=== PATIENT | female | born 1950 | race Hispanic/Latino ===

== ENCOUNTER 2025-01-13 13:30 | Inpatient (IN) | payer OTHER, MEDICAID ==
[~2025-01-13] VITALS: Ht 167.6 cm; Wt 48.2 kg
[2025-01-13] VITALS (7 sets, daily range): BP systolic 137–170; BP diastolic 50–66; PULSE 65–79; RESP 13–20; TEMP 98.3–98.5; O2SAT 98
--- NOTE | 2025-01-13 14:37 | HP ---
[facility] HISTORY AND PHYSICAL Date of Service: Jan 13, 2025 Time of Service: 14:29 HISTORY OF PRESENT ILLNESS: Date of service: 01/13/2025, patient was seen in ER room 19 74-year-old female with underlying history of orthostasis, anxiety, COPD who presented to the ER for further evaluation of syncope and frequent falls. Patient states her symptoms have been ongoing for about a month and a half. She feels dizzy when sitting up and standing up and reports having blacking out spells. Sometimes she has noted palpitations prior to the syncopal episode. Denies any nausea, vomiting or abdominal pain. She felt dizzy at Dr. [facility] today when standing up and almost felt like she would pass out. She denies cardiac history otherwise. Denies any history of cardiac arrhythmia. Denies being on antihypertensive medications at home. Patient reports with her recent fall, she hit the back of her head. Denies any headache currently. She did sustain a open wound close to the right elbow. Denies any significant pain to upper or lower extremities. She denies any history of epilepsy/seizures. Denies urinary incontinence or fecal incontinence or biting her tongue during the syncopal episodes. Patient in clinic was noted to have significant orthostatic changes with systolic blood pressure dropping from 137 mmHg to 94 mmHg. She has been receiving IV fluids in the nursing facility as well. On presentation, patient was noted to be afebrile with T-max of 97.3 F, heart rate of 98, blood pressure of 118/40. Patient will be admitted for further management of orthostatic hypotension. Patient will receive IV fluids. We will obtain blood work, we will check TSH, rule out adrenal insufficiency as well we will see how patient progresses in the next 48-72 hours. REVIEW OF SYSTEMS CONSTITUTIONAL: Denies fevers, chills, or night sweats. Reports having decreased appetite NEUROLOGICAL: Denies headache, amaurosis fugax, motor weakness, sensory deficit, vertigo/spinning sensation, gait abnormalities, or tremors. ENT: No hearing loss, otalgia, otorrhea, rhinitis, rhinorrhea, hoarseness, or sore throat. CARDIOVASCULAR: reports having recurrent syncopal episodes ongoing for the past one and a half month. PULMONARY: Denies any shortness of breath, cough, phlegm/sputum, hemoptysis, pleuritic chest pain. SLEEP: Denies morning headaches, daytime somnolence or napping. Denies difficulty falling asleep, staying asleep, waking from sleep. Denies knowledge of snoring. GASTROINTESTINAL: Denies any type of dysphagia to either liquids or solids. Denies nausea, vomiting, pyrosis, early satiety, abdominal pain, diarrhea, constipation, or changes in stool consistency or caliber. Denies coffee-ground emesis, hematemesis, hematochezia, or melanotic stools. GENITOURINARY: Denies frequency, urgency, nocturia, hematuria or incontinence (Storage/Irritative symptoms.) Low urinary stream, straining to void, urinary intermittency or hesitancy, splitting of the voiding stream, terminal dribbling. ENDOCRINOLOGIC: Denies polyuria, polydipsia, polyphagia or heat/cold intolerances. HEMATOLOGIC: Denies thrombophilia/previous clots, or coagulopathy/bleeding disorders. ONCOLOGIC: Denies personal history of malignancy. DERMATOLOGIC: Denies rashes or pruritus. PSYCHIATRIC: Denies any suicidal or homicidal ideation. Denies hallucinations. PAST MEDICAL HISTORY: History of COPD, dementia, anxiety, peripheral arterial disease, prior history of smoking PAST SURGICAL HISTORY: , history of surgery for abdominal aneurysm, cholecystectomy, prior history of lower extremity surgery for peripheral arterial disease PAST SOCIAL HISTORY: Patient is a resident of [facility] and rehab for the past five years, she has been using a wheelchair over the last one one due to recurrent syncopal episodes, needs assistance with IADLs FAMILY HISTORY: Denies major family history of medical conditions, denies any neurologic conditions Allergies: No known drug allergies Home medications: group home we will be sending list of medications to be reconciled and updated Coded Allergies: No Known Drug Allergies (Unverified Allergy, Unknown, 01/13/25) PHYSICAL EXAM GENERAL APPEARANCE: The patient is awake, alert, appears frail and elderly NEUROLOGICAL: Cranial nerves II-XII grossly intact. Motor is 5/5 in bilateral upper and lower extremities proximal to distal. No sensory deficits. HEENT: Face is symmetric. Pupils are equal and reactive. Extraocular movements are intact. NECK: Supple. No JVD. No thyromegaly. No submental, submandibular, pre- /postauricular, occipital or supraclavicular lymphadenopathy. CHEST: Normal chest expansion. No Telemetry. LUNGS: Absence of any rales, rhonchi or any wheezing. CARDIOVASCULAR: Regular. S1 and S2 normal. No appreciable rubs, murmurs or gallops. ABDOMEN: Soft, nontender, and nondistended. There is no rebound, voluntary guarding, or rigidity. : Deferred. No Nixon. EXTREMITIES: Non-edematous and not cyanotic. No clubbing. Good capillary refill. SKIN: Open wound noted to the right elbow with skin tear, multiple abrasions noted of the upper and lower extremity Vital Sign (Last 24 Hours) 01/13/25 14:19 Temp 97.3 Pulse 98 Resp 17 B/P (MAP) 118/40 Pulse Ox 98 O2 Delivery Room Air O2 Flow Rate 0 LABS: Labs including CBC, CMP, magnesium, CK, TSH is pending Current Medications Medications (Trade) Dose Ordered Sig/Garry Route PRN Reason Start Time Stop Time Status Last Admin Dose Admin Acetaminophen (TYLenol 325MG TAB) 650 mg Q6H PRN PO MILD PAIN (1-3) 01/13/25 14:30 02/12/25 14:29 UNV Albuterol (DUOneb) 1 udvial Q6H PRN IH SHORTNESS OF BREATH 01/13/25 14:30 02/12/25 14:29 UNV Atorvastatin Calcium (LIPItor 40MG) 40 mg HS PO 01/13/25 21:00 02/12/25 20:59 UNV Clonazepam (clonazePAM 0.5 mg) 0.5 mg BID PRN PO anxiety 01/13/25 14:30 02/12/25 14:29 UNV Memantine (NAmenDA 5 MG TAB) 5 mg DAILY PO 01/14/25 09:00 02/13/25 08:59 UNV Montelukast Sodium (SinguLAIR) 10 mg HS PO 01/13/25 21:00 02/12/25 20:59 UNV Ondansetron HCl (zoFRAN 4MG INJ) 4 mg Q6H PRN IVP NAUSEA/VOMITING 01/13/25 14:30 02/12/25 14:29 UNV Polyethylene Glycol (MIRalax 3350 17 GM POWD.PACK) 17 gm DAILY PRN PO constipation 01/13/25 14:30 02/12/25 14:29 UNV Sodium Chloride 1,000 ml @ 75 mls/hr [id number] IV 01/13/25 14:30 02/12/25 14:29 UNV Tiotropium [place] (Spiriva) 18 mcg DAILY IH 01/14/25 09:00 02/13/25 08:59 UNV Trazodone HCl (DesyREL/OlepTRO) 75 mg HS PO 01/13/25 21:00 02/12/25 20:59 UNV Venlafaxine HCl (EffEXOR 75 MG TAB) 75 mg DAILY PO 01/14/25 09:00 02/13/25 08:59 UNV DIAGNOSTICS / RADIOLOGY: Chest x-ray and CT head without contrast is pending ASSESSMENT: Orthostatic hypotension, POA Recurrent syncopal episodes with fall, POA Frailty/debility, POA History of orthostasis, POA History of COPD, POA History of anxiety disorder/ Depression, POA History of mild dementia, POA Hyperlipidemia, POA History of insomnia, POA PLAN: Patient will be admitted to cardiac telemetry floor We will keep patient on telemetry monitoring and rule out any malignant cardiac arrhythmia Patient did have orthostatic changes of systolic blood pressure at 137 while laying and dropping to 94 when standing up in clinic We will obtain formal orthostatic vitals: 140/47 mmHg, Sittin/49 mmHg, Standing 98/50 mmHg, patient does have orthostatic drop in blood pressure with positional changes concerning for dysautonomia We will start gentle IV hydration with NS and bolus patient 500 ml x 1 We will decrease dose of Trazodone from 75 mg to 50 mg at bedtime, trazodone is known to cause orthostasis and hypotension in geriatric patients Venlafaxine which patient takes at 150 mg can also cause orthostasis, will consider tele psych consult in am to see if dose can be titrated slowly down or patient can be switched to a dose equivalent medication without causing orthostasis We will obtain a full set of labs including CBC, CMP, magnesium, vitamin B12, f olic acid, TSH and cortisol testing for the morning Patient reports that with her prior syncopal episodes, she fell and hit her head, we will obtain a CT head without contrast as well as a chest x-ray We will follow up results of 2D echocardiogram and carotid ultrasound We will have Dr. Ray follow up with the patient tomorrow We will have Dr. Munson with Wound Care follow up with this patient We will have patient work with physical therapy tomorrow We will obtain urinalysis, we will monitor closely for signs of infection We will see how patient progresses in the next 48-72 hours, we will consider midodrine/fludrocortisone/ pindolol in case patient has significant orthostasis this admission, we will follow up cortisol level to rule out adrenal insuff iciency Date of service: 01/13/2025 Plan of care was discussed with patient at bedside, Patient has requested to be DNR/DNI, patient has prior wishes of DNR/DNI in her group home records, patient has signed paperwork for DNR/DNI which was witnessed by primary ER nurse at bedside, Baldemar Villarreal MD Advanced Care Planning: Which of the following were discussed: Hospice care: Yes __ No _X_ Therapeutic options: Yes _X_ No __ Advance directives: Yes _X_ No __ Other discussions: Discussed with who?: Patient Voluntary nature of this service was explained to the patient? Yes _x_ No __ Amount of time spent: 20 minutes BALDEMAR VILLARREAL MD Jan 13, 2025 14:37
[2025-01-13 14:49] LABS: IMMATURE GRANULOCYTE ABSOLUTE 0.03 K/uL (0-1); NUCLEATED RED BLOOD CELLS 0.0 % (0.0-0.19); PLATELET COUNT (AUTO) 274 K/uL (130-400); RED BLOOD CELL COUNT(AUTO) 4.37 MIL/uL (4.00-5.50); RED CELL DISTRIBUTION WIDTH 13.5 % (11.0-15.5); WHITE BLOOD COUNT (AUTO) 7.5 K/uL (4.8-10.8)
[2025-01-13 14:57] LABS: INR 1.02 (0.85-1.15)
[2025-01-13 14:58] LABS: CREATININE 0.9 mg/dL (0.5-1.0); GLOMERULAR FILTR. RATE CALC 67.0 mL/min (>90); GLUCOSE,RANDOM 85.0 mg/dL (70-105); SODIUM SERUM 143.0 mmol/L (136-145); UREA NITROGEN, BLOOD 9.0 mg/dL (7-18)
--- NOTE | 2025-01-13 15:00 | NUR ---
Orthostatic blood pressure check: Layin/47mmHg, Sittin/49mmHg, Standing 98/50mmHg
[2025-01-13 15:09] LABS: ASPARTATE AMINOTRANSFERASE 18.0 U/L (10-37); CREATINE KINASE, TOTAL 22.0 U/L (21-232); LACTATE DEHYDROGENASE 168.0 U/L (81-234); TOTAL PROTEIN, SERUM 7.0 g/dL (6.0-8.3)
[2025-01-13] MEDS ORDERED: PoTASSium chl 10% ELIXIR 20MEQ 20 MEQ/15 ML UDCUP PO PRN (15:30)
--- NOTE | 2025-01-13 15:30 | HMCIMG ---
EXAM: CR Chest, 1 View. CLINICAL HISTORY: hx of COPD, r/o any significant infiltrates COMPARISON: None provided. FINDINGS: LUNGS: There is no mass, infiltrate, or acute pulmonary abnormality. PLEURAL SPACES: No pleural effusion or pneumothorax. MEDIASTINUM: The cardiomediastinal silhouette is within normal limits. BONES: No acute osseous abnormality. IMPRESSION: No acute cardiopulmonary pathology is evident. /[place]
[2025-01-13] MEDS: 0.9%NACL 1000ML 1,000 ML IV SCH (15:57)
[2025-01-13] MEDS: 0.9% NACL 500ML IV.SOLN 500 ML IV ONE (15:57)
--- NOTE | 2025-01-13 16:36 | HMCIMG ---
EXAM: CT Head Without IV contrast. CLINICAL HISTORY: recurrent syncope, with falls, hit head with last episode TECHNIQUE: Axial computed tomography images of the head/brain without intravenous contrast. COMPARISON: None provided. FINDINGS: BRAIN: Age related atrophic changes in the form of prominence of cerebral sulci and ventricles. No evidence of acute hemorrhage. No mass lesion. No CT evidence for acute territorial infarct. No midline shift or extra-axial collections. VENTRICLES: No hydrocephalus. ORBITS: The orbits are unremarkable. SINUSES AND MASTOIDS: The paranasal sinuses and mastoid air cells are clear. BONES: No fracture. SOFT TISSUES: Unremarkable. IMPRESSION: 1. No acute intracranial findings. /[place]
[2025-01-13] MEDS ORDERED: MEMA1TAB PO (19:00)
[2025-01-13] MEDS ORDERED: ACET-3859 PO (19:00)
[2025-01-13] MEDS ORDERED: SENN8.6T32 PO (19:00)
[2025-01-13] MEDS ORDERED: CARB15DR OP (19:00)
[2025-01-13] MEDS ORDERED: VENL-83 PO (19:00)
[2025-01-13] MEDS ORDERED: CYAN10007 IJ (19:00)
[2025-01-13] MEDS ORDERED: ALEN70TA80 PO (19:00)
[2025-01-13] MEDS ORDERED: POLY17PO4 PO (19:00)
[2025-01-13] MEDS ORDERED: SULF1TAB42 PO (19:00)
[2025-01-13] MEDS ORDERED: LACHLOT TP (19:00)
[2025-01-13] MEDS ORDERED: ALBUHFA IH (19:00)
[2025-01-13] MEDS ORDERED: CHOL100046 PO (19:00)
[2025-01-13] MEDS ORDERED: SUCR1TAB28 PO (19:00)
[2025-01-13] MEDS ORDERED: ATOR40TA69 PO (19:00)
[2025-01-13] MEDS ORDERED: LACT1CAP90 PO (19:00)
[2025-01-13] MEDS ORDERED: DIPH25CA85 PO (19:00)
[2025-01-13] MEDS ORDERED: CALC-1125 PO (19:00)
[2025-01-13] MEDS ORDERED: MONT-46 PO (19:00)
[2025-01-13] MEDS ORDERED: LOPE-198 PO (19:00)
[2025-01-13] MEDS ORDERED: MELA3CAP2 PO (19:00)
[2025-01-13] MEDS ORDERED: TIOT4MIS2 IH (19:00)
[2025-01-13] MEDS ORDERED: TRAZ-185 PO (19:00)
[2025-01-13] MEDS ORDERED: NEOM1OIN19 TP (19:00)
[2025-01-13] MEDS ORDERED: CLON0.5T23 PO (19:00)
[2025-01-13] MEDS ORDERED: ONDA-243 PO (19:00)
[2025-01-13] MEDS: ARTIFICAL TEARS SOL 15 ML OP SCH (21:00)
[2025-01-13] MEDS: MELATONIN 5 MG TABLET PO SCH (22:00)
[2025-01-13] MEDS: SUCRALFATE 1 GM TABLET PO SCH (22:00)
--- NOTE | 2025-01-13 22:07 | NUR ---
CALLED TO GIVE REPORT TO NURSE LYNDON, NURSE WAS IN ANOTHER PTS ROOM, WILL CALL ME BACK
--- NOTE | 2025-01-13 22:33 | NUR ---
CALLED FOR REPORT AGAIN NURSE UNAVAILABLE, WILL CALL BACK AGAIN
--- NOTE | 2025-01-13 23:00 | NUR ---
REPORT GIVEN TO LYNDON SANTACRUZ, PT TRANSFERRED SAFELY WITHOUT INCIDENT WITH MAG AND NS.
--- NOTE | 2025-01-13 23:05 | NUR ---
Report taken at this time. Based on the information provided by nurse Juliana Foley, the Mortgage Funder, the [employer]ist [employer], and realty specialist have not been called or made aware of consultation. Consultation orders placed by [employer] at 1400.
[2025-01-13] MEDS: MAGNESIUM 2GM PREMIX 50ML 50 ML IV SCH (23:11)
[2025-01-14] VITALS (17 sets, daily range): BP systolic 86–143; BP diastolic 54–72; PULSE 73–140; RESP 16–20; TEMP 97.9–98.4; O2SAT 94–98
[2025-01-14] MEDS ORDERED: ALBUTEROL 0.083% 2.5 MG/3 ML INH IH PRN (04:00)
[2025-01-14 04:41] LABS: IMMATURE GRANULOCYTE ABSOLUTE 0.03 K/uL (0-1); NUCLEATED RED BLOOD CELLS 0.0 % (0.0-0.19); PLATELET COUNT (AUTO) 225 K/uL (130-400); RED BLOOD CELL COUNT(AUTO) 4.20 MIL/uL (4.00-5.50); RED CELL DISTRIBUTION WIDTH 13.5 % (11.0-15.5); WHITE BLOOD COUNT (AUTO) 6.6 K/uL (4.8-10.8)
[2025-01-14 04:56] LABS: CREATININE 0.7 mg/dL (0.5-1.0); GLOMERULAR FILTR. RATE CALC 91.0 mL/min (>90); GLUCOSE,RANDOM 90.0 mg/dL (70-105); SODIUM SERUM 143.0 mmol/L (136-145); UREA NITROGEN, BLOOD 8.0 mg/dL (7-18)
--- NOTE | 2025-01-14 05:35 | EKG ---
[facility] Test Date: 2025-01-13 Test Time: 14:47:02 Pat Name: ROBERT KING Department: [facility] Patient ID: [id number] Room: 202 1 Gender: F [employer]: [id number] : 1950 Requested By: BALDEMAR MANN Order Number: [id number] Reading MD: Joe Ramirez Measurements Intervals [place] Rate: 84 P: 77 CT: 167 QRS: 26 QRSD: 86 T: 67 QT: 387 QTc: 459 Interpretive Statements Sinus rhythm No previous ECG available for comparison Electronically Signed On 01-15-2025 17:28:52 CDT by Joe Ramirez Please click the below link to view image of tracing.
--- NOTE | 2025-01-14 05:52 | CONS ---
CONSULT NOTE: endocrinology consult chief complaint:dizziness and frequent falls reason for consult: thyrotoxicosis Date of Service: Jan 14, 2025 HISTORY OF PRESENT ILLNESS: 74-year-old female with underlying history of orthostasis, anxiety, COPD who presented to the ER for further evaluation of tachypnea and frequent falls. Patient states her symptoms have been ongoing for about a month and a half. She feels dizzy when sitting up and standing up and reports having blacking out spells. Sometimes she has noted palpitations prior to the syncopal episode. Denies any nausea, vomiting or abdominal pain. She felt dizzy and Dr. Mac clinic today when standing up and almost felt like she would pass out. She denies cardiac history otherwise. Denies any history of cardiac arrhythmia. Denies being on antihypertensive medications at home. Patient reports with her recent fall, she should the back of her head. She denies any history of epilepsy/seizures. Denies urinary incontinence or fecal incontinence or biting her tongue during the syncopal episodes. Patient in clinic was noted to have significant orthostatic changes with systolic blood pressure dropping from 137 mmHg to 94 mmHg. She has been receiving IV fluids in the nursing facility as well. On presentation, patient was noted to be afebrile with T-max of 97.3 F, heart rate of 98, blood pressure of 118/40. TSH 0.15, t 3 free 2.87 and t 4 free 1.04 am cortisol is pending and rule out adrenal insufficiency. REVIEW OF SYSTEMS CONSTITUTIONAL: Denies fevers, chills, or night sweats. Reports having decreased appetite NEUROLOGICAL: Denies headache, amaurosis fugax, motor weakness, sensory deficit, vertigo/spinning sensation, gait abnormalities, or tremors. ENT: No hearing loss, otalgia, otorrhea, rhinitis, rhinorrhea, hoarseness, or sore throat. CARDIOVASCULAR: reports having recurrent syncopal episodes ongoing for the past one and a half month. PULMONARY: Denies any shortness of breath, cough, phlegm/sputum, hemoptysis, pleuritic chest pain. SLEEP: Denies morning headaches, daytime somnolence or napping. Denies difficulty falling asleep, staying asleep, waking from sleep. Denies knowledge of snoring. GASTROINTESTINAL: Denies any type of dysphagia to either liquids or solids. Denies nausea, vomiting, pyrosis, early satiety, abdominal pain, diarrhea, constipation, or changes in stool consistency or caliber. Denies coffee-ground emesis, hematemesis, hematochezia, or melanotic stools. GENITOURINARY: Denies frequency, urgency, nocturia, hematuria or incontinence (Storage/Irritative symptoms.) Low urinary stream, straining to void, urinary intermittency or hesitancy, splitting of the voiding stream, terminal dribbling. ENDOCRINOLOGIC: Denies polyuria, polydipsia, polyphagia or heat/cold intolerances. HEMATOLOGIC: Denies thrombophilia/previous clots, or coagulopathy/bleeding disorders. ONCOLOGIC: Denies personal history of malignancy. DERMATOLOGIC: Denies rashes or pruritus. PSYCHIATRIC: Denies any suicidal or homicidal ideation. Denies hallucinations. PAST MEDICAL HISTORY: History of COPD, dementia, anxiety, peripheral arterial disease, prior history of smoking PAST SURGICAL HISTORY: , history of surgery for abdominal aneurysm, cholecystectomy, prior history of lower extremity surgery for peripheral arterial disease PAST SOCIAL HISTORY: Patient is a resident of [facility] and rehab for the past five years, she has been using a wheelchair over the last one one due to recurrent syncopal episodes, needs assistance with IADLs FAMILY HISTORY: Denies major family history of medical conditions, denies any neurologic conditions Allergies: No known drug allergies Home medications: jail we will be sending list of medications to be reconciled and updated Coded Allergies: No Known Drug Allergies (Unverified Allergy, Unknown, 01/13/25) PHYSICAL EXAM GENERAL APPEARANCE: The patient is awake, alert, appears frail and elderly NEUROLOGICAL: Cranial nerves II-XII grossly intact. Motor is 5/5 in bilateral upper and lower extremities proximal to distal. No sensory deficits. HEENT: Face is symmetric. Pupils are equal and reactive. Extraocular movements are intact. NECK: Supple. No JVD. No thyromegaly. No submental, submandibular, pre- /postauricular, occipital or supraclavicular lymphadenopathy. CHEST: Normal chest expansion. No Telemetry. LUNGS: Absence of any rales, rhonchi or any wheezing. CARDIOVASCULAR: Regular. S1 and S2 normal. No appreciable rubs, murmurs or gallops. ABDOMEN: Soft, nontender, and nondistended. There is no rebound, voluntary guarding, or rigidity. : Deferred. No Nixon. EXTREMITIES: Non-edematous and not cyanotic. No clubbing. Good capillary refill. SKIN: Open wound noted to the right elbow with skin tear, multiple abrasions noted of the upper and lower extremity DIAGNOSTICS / RADIOLOGY: Chest x-ray and CT head without contrast is pending ASSESSMENT: thyrotoxicosis clinically and biochemically thyrotoxic despite mildly low tsh. reports heat intolerance, palpitations, 15 lbs weight loss. TSH 0.15, t 3 free 2.87 and t 4 free 1.04 am cortisol is pending and rule out adrenal insufficiency. Orthostatic hypotension, POA Recurrent syncopal episodes with fall, POA Frailty/debility, POA History of orthostasis, POA History of COPD, POA History of anxiety disorder/ Depression, POA History of mild dementia, POA Hyperlipidemia, POA History of insomnia, POA PLAN: start methimazole 5 mg daily. thyroid ultrasound ordered, follow on am cortisol. check TSI. repeat thyroid function in 1 month. Thanks for allowing me to participate in patient care and will continue to follow up. Vital Signs 01/14/25 01/14/25 01/14/25 00:00 00:01 00:10 Temp 97.9 Pulse 120 Resp 18 B/P (MAP) 86/69 Pulse Ox 90 O2 Delivery Room Air O2 Flow Rate 0 FiO2 21 Hematology Labs: Test 01/14/25 04:06 Range/Units White Blood Count 6.6 4.8-10.8 K/uL Red Blood Count 4.20 4.00-5.50 MIL/uL Hemoglobin 12.4 12.0-16.0 g/dL Hematocrit 38.6 36-48 % Mean Corpuscular Volume 91.9 79-99 fL Mean Corpuscular Hemoglobin 29.5 27.0-33.0 pg Mean Corpuscular Hemoglobin Concent 32.1 32.0-36.0 g/dL Red Cell Distribution Width 13.5 11.0-15.5 % Platelet Count 225 130-400 K/uL Mean Platelet Volume 9.3 7.5-10.5 fL Immature Granulocyte % (Auto) 0.5 0-1 % Neutrophils (%) (Auto) 68.5 40.0-77.0 % Lymphocytes (%) (Auto) 17.5 L 21.0-51.0 % Monocytes (%) (Auto) 9.4 3.0-13.0 % Eosinophils (%) (Auto) 3.8 0.0-8.0 % Basophils (%) (Auto) 0.3 0.0-5.0 % Neutrophils # (Auto) 4.5 1.8-7.7 K/uL Lymphocytes # (Auto) 1.2 1.0-4.8 K/uL Monocytes # (Auto) 0.6 0.1-1.0 K/uL Eosinophils # (Auto) 0.25 0.00-0.70 K/uL Basophils # (Auto) 0.02 0.00-0.20 K/uL Absolute Immature Granulocyte (auto 0.03 0-1 K/uL Nucleated Red Blood Cells 0.0 0.0-0.19 % Chemistry Labs: Test 01/14/25 04:06 01/13/25 14:43 01/13/25 14:34 Range/Units Sodium Level 143 136-145 mmol/L Potassium Level 4.4 3.5-5.1 mmol/L Chloride Level 106 101-111 mmol/L Carbon Dioxide Level 30 21-32 mmol/L Blood Urea Nitrogen 8 7-18 mg/dL Creatinine 0.7 0.5-1.0 mg/dL Glomerular Filtration Rate Calc 91 >90 mL/min Random Glucose 90 70-105 mg/dL Total Calcium 9.4 8.5-10.1 mg/dL Free Thyroxine (T4) Direct 1.04 0.76-1.46 ng/dL Free Triiodothyronine (T3) pg/mL 2.87 2.18-3.98 pg/mL Magnesium Level 1.70 L 1.80-2.40 mg/dL Total Bilirubin 0.2 0.2-1.0 mg/dL Aspartate Amino Transf (AST/SGOT) 18 10-37 U/L Alanine Aminotransferase (ALT/SGPT) 19 12-78 U/L Alkaline Phosphatase 188 H 50-136 U/L Lactate Dehydrogenase 168 81-234 U/L Total Creatine Kinase 22 21-232 U/L C-Reactive Protein, Quantitative 3.10 H 0.5-3.0 mg/L Total Protein 7.0 6.0-8.3 g/dL Albumin 3.4 L 3.5-5.0 g/dL Vitamin B12 Level 1027 H 193-986 pg/mL Folic Acid (LAB) 1.20 L 2-20 ng/mL Procalcitonin < 0.05 L 0.05-0.5 ng/mL Thyroid Stimulating Hormone (TSH) 0.15 L 0.36-3.74 uIU/mL Coagulation Labs: Test 01/13/25 14:34 Range/Units Prothrombin Time 10.8 9.6-11.6 SEC Prothromb Time International Ratio 1.02 0.85-1.15 Activated Partial Thromboplast Time 24.7 L 26.3-35.5 SEC Current Medications Medications (Trade) Dose Ordered Sig/Garry Route Start Time Stop Time Status Last Admin Dose Admin Artificial Tears (Artificial Tears) TID OP 01/13/25 21:00 02/12/25 20:59 Atorvastatin Calcium (LIPItor 40MG) 40 mg HS PO 01/13/25 21:00 02/12/25 20:59 01/13/25 21:59 40 MG Calcium Carbonate (Oyster Shell Ca 500mg Tab) 500 mg DAILY PO 01/14/25 09:00 02/13/25 08:59 Folic Acid (FolVITE 5 MG/ML VIAL) 1 mg Q24H IV 01/13/25 16:30 01/18/25 16:30 01/13/25 16:42 1 MG Home Med (Home Medication) DAILY PO 01/14/25 09:00 02/13/25 08:59 Ipratropium [place] (AtrovENT UD) 0.5 mg [id number] IH 01/14/25 06:00 02/13/25 05:59 Lactic Acid (Lachydrin 226gm Lotion) 1 gm DAILY TP 01/14/25 09:00 02/13/25 08:59 Lactobacillus Rhamnosus ([facility]) 1 each DAILY PO 01/14/25 09:00 02/13/25 08:59 Magnesium Sulfate 50 ml @ 0 mls/hr PROTOCOL IV 01/13/25 15:30 02/12/25 15:29 01/13/25 23:11 25 MLS/HR Melatonin (Melatonin) 5 mg HS PO 01/13/25 21:00 02/12/25 20:59 01/13/25 22:00 5 MG Memantine (NAmenDA 5 MG TAB) 5 mg DAILY PO 01/14/25 09:00 02/13/25 08:59 Montelukast Sodium (SinguLAIR) 10 mg HS PO 01/13/25 21:00 02/12/25 20:59 01/13/25 22:00 10 MG Neomycin/ Polymyxin/ Bacitracin (Triple Antibiotic Ointment) 1 appl DAILY TP 01/14/25 09:00 02/13/25 08:59 Sodium Chloride 1,000 ml @ 50 mls/hr Q20H IV 01/13/25 14:30 02/12/25 14:29 01/13/25 16:46 50 MLS/HR Sucralfate (Carafate) 1 gm HS PO 01/13/25 21:00 02/12/25 20:59 01/13/25 22:00 1 GM Tiotropium [place] (Spiriva) 18 mcg DAILY IH 01/14/25 09:00 01/13/25 15:57 DC Trazodone HCl (DesyREL/OlepTRO) 50 mg HS PO 01/13/25 21:00 02/12/25 20:59 01/13/25 22:00 50 MG Trazodone HCl (DesyREL/OlepTRO) 75 mg HS PO 01/13/25 21:00 01/13/25 14:58 DC Venlafaxine HCl (EffEXOR 75 MG TAB) 75 mg DAILY PO 01/14/25 09:00 01/13/25 19:46 DC Venlafaxine HCl (EffEXOR 75 MG TAB) 150 mg DAILY PO 01/14/25 09:00 02/13/25 08:59 PRISCILA ULRICH MD Jan 14, 2025 05:52
--- NOTE | 2025-01-14 07:45 | CONS ---
[facility] CARDIOLOGY CONSULTATION NOTE Date Patient Seen: Jan 14, 2025 Time of Visit: 07:38 Reason for Consultation: [syncope ] History of Present Illness: [ 74-year-old female with underlying history of orthostasis, anxiety, COPD, h/o irregular heart beat who presented to the ER for further evaluation of tachypnea and frequent falls and syncope over the last two months. I saw her for the first time since 2022 due to ongoing falls and syncope. She feels dizzy when sitting up and standing up and reports having blacking out spells. Sometimes she has noted palpitations prior to the syncopal episode. Denies any nausea, vomiting or abdominal pain. Denies being on antihypertensive medications at home. Denies urinary incontinence or fecal incontinence or biting her tongue during the syncopal episodes. Patient in clinic was noted to have significant orthostatic changes with systolic blood pressure dropping from 137 mmHg to 94 mmHg. She has been receiving IV fluids in the nursing facility as well. On presentation, patient was noted to be afebrile with T-max of 97.3 F, heart rate of 98, blood pressure of 118/40. Patient will be admitted for further management of orthostatic hypotension. ] Past Medical History: [ ] Past Surgical History: [ ] Family History: [ ] Social History: [ ] Habits: [Never] smoker. [Denies] alcohol consumption. [Denies] illicit drug use Home Meds: [ ] Current Meds: [ ] Review of Systems: CONST: [No fever, fatigue, or weight changes.] EYES: [No recent vision problems.] ENT: [No congestion, ear pain, or sore throat.] C/V: [No chest pain, palpitations, or edema. + syncope, dizziness] RESP: [No cough, congestion, wheezing or shortness of breath.] GI: [No abdominal pain, nausea, vomiting, constipation, or diarrhea.] : [No incontinence or dysuria.] SKIN: [No rash.] NEURO: [No headache, focal numbness or weakness.+ dizziness.] PSYCH: [No depression or anxiety.] HEME: [No abnormal bruising or bleeding.] LYMPH: [No swollen glands.] Physical Examination: GENERAL: [No acute distress.] HEAD: [Normal with no signs of head trauma.] EYES: [PERRLA, EOMI, conjunctiva and sclera normal.] ENT: [Hearing grossly intact, normal oropharynx.] NECK: [Supple without JVD. There is no tenderness, lymphadenopathy, or masses. No thyromegaly. Normal carotid upstrokes without bruits.] LUNGS: [Clear breath sounds bilaterally. There are right basilar rales one third of the way up the chest. No wheezes, or rhonchi.] HEART: [Normal rate and rhythm. Normal S1 and S2 without mumurs, gallop or rub.] VASC: [Peripheral pulses +2 bilaterally.] ABD: [Bowel sounds normal, soft, nontender, no masses, no organomegaly. No audible bruits.] : [Not examined] LYMPH: [No lymphadenopathy noted.] EXT: [No clubbing, cyanosis or edema.] SKIN: [No rashes or lesions noted.] NEURO: [Awake, alert, and oriented x3. No focal sensory or strength deficits noted.] Vital Signs (last 8hr) Date Time Temp Pulse Resp B/P (MAP) Pulse Ox O2 Delivery O2 Flow Rate FiO2 01/14/25 07:08 73 20 N/A Room Air 21 01/14/25 04:00 98.1 90 18 121/66 97 Room Air 01/14/25 00:10 120 18 86/69 90 Room Air 01/14/25 00:05 85 18 117/64 89 Room Air 01/14/25 00:01 96 Room Air* 0 21 01/14/25 00:00 97.9 74 18 143/57 100 Room Air Laboratory: [ ] Hematology Labs: Test 01/14/25 04:06 Range/Units White Blood Count 6.6 4.8-10.8 K/uL Red Blood Count 4.20 4.00-5.50 MIL/uL Hemoglobin 12.4 12.0-16.0 g/dL Hematocrit 38.6 36-48 % Mean Corpuscular Volume 91.9 79-99 fL Mean Corpuscular Hemoglobin 29.5 27.0-33.0 pg Mean Corpuscular Hemoglobin Concent 32.1 32.0-36.0 g/dL Red Cell Distribution Width 13.5 11.0-15.5 % Platelet Count 225 130-400 K/uL Mean Platelet Volume 9.3 7.5-10.5 fL Immature Granulocyte % (Auto) 0.5 0-1 % Neutrophils (%) (Auto) 68.5 40.0-77.0 % Lymphocytes (%) (Auto) 17.5 L 21.0-51.0 % Monocytes (%) (Auto) 9.4 3.0-13.0 % Eosinophils (%) (Auto) 3.8 0.0-8.0 % Basophils (%) (Auto) 0.3 0.0-5.0 % Neutrophils # (Auto) 4.5 1.8-7.7 K/uL Lymphocytes # (Auto) 1.2 1.0-4.8 K/uL Monocytes # (Auto) 0.6 0.1-1.0 K/uL Eosinophils # (Auto) 0.25 0.00-0.70 K/uL Basophils # (Auto) 0.02 0.00-0.20 K/uL Absolute Immature Granulocyte (auto 0.03 0-1 K/uL Nucleated Red Blood Cells 0.0 0.0-0.19 % Chemistry Labs: Test 01/14/25 04:06 01/13/25 14:43 01/13/25 14:34 Range/Units Sodium Level 143 136-145 mmol/L Potassium Level 4.4 3.5-5.1 mmol/L Chloride Level 106 101-111 mmol/L Carbon Dioxide Level 30 21-32 mmol/L Blood Urea Nitrogen 8 7-18 mg/dL Creatinine 0.7 0.5-1.0 mg/dL Glomerular Filtration Rate Calc 91 >90 mL/min Random Glucose 90 70-105 mg/dL Total Calcium 9.4 8.5-10.1 mg/dL Magnesium Level 2.50 H 1.80-2.40 mg/dL Free Thyroxine (T4) Direct 1.04 0.76-1.46 ng/dL Free Triiodothyronine (T3) pg/mL 2.87 2.18-3.98 pg/mL Total Bilirubin 0.2 0.2-1.0 mg/dL Aspartate Amino Transf (AST/SGOT) 18 10-37 U/L Alanine Aminotransferase (ALT/SGPT) 19 12-78 U/L Alkaline Phosphatase 188 H 50-136 U/L Lactate Dehydrogenase 168 81-234 U/L Total Creatine Kinase 22 21-232 U/L C-Reactive Protein, Quantitative 3.10 H 0.5-3.0 mg/L Total Protein 7.0 6.0-8.3 g/dL Albumin 3.4 L 3.5-5.0 g/dL Vitamin B12 Level 1027 H 193-986 pg/mL Folic Acid (LAB) 1.20 L 2-20 ng/mL Procalcitonin < 0.05 L 0.05-0.5 ng/mL Thyroid Stimulating Hormone (TSH) 0.15 L 0.36-3.74 uIU/mL Coagulation Labs: Test 01/13/25 14:34 Range/Units Prothrombin Time 10.8 9.6-11.6 SEC Prothromb Time International Ratio 1.02 0.85-1.15 Activated Partial Thromboplast Time 24.7 L 26.3-35.5 SEC Diagnostics / Radiology: [Copy/Paste Echos/Imaging Report here] Assessment: [Orthostatic hypotension -IVFs -pending AM cortisol -f/u UA -F/u 2d echo and carotid US -Tele shows no events -apply compression socks -start midodrine 2.5 mg qd Adrianna Ray MD ] ADRIANNA RAY MD Jan 14, 2025 07:45
[2025-01-14] MEDS ORDERED: COMPOUND IV REFRIGERATED 1 EACH IVSOLN MISC PRN (08:30)
[2025-01-14] MEDS ORDERED: SUB TO IPRATROPIUM 0.5MG/2.5ML PER P&T IH SCH (09:00)
[2025-01-14] MEDS: Cholecalciferol (Vitamin D3) PO SCH (09:00)
--- NOTE | 2025-01-14 09:19 | NUR ---
DCP: RETURN TO [facility] Pt is a retirement resident a [facility]. [facility] Staff assists pt with ADLS,meals, meds, transfers. Pt reports she uses a w/c a facility because of risk for falls. PCP is Daylin Escobar and brother Scooter Lee is ER contact [phone]. Pt signed consent to return to [facility]. CM aware Addendum: 01/14/25 at 0927 by ARTURO CARY Amended: Links added.
[2025-01-14] MEDS: CALCIUM CARB 500MG PO SCH (10:12)
[2025-01-14] MEDS: LACTOBACILLUS RHAMNOSUS GG 1 EACH CAP.SPRINK PO SCH (10:12)
[2025-01-14] MEDS: AMMONIUM LACTATE 226GM LOTION TP SCH (10:12)
[2025-01-14] MEDS: NEOMY SULF/BACITRA/POLYMYXIN B 1 EACH PACKET TP SCH (10:13)
--- NOTE | 2025-01-14 11:05 | NUR ---
[facility] Consult: Patient assessed by wound healing team. See wound assessment. Assessment and recommendations provided to primary nurse. Education provided. Addendum: 01/14/25 at 1305 by MIC FLOWER RN RN/ Amended: Links added.
[2025-01-14 11:21] LABS: APPEARANCE,URINE CLEAR (CLEAR); GLUCOSE, URINE (UA) NEGATIVE (NEGATIVE); LEUKOCYTE ESTERASE ,URINE NEGATIVE Leu/uL (NEGATIVE); NITRATE,URINE NEGATIVE (NEGATIVE); OCCULT BLOOD,URINE NEGATIVE (NEGATIVE)
[2025-01-14 11:29] LABS: ADD UA MICROSCOPIC NO
--- NOTE | 2025-01-14 11:35 | NUR ---
Nutrition consult per BMI for age Reviewed labs, notes, and medications. Pt with dementia, HH, b-complex, Mg 2.50, elevated b12, folic acid (L), elevated CRP per chart review. Wt via standing scale, last BM 01/13/25, moderate fat and muscle loss, no ulcers noted, adequate nutrition per nursing. Pt with severe PCM, Supplement thiamin 100 mg/day for 5-7 days + MVI QD for at least 10 days Recommendations: -Provide HH+ ensure HP TID w/ trays + hi kcal -Monitor PO intake -Encourage PO intake as able -Monitor BM -If no BM >3 days consider stool softener -Monitor electrolytes -Replenish electrolytes per protocol -Monitor wts -Reweigh as able -Order Vit D, vit b-12 labs to rule out deficiencies -Provide b-complex + MVI QD -Texture per MANAGER FREELANCE recs -Recommend Pt to follow up with PCP -Monitor goals of care RD to follow + available for consult per protocol Addendum: 01/14/25 at [address] Amended: Links added.
--- NOTE | 2025-01-14 11:38 | HMCIMG ---
EXAMINATION: DUPLEX ULTRASOUND EXAMINATION OF THE BILATERAL CAROTID AND VERTEBRAL ARTERIES. CLINICAL HISTORY: Recurrent syncope ??? 1 month, dizziness. COMPARISON: None provided. TECHNIQUE: Real-time ultrasound scan of the bilateral carotid and vertebral arteries, 2-D grayscale, with color Doppler flow and spectral waveform analysis. FINDINGS: Color and spectral Doppler interrogation of the carotid vessels on the right demonstrate peak systolic velocities as follows: CCA (Proximal and distal): 39 and 44 cm/s respectively. Bulb: 42 cm/s. ECA: 106 cm/s. ICA (Proximal, mid, and distal): 71, 94, and 120 cm/s respectively. Vertebral artery demonstrates antegrade flow: 49 cm/s. Right ICA/CCA ratio: 2.5 Peak systolic velocities on the left are as follows: CCA (Proximal and distal): 47 and 52 cm/s respectively. Bulb: 75 cm/s. ECA: 95 cm/s. ICA (Proximal, mid, and distal): 72, 122, and 95 cm/s respectively. Vertebral artery demonstrates antegrade flow: 98 cm/s. Left ICA/CCA ratio: 2.3 Both the common carotid arteries and their branches reveal mild intimal thickening. There are calcified plaques in the right bulb and common carotid, proximal internal, and external carotid arteries causing about 20% to 30% diameter stenosis. There are calcified plaques in the left bulb, common carotid, and proximal internal carotid arteries about 20% to 30% diameter stenosis. IMPRESSION: Mild intimal thickening in the bilateral carotid arteries and their branches. Plaques as described. Bilateral ICA/CCA ratio is more than 2, suggesting 50% to 69% stenosis. Recommend CT/MR angiogram. /[place]
--- NOTE | 2025-01-14 11:38 | HMCIMG ---
EXAMINATION: ULTRASOUND OF THE ABDOMEN (LIMITED) WITH COLOR DOPPLER. CLINICAL HISTORY: Elevated alkaline phosphatase. COMPARISON: None. TECHNIQUE: Real-time grayscale ultrasound images of the abdomen. In addition, color Doppler is medically necessary to perform in order to evaluate vascularity and blood flow. FINDINGS: Liver: Normal in caliber, the right hepatic lobe measures 12.0 cm in the craniocaudal dimension. There is increased echogenicity of the hepatic parenchyma. There is no intrahepatic biliary ductal dilatation. There is normal spectral Doppler of the main portal vein. There is a cyst that measures 1.0 x 1.0 x 1.0 cm in the left lobe. Gallbladder: Post cholecystectomy status. Common bile duct is normal in caliber, measuring 0.6 cm. Pancreas: Normal in caliber and echotexture. No calcification or dilated pancreatic duct. The right kidney is normal in caliber, the right kidney measures 9.6 x 4.3 x 4.4 cm in craniocaudal, AP, and transverse dimensions respectively. There is normal renal cortical thickness, and cortical echogenicity. There is no renal calculus or hydronephrosis. There is a simple cortical cyst that measures 3.0 x 4.3 x 4.6 cm in the right renal mid pole. IMPRESSION: Hepatic steatosis. Simple hepatic cyst. Post cholecystectomy status. Right renal simple cortical cyst. /[place]
--- NOTE | 2025-01-14 12:22 | NUR ---
NEW ORDER RECEIVED FROM DR. ULRICH FOR TAPAZOLE 5MG PO DAILY. ORDERS HAVE BEEN ENTERED AND CARRIED OUT.
--- NOTE | 2025-01-14 12:33 | PN ---
[facility] PROGRESS NOTE Date of Service: Jan 14, 2025 Time of Service: 12:31 SUBJECTIVE: [ ] 01/14 patient is seen and examined at bedside, case discussed with the RN, no acute events overnight, blood pressure 125/62, afebrile, saturating normal on room air, patient alert, following commands. Ultrasound carotid artery showing mild intimal thickening bilateral carotid arteries and their branches, plaques as described, bilateral ICA/CCA ratio is more than two, suggesting 50 to 69% stenosis. Recommended CT/MR angiogram. Discussed with the patient. CT angio of the neck has been requested, we will follow. Cardiology input noted and appreciated, monitor orthostatic hypotension, continue IV fluids, echocardiogram, continue compression stockings, continue midodrine 2.5 mg p.o. daily. Follow a.m. cortisol, follow endocrinology input and recommendation. Discussed with the patient. REVIEW OF SYSTEMS CONSTITUTIONAL: Denies fevers, chills, or night sweats. Reports having decreased appetite NEUROLOGICAL: Denies headache, amaurosis fugax, motor weakness, sensory deficit, vertigo/spinning sensation, gait abnormalities, or tremors. ENT: No hearing loss, otalgia, otorrhea, rhinitis, rhinorrhea, hoarseness, or sore throat. CARDIOVASCULAR: reports having recurrent syncopal episodes ongoing for the past one and a half month. PULMONARY: Denies any shortness of breath, cough, phlegm/sputum, hemoptysis, pleuritic chest pain. SLEEP: Denies morning headaches, daytime somnolence or napping. Denies difficulty falling asleep, staying asleep, waking from sleep. Denies knowledge of snoring. GASTROINTESTINAL: Denies any type of dysphagia to either liquids or solids. Denies nausea, vomiting, pyrosis, early satiety, abdominal pain, diarrhea, constipation, or changes in stool consistency or caliber. Denies coffee-ground emesis, hematemesis, hematochezia, or melanotic stools. GENITOURINARY: Denies frequency, urgency, nocturia, hematuria or incontinence (Storage/Irritative symptoms.) Low urinary stream, straining to void, urinary intermittency or hesitancy, splitting of the voiding stream, terminal dribbling. ENDOCRINOLOGIC: Denies polyuria, polydipsia, polyphagia or heat/cold intolerances. HEMATOLOGIC: Denies thrombophilia/previous clots, or coagulopathy/bleeding dis orders. ONCOLOGIC: Denies personal history of malignancy. DERMATOLOGIC: Denies rashes or pruritus. PSYCHIATRIC: Denies any suicidal or homicidal ideation. Denies hallucinations. PHYSICAL EXAM GENERAL APPEARANCE: The patient is awake, alert, appears frail and elderly NEUROLOGICAL: Cranial nerves II-XII grossly intact. Motor is 5/5 in bilateral upper and lower extremities proximal to distal. No sensory deficits. HEENT: Face is symmetric. Pupils are equal and reactive. Extraocular movements are intact. NECK: Supple. No JVD. No thyromegaly. No submental, submandibular, pre- /postauricular, occipital or supraclavicular lymphadenopathy. CHEST: Normal chest expansion. No Telemetry. LUNGS: Absence of any rales, rhonchi or any wheezing. CARDIOVASCULAR: Regular. S1 and S2 normal. No appreciable rubs, murmurs or gallops. ABDOMEN: Soft, nontender, and nondistended. There is no rebound, voluntary guarding, or rigidity. : Deferred. No Nixon. EXTREMITIES: Non-edematous and not cyanotic. No clubbing. Good capillary refill. SKIN: Open wound noted to the right elbow with skin tear, multiple abrasions noted of the upper and lower extremity Vital Signs (last 8hr) Date Time Temp Pulse Resp B/P (MAP) Pulse Ox O2 Delivery O2 Flow Rate FiO2 01/14/25 08:01 124 87/72 01/14/25 08:00 97 Room Air* 0 21 01/14/25 07:58 98.2 95 18 125/62 97 Room Air 01/14/25 07:08 73 20 N/A Room Air 21 LABS: Laboratory: Test 01/14/25 10:52 01/14/25 04:06 01/13/25 14:43 01/13/25 14:34 Range/Units Urine Color LIGHT-YELLOW YELLOW Urine Appearance CLEAR CLEAR Urine pH 7.0 5.0-8.0 Urine Specific [place] 1.009 1.001-1.031 Urine Protein NEGATIVE NEGATIVE mg/dL Urine Glucose (UA) NEGATIVE NEGATIVE mg/dL Urine Ketones NEGATIVE NEGATIVE mg/dL Urine Occult Blood NEGATIVE NEGATIVE Urine Nitrate NEGATIVE NEGATIVE Urine Bilirubin NEGATIVE NEGATIVE mg/dL Urine Urobilinogen 0.2 0.2-1.0 mg/dL Urine Leukocyte Esterase NEGATIVE NEGATIVE Traci/uL White Blood Count 6.6 4.8-10.8 K/uL Red Blood Count 4.20 4.00-5.50 MIL/uL Hemoglobin 12.4 12.0-16.0 g/dL Hematocrit 38.6 36-48 % Mean Corpuscular Volume 91.9 79-99 fL Mean Corpuscular Hemoglobin 29.5 27.0-33.0 pg Mean Corpuscular Hemoglobin Concent 32.1 32.0-36.0 g/dL Red Cell Distribution Width 13.5 11.0-15.5 % Platelet Count 225 130-400 K/uL Mean Platelet Volume 9.3 7.5-10.5 fL Immature Granulocyte % (Auto) 0.5 0-1 % Neutrophils (%) (Auto) 68.5 40.0-77.0 % Lymphocytes (%) (Auto) 17.5 L 21.0-51.0 % Monocytes (%) (Auto) 9.4 3.0-13.0 % Eosinophils (%) (Auto) 3.8 0.0-8.0 % Basophils (%) (Auto) 0.3 0.0-5.0 % Neutrophils # (Auto) 4.5 1.8-7.7 K/uL Lymphocytes # (Auto) 1.2 1.0-4.8 K/uL Monocytes # (Auto) 0.6 0.1-1.0 K/uL Eosinophils # (Auto) 0.25 0.00-0.70 K/uL Basophils # (Auto) 0.02 0.00-0.20 K/uL Absolute Immature Granulocyte (auto 0.03 0-1 K/uL Nucleated Red Blood Cells 0.0 0.0-0.19 % Sodium Level 143 136-145 mmol/L Potassium Level 4.4 3.5-5.1 mmol/L Chloride Level 106 101-111 mmol/L Carbon Dioxide Level 30 21-32 mmol/L Blood Urea Nitrogen 8 7-18 mg/dL Creatinine 0.7 0.5-1.0 mg/dL Glomerular Filtration Rate Calc 91 >90 mL/min Random Glucose 90 70-105 mg/dL Total Calcium 9.4 8.5-10.1 mg/dL Magnesium Level 2.50 H 1.80-2.40 mg/dL Free Thyroxine (T4) Direct 1.04 0.76-1.46 ng/dL Free Triiodothyronine (T3) pg/mL 2.87 2.18-3.98 pg/mL Prothrombin Time 10.8 9.6-11.6 SEC Prothromb Time International Ratio 1.02 0.85-1.15 Activated Partial Thromboplast Time 24.7 L 26.3-35.5 SEC Total Bilirubin 0.2 0.2-1.0 mg/dL Aspartate Amino Transf (AST/SGOT) 18 10-37 U/L Alanine Aminotransferase (ALT/SGPT) 19 12-78 U/L Alkaline Phosphatase 188 H 50-136 U/L Lactate Dehydrogenase 168 81-234 U/L Total Creatine Kinase 22 21-232 U/L C-Reactive Protein, Quantitative 3.10 H 0.5-3.0 mg/L Total Protein 7.0 6.0-8.3 g/dL Albumin 3.4 L 3.5-5.0 g/dL Vitamin B12 Level 1027 H 193-986 pg/mL Folic Acid (LAB) 1.20 L 2-20 ng/mL Procalcitonin < 0.05 L 0.05-0.5 ng/mL Thyroid Stimulating Hormone (TSH) 0.15 L 0.36-3.74 uIU/mL Current Medications Medications (Trade) Dose Ordered Sig/Garry Route PRN Reason Start Time Stop Time Status Last Admin Dose Admin Acetaminophen (TYLenol 325MG TAB) 650 mg Q6H PRN PO MILD PAIN (1-3) 01/13/25 14:30 02/12/25 14:29 Albuterol (DUOneb) 1 udvial Q6H PRN IH SHORTNESS OF BREATH 01/13/25 14:30 01/14/25 03:42 DC Albuterol Sulfate (Proventil 0.083% 2.5mg/3ml) 2.5 mg Q6H PRN IH SHORTNESS OF BREATH 01/14/25 04:00 02/13/25 03:59 Artificial Tears (Artificial Tears) TID OP 01/13/25 21:00 02/12/25 20:59 Atorvastatin Calcium (LIPItor 40MG) 40 mg HS PO 01/13/25 21:00 02/12/25 20:59 01/13/25 21:59 40 MG Calcium Carbonate (Oyster Shell Ca 500mg Tab) 500 mg DAILY PO 01/14/25 09:00 02/13/25 08:59 01/14/25 10:12 500 MG Clonazepam (clonazePAM 0.5 mg) 0.5 mg BID PRN PO anxiety 01/13/25 14:30 02/12/25 14:29 Diphenhydramine HCl (BENAdryl CAP) 25 mg HS PRN PO ITCHING 01/13/25 19:30 02/12/25 19:29 Folic Acid (FolVITE 5 MG/ML VIAL) 1 mg Q24H IV 01/13/25 16:30 01/18/25 16:30 01/13/25 16:42 1 MG Home Med (Home Medication) DAILY PO 01/14/25 09:00 02/13/25 08:59 Hydralazine HCl (APRESOLine 20MG INJ) 10 mg Q6H PRN IV ADMINISTER FOR SBP > 180 01/13/25 17:30 02/12/25 17:29 Ipratropium [place] (AtrovENT UD) 0.5 mg [id number] IH 01/14/25 06:00 02/13/25 05:59 Lactic Acid (Lachydrin 226gm Lotion) 1 GRAM DAILY TP 01/14/25 09:00 02/13/25 08:59 01/14/25 10:12 1 GM Lactobacillus Rhamnosus ([facility]) 1 each DAILY PO 01/14/25 09:00 02/13/25 08:59 01/14/25 10:12 1 EACH Magnesium Sulfate 50 ml @ 0 mls/hr PROTOCOL IV 01/13/25 15:30 02/12/25 15:29 01/13/25 23:11 25 MLS/HR Melatonin (Melatonin) 5 mg HS PO 01/13/25 21:00 02/12/25 20:59 01/13/25 22:00 5 MG Memantine (NAmenDA 5 MG TAB) 5 mg DAILY PO 01/14/25 09:00 02/13/25 08:59 01/14/25 10:13 5 MG Methimazole (tapaZOLE) 5 mg DAILY PO 01/15/25 09:00 02/14/25 08:59 Methimazole (tapaZOLE) 10 mg DAILY PO 01/15/25 09:00 01/14/25 12:24 DC Midodrine (PROAMatine 5 MG TABLET) 2.5 mg DAILY PO 01/14/25 09:00 02/13/25 08:59 01/14/25 10:12 2.5 MG Midodrine (PROAMatine 5 MG TABLET) 5 mg TID PRN PO for BP less than 90/60 01/13/25 16:00 02/12/25 15:59 Montelukast Sodium (SinguLAIR) 10 mg HS PO 01/13/25 21:00 02/12/25 20:59 01/13/25 22:00 10 MG Neomycin/ Polymyxin/ Bacitracin (Triple Antibiotic Ointment) 1 appl DAILY TP 01/14/25 09:00 02/13/25 08:59 01/14/25 10:13 1 APPL Ondansetron HCl (zoFRAN 4MG INJ) 4 mg Q6H PRN IVP NAUSEA/VOMITING 01/13/25 14:30 02/12/25 14:29 Polyethylene Glycol (MIRalax 3350 17 GM POWD.PACK) 17 gm DAILY PRN PO constipation 01/13/25 14:30 02/12/25 14:29 Potassium Chloride 100 ml @ 100 mls/hr AD PRN IV POTASSIUM PROTOCOL 01/13/25 15:30 02/12/25 15:29 Potassium Chloride (K-Dur/Klor-Con 20meq) 20 meq AD PRN PO POTASSIUM PROTOCOL 01/13/25 15:30 02/12/25 15:29 Potassium Chloride (KCl 10% Elixir 20meq/15ml) 20 meq AD PRN PO POTASSIUM PROTOCOL 01/13/25 15:30 02/12/25 15:29 Sodium Chloride 1,000 ml @ 50 mls/hr Q20H IV 01/13/25 14:30 02/12/25 14:29 01/13/25 16:46 50 MLS/HR Sucralfate (Carafate) 1 gm HS PO 01/13/25 21:00 02/12/25 20:59 01/13/25 22:00 1 GM Tiotropium [place] (Spiriva) 18 mcg DAILY IH 01/14/25 09:00 01/13/25 15:57 DC Trazodone HCl (DesyREL/OlepTRO) 50 mg HS PO 01/13/25 21:00 02/12/25 20:59 01/13/25 22:00 50 MG Trazodone HCl (DesyREL/OlepTRO) 75 mg HS PO 01/13/25 21:00 01/13/25 14:58 DC Venlafaxine HCl (EffEXOR 75 MG TAB) 75 mg DAILY PO 01/14/25 09:00 01/13/25 19:46 DC Venlafaxine HCl (EffEXOR 75 MG TAB) 150 mg DAILY PO 01/14/25 09:00 02/13/25 08:59 01/14/25 10:13 150 MG DIAGNOSTICS / RADIOLOGY: [ ] ASSESSMENT: Orthostatic hypotension, POA Recurrent syncopal episodes with fall, POA Frailty/debility, POA History of orthostasis, POA History of COPD, POA History of anxiety disorder/ Depression, POA History of mild dementia, POA Hyperlipidemia, POA History of insomnia, POA PLAN: NEURO: Minimize central acting medications as possible. Fall Precautions. Well lighted room through the day and minimize interruptions through the night to prevent acute delirium. PULMONARY: Supplemental 02 as needed BiPAP as necessary, for respiratory distress Titrate Fio2 to keep Spo2 > or = 90% DuoNebs and CPT as needed IS hourly while awake for pulmonary hygiene prn Out of bed to chair as tolerated Maintain aspiration precautions at all times CARDIOVASCULAR: Follow hemodynamics. Vital signs per facility protocol GI & NUTRITION: Continue nutritional support Aspirations precautions Prokinetic agents and laxatives as needed KIDNEYS & ELECTROLYTES: Strict monitoring of intake and output Daily weights Avoid nephrotoxic agents Monitor electrolytes and replace as needed Goal urine output of 30mL/hr or 0.5mL/kg/hr Medications to be dosed according to renal function. Avoid contrast if possible ENDOCRINE: Maintain blood glucose between 100-180 at all times. Insulin sliding scale for blood glucose management Hypoglycemia and hyperglycemia protocol in place INFECTIOUS DISEASE: Trend temperature, WBC and procalcitonin level Follow cultures, deescalate antibiotics as soon as possible. Panculture if new onset fever HEMATOLOGY & COAGULATION: Monitor H&H. Keep Hgb > 7 Transfuse 1 unit of PRBC for Hgb < 7 Transfuse 1 pack of platelets of platelets < 20, 000 Watch for any signs and symptoms of bleeding SKIN: Pressure ulcer prevention per facility protocol Specialty mattress as needed ORTHO/REHAB Continue PT/OT PRN: MEDICATIONS Tylenol 650 mg po every 4 hrs for fever zofran 4 mg IV every 6 hrs for n/v Hydralazine 5 mg IV every 4 hrs systolic pressure > 160 bowel regiment: lactulose 20 gm PO BID PRN constipation Supportive measures: Continue GI and DVT prophylaxis Disposition: Pending improvement in clinical condition All questions answered time spent: > 35 min GIORGI DELEON MD Jan 14, 2025 12:33
[2025-01-14] MEDS ORDERED: IOHEXOL-350 75 ML VIAL IV ONE (13:19)
--- NOTE | 2025-01-14 21:35 | HMCSR ---
APPROVED REPORT EXAM: Two-dimensional and M-mode echocardiogram with Doppler and color Doppler. INDICATION ICD: recurrent syncope, r/o significant valvulopathy, stenosis 2D Dimensions RVDd2.3 cmLVEF(%)57.0 (>50%)LVED Vol(simp.)47.9 mL IVSd0.7 (0.7-1.1cm)FS(%)29 %LVES Vol(simp.)21.3 mL LVDd3.7 (3.8-5.6cm)LA (2D)2.6 (1.6-4.0cm)LVEF(%, simp.)56 % PWd1.1 (0.7-1.1cm)Ao Root(2D)2.6 (2.0-3.7cm)LA ESV INDEX (BP)18.20 mL/m2 LVDs2.6 (2.5-4.0cm)LVOT diam1.8 (1.8-2.4cm) IVC diam0.9 cm Deformation Strain Apical 4-17.6 % Apical 2-17.6 % Apical 3-18.5 % Global Strain-17.9 % Aortic Valve AoV Vmax1.0 m/[place] Peak GR4.2 mmHgLVOT Vmax1.0 m/s AoV VTI0.2 mAo Mean GR2.6 mmHgLVOT VTI0.17 m GABINO (VMAX)2.45 cm2AVA (VTI) 2.2 cm2 Mitral Valve MV E Vmax54.6 cm/sDECEL Ylmy853 ms MV A Vmax90.0 cm/sP 1/2 T54 ms E/A ratio0.6MVA (PHT)4.1 cm2 TDI E/E' Vcnnrf03.7E/E' Lateral7.1 Medial E' Peak V4.29 cm/sLateral E' Peak V7.68 cm/s Tricuspid Valve TR Vmax2.0 m/sRVSP16.7 mmHg TR Peak GR16.7 mmHg Left Ventricle The left ventricle is normal size. There is normal LV segmental wall motion. There is normal left ivette tricular wall thickness. LVEF is 55-60%. The left ventricular diastolic function is normal. Right Ventricle The right ventricle is normal size. Right ventricular systolic function is mildly reduced. Atria The left atrium size is normal. The right atrium size is normal. Aortic Valve The aortic valve is mildly sclerotic, but opens normally. No aortic regurgitation is present. There i s no aortic valvular stenosis. Mitral Valve The mitral valve is normal in structure. There is no mitral valve regurgitation noted. There is no mi tral valve stenosis. Tricuspid Valve The tricuspid valve is normal in structure. There is trivial tricuspid valve regurgitation noted. Pulmonic Valve The pulmonary valve is normal in structure. There is no pulmonic valvular regurgitation. Great Vessels The aortic root is normal in size. The IVC is normal in size and collapses >50% with inspiration. Pericardium There is no pericardial effusion. Conclusion The left ventricle is normal size. There is normal left ventricular wall thickness. There is normal LV segmental wall motion. LVEF is 55-60%. The left ventricular diastolic function is normal. The aortic valve is mildly sclerotic, but opens normally. There is no aortic valvular stenosis. There is no mitral valve regurgitation noted. There is no pericardial effusion.
[2025-01-15] VITALS (21 sets, daily range): BP systolic 81–134; BP diastolic 52–80; PULSE 45–160; RESP 16–20; TEMP 97.8–98.2; O2SAT 95–98
[2025-01-15 05:25] LABS: ASPARTATE AMINOTRANSFERASE 23.0 U/L (10-37); CREATININE 0.6 mg/dL (0.5-1.0); GLOMERULAR FILTR. RATE CALC 94.0 mL/min (>90); GLUCOSE,RANDOM 91.0 mg/dL (70-105); SODIUM SERUM 141.0 mmol/L (136-145); TOTAL PROTEIN, SERUM 6.3 g/dL (6.0-8.3); UREA NITROGEN, BLOOD 6.0 mg/dL (7-18)
[2025-01-15 05:39] LABS: NUCLEATED RED BLOOD CELLS 0.0 % (0.0-0.19); PLATELET COUNT (AUTO) 245.0 K/uL (130-400); RED BLOOD CELL COUNT(AUTO) 4.15 MIL/uL (4.00-5.50); RED CELL DISTRIBUTION WIDTH 13.4 % (11.0-15.5); WHITE BLOOD COUNT (AUTO) 7.3 K/uL (4.8-10.8)
[2025-01-15] MEDS: PoTASSium chloRIDE 20MEQ ER 20 MEQ ERTAB PO PRN (06:09)
--- NOTE | 2025-01-15 08:08 | PN ---
[facility] CARDIOLOGY PROGRESS NOTE Date Patient Seen: Jan 15, 2025 Time of Visit: 08:04 Interval History: [BP improved with midodrine and IVFs ] Physical Examination: GENERAL: [No acute distress.] HEAD: [Normal with no signs of head trauma.] EYES: [PERRLA, EOMI, conjunctiva and sclera normal.] ENT: [Hearing grossly intact, normal oropharynx.] NECK: [Supple without JVD. There is no tenderness, lymphadenopathy, or masses. No thyromegaly. Normal carotid upstrokes without bruits.] LUNGS: [Clear breath sounds bilaterally. There are right basilar rales one third of the way up the chest. No wheezes, or rhonchi.] HEART: [Normal rate and rhythm. Normal S1 and S2 without mumurs, gallop or rub.] VASC: [Peripheral pulses +2 bilaterally.] ABD: [Bowel sounds normal, soft, nontender, no masses, no organomegaly. No audible bruits.] : [Not examined] LYMPH: [No lymphadenopathy noted.] EXT: [No clubbing, cyanosis or edema.] SKIN: [No rashes or lesions noted.] NEURO: [Awake, alert, and oriented x3. No focal sensory or strength deficits noted.] Laboratory: [ ] Hematology Labs: Test 01/15/25 05:33 01/14/25 04:06 Range/Units White Blood Count 7.3 4.8-10.8 K/uL Red Blood Count 4.15 4.00-5.50 MIL/uL Hemoglobin 12.6 12.0-16.0 g/dL Hematocrit 37.6 36-48 % Mean Corpuscular Volume 90.6 79-99 fL Mean Corpuscular Hemoglobin 30.4 27.0-33.0 pg Mean Corpuscular Hemoglobin Concent 33.5 32.0-36.0 g/dL Red Cell Distribution Width 13.4 11.0-15.5 % Platelet Count 245 130-400 K/uL Mean Platelet Volume 9.1 7.5-10.5 fL Nucleated Red Blood Cells 0.0 0.0-0.19 % Immature Granulocyte % (Auto) 0.5 0-1 % Neutrophils (%) (Auto) 68.5 40.0-77.0 % Lymphocytes (%) (Auto) 17.5 L 21.0-51.0 % Monocytes (%) (Auto) 9.4 3.0-13.0 % Eosinophils (%) (Auto) 3.8 0.0-8.0 % Basophils (%) (Auto) 0.3 0.0-5.0 % Neutrophils # (Auto) 4.5 1.8-7.7 K/uL Lymphocytes # (Auto) 1.2 1.0-4.8 K/uL Monocytes # (Auto) 0.6 0.1-1.0 K/uL Eosinophils # (Auto) 0.25 0.00-0.70 K/uL Basophils # (Auto) 0.02 0.00-0.20 K/uL Absolute Immature Granulocyte (auto 0.03 0-1 K/uL Chemistry Labs: Test 01/15/25 04:27 01/13/25 14:43 01/13/25 14:34 Range/Units Sodium Level 141 136-145 mmol/L Potassium Level 3.6 3.5-5.1 mmol/L Chloride Level 106 101-111 mmol/L Carbon Dioxide Level 27 21-32 mmol/L Blood Urea Nitrogen 6 L 7-18 mg/dL Creatinine 0.6 0.5-1.0 mg/dL Glomerular Filtration Rate Calc 94 >90 mL/min Random Glucose 91 70-105 mg/dL Total Calcium 8.8 8.5-10.1 mg/dL Magnesium Level 1.80 1.80-2.40 mg/dL Total Bilirubin 0.1 L 0.2-1.0 mg/dL Aspartate Amino Transf (AST/SGOT) 23 10-37 U/L Alanine Aminotransferase (ALT/SGPT) 15 12-78 U/L Alkaline Phosphatase 192 H 50-136 U/L Total Protein 6.3 6.0-8.3 g/dL Albumin 2.9 L 3.5-5.0 g/dL Free Thyroxine (T4) Direct 1.04 0.76-1.46 ng/dL Free Triiodothyronine (T3) pg/mL 2.87 2.18-3.98 pg/mL Lactate Dehydrogenase 168 81-234 U/L Total Creatine Kinase 22 21-232 U/L C-Reactive Protein, Quantitative 3.10 H 0.5-3.0 mg/L Vitamin B12 Level 1027 H 193-986 pg/mL Folic Acid (LAB) 1.20 L 2-20 ng/mL Procalcitonin < 0.05 L 0.05-0.5 ng/mL Thyroid Stimulating Hormone (TSH) 0.15 L 0.36-3.74 uIU/mL Coagulation Labs: Test 01/13/25 14:34 Range/Units Prothrombin Time 10.8 9.6-11.6 SEC Prothromb Time International Ratio 1.02 0.85-1.15 Activated Partial Thromboplast Time 24.7 L 26.3-35.5 SEC Diagnostics / Radiology: [Copy/Paste Echos/Imaging Report here] Impression and Plan: [#Orthostatic hypotension -IVFs -pending AM cortisol - UA is normal -F/u 2d echo is normal LVEF, no valvular pathology - carotid US: There are calcified plaques in the right bulb and common carotid, proximal internal, and external carotid arteries causing about 20% to 30% diameter stenosis. There are calcified plaques in the left bulb, common carotid, and proximal internal carotid arteries about 20% to 30% diameter stenosis. Bilateral ICA/CCA ratio is more than 2, suggesting 50% to 69% stenosis. --pending CTA carotid -Tele shows no events -apply compression socks -midodrine 2.5 mg qd #Hyperthyroid -methimazole started by Endocrinology, f/u thyroid US Adrianna Ray MD ] ADRIANNA RAY MD Jan 15, 2025 08:08
--- NOTE | 2025-01-15 09:05 | EKG ---
[facility] Test Date: 2025-01-15 Test Time: 09:00:36 Pat Name: ROBERT KING Department: [facility] Room: 202 1 Gender: F Android Ui Developer: [id number] : 1950 Requested By: GIORGI DELEON Order Number: [id number] Reading MD: Darrick Mark Measurements Intervals Lang[place] Rate: 104 P: 84 MN: 154 QRS: 50 QRSD: 83 T: 60 QT: 349 QTc: 458 Interpretive Statements Sinus tachycardia Atrial premature complex Nonspecific repol abnormality, diffuse leads Compared to ECG 01/15/2025 08:59:49 Early repolarization now present Electronically Signed On 01-15-2025 20:28:05 CDT by Darrick Mark Please click the below link to view image of tracing.
--- NOTE | 2025-01-15 13:22 | PN ---
[facility] PROGRESS NOTE Date of Service: Jan 15, 2025 Time of Service: 13:20 SUBJECTIVE: [ ] 01/14 patient is seen and examined at bedside, case discussed with the RN, no acute events overnight, blood pressure 125/62, afebrile, saturating normal on room air, patient alert, following commands. Ultrasound carotid artery showing mild intimal thickening bilateral carotid arteries and their branches, plaques as described, bilateral ICA/CCA ratio is more than two, suggesting 50 to 69% stenosis. Recommended CT/MR angiogram. Discussed with the patient. CT angio of the neck has been requested, we will follow. Cardiology input noted and appreciated, monitor orthostatic hypotension, continue IV fluids, echocardiogram, continue compression stockings, continue midodrine 2.5 mg p.o. daily. Follow a.m. cortisol, follow endocrinology input and recommendation. Discussed with the patient. 01/15 patient remains admitted to the PCU, alert oriented x3, no acute events overnight per discussion with the RN. Mildly tachycardic earlier this morning, 12 lead EKG reviewed, atrial tachycardia, heart rate of 104. Echocardiogram showing LVEF 55-60%, normal left ventricular wall motion. CT angio of the neck was done, pending report. Pending thyroid ultrasound report. Discussed with the patient, all questions answered. REVIEW OF SYSTEMS CONSTITUTIONAL: Denies fevers, chills, or night sweats. Reports having decreased appetite NEUROLOGICAL: Denies headache, amaurosis fugax, motor weakness, sensory deficit, vertigo/spinning sensation, gait abnormalities, or tremors. ENT: No hearing loss, otalgia, otorrhea, rhinitis, rhinorrhea, hoarseness, or sore throat. CARDIOVASCULAR: reports having recurrent syncopal episodes ongoing for the past one and a half month. PULMONARY: Denies any shortness of breath, cough, phlegm/sputum, hemoptysis, pleuritic chest pain. SLEEP: Denies morning headaches, daytime somnolence or napping. Denies difficulty falling asleep, staying asleep, waking from sleep. Denies knowledge of snoring. GASTROINTESTINAL: Denies any type of dysphagia to either liquids or solids. Denies nausea, vomiting, pyrosis, early satiety, abdominal pain, diarrhea, constipation, or changes in stool consistency or caliber. Denies coffee-ground emesis, hematemesis, hematochezia, or melanotic stools. GENITOURINARY: Denies frequency, urgency, nocturia, hematuria or incontinence (Storage/Irritative symptoms.) Low urinary stream, straining to void, urinary intermittency or hesitancy, splitting of the voiding stream, terminal dribbling. ENDOCRINOLOGIC: Denies polyuria, polydipsia, polyphagia or heat/cold intolerances. HEMATOLOGIC: Denies thrombophilia/previous clots, or coagulopathy/bleeding disorders. ONCOLOGIC: Denies personal history of malignancy. DERMATOLOGIC: Denies rashes or pruritus. PSYCHIATRIC: Denies any suicidal or homicidal ideation. Denies hallucinations. PHYSICAL EXAM GENERAL APPEARANCE: The patient is awake, alert, appears frail and elderly NEUROLOGICAL: Cranial nerves II-XII grossly intact. Motor is 5/5 in bilateral upper and lower extremities proximal to distal. No sensory deficits. HEENT: Face is symmetric. Pupils are equal and reactive. Extraocular movements are intact. NECK: Supple. No JVD. No thyromegaly. No submental, submandibular, pre- /postauricular, occipital or supraclavicular lymphadenopathy. CHEST: Normal chest expansion. No Telemetry. LUNGS: Absence of any rales, rhonchi or any wheezing. CARDIOVASCULAR: Regular. S1 and S2 normal. No appreciable rubs, murmurs or gallops. ABDOMEN: Soft, nontender, and nondistended. There is no rebound, voluntary guarding, or rigidity. : Deferred. No Nixon. EXTREMITIES: Non-edematous and not cyanotic. No clubbing. Good capillary refill. SKIN: Open wound noted to the right elbow with skin tear, multiple abrasions noted of the upper and lower extremity Vital Signs (last 8hr) Date Time Temp Pulse Resp B/P (MAP) Pulse Ox O2 Delivery O2 Flow Rate FiO2 01/15/25 12:01 100 20 01/15/25 11:36 126 18 128/71 99 Room Air 01/15/25 11:33 121 18 131/80 98 Room Air 01/15/25 11:30 98.1 127 18 134/80 99 Room Air 01/15/25 07:16 139 16 81/52 93 Room Air 01/15/25 07:13 116 16 122/62 98 Room Air 01/15/25 07:10 97.9 103 16 113/69 97 Room Air 01/15/25 07:00 98 Room Air* 0 21 LABS: Laboratory: Test 01/15/25 05:33 01/15/25 04:27 01/14/25 10:52 01/14/25 07:10 Range/Units White Blood Count 7.3 4.8-10.8 K/uL Red Blood Count 4.15 4.00-5.50 MIL/uL Hemoglobin 12.6 12.0-16.0 g/dL Hematocrit 37.6 36-48 % Mean Corpuscular Volume 90.6 79-99 fL Mean Corpuscular Hemoglobin 30.4 27.0-33.0 pg Mean Corpuscular Hemoglobin Concent 33.5 32.0-36.0 g/dL Red Cell Distribution Width 13.4 11.0-15.5 % Platelet Count 245 130-400 K/uL Mean Platelet Volume 9.1 7.5-10.5 fL Nucleated Red Blood Cells 0.0 0.0-0.19 % Sodium Level 141 136-145 mmol/L Potassium Level 3.6 3.5-5.1 mmol/L Chloride Level 106 101-111 mmol/L Carbon Dioxide Level 27 21-32 mmol/L Blood Urea Nitrogen 6 L 7-18 mg/dL Creatinine 0.6 0.5-1.0 mg/dL Glomerular Filtration Rate Calc 94 >90 mL/min Random Glucose 91 70-105 mg/dL Total Calcium 8.8 8.5-10.1 mg/dL Magnesium Level 1.80 1.80-2.40 mg/dL Total Bilirubin 0.1 L 0.2-1.0 mg/dL Aspartate Amino Transf (AST/SGOT) 23 10-37 U/L Alanine Aminotransferase (ALT/SGPT) 15 12-78 U/L Alkaline Phosphatase 192 H 50-136 U/L Total Protein 6.3 6.0-8.3 g/dL Albumin 2.9 L 3.5-5.0 g/dL Urine Color LIGHT-YELLOW YELLOW Urine Appearance CLEAR CLEAR Urine pH 7.0 5.0-8.0 Urine Specific Hammon 1.009 1.001-1.031 Urine Protein NEGATIVE NEGATIVE mg/dL Urine Glucose (UA) NEGATIVE NEGATIVE mg/dL Urine Ketones NEGATIVE NEGATIVE mg/dL Urine Occult Blood NEGATIVE NEGATIVE Urine Nitrate NEGATIVE NEGATIVE Urine Bilirubin NEGATIVE NEGATIVE mg/dL Urine Urobilinogen 0.2 0.2-1.0 mg/dL Urine Leukocyte Esterase NEGATIVE NEGATIVE Traci/uL Cortisol AM Sample 21.8 H 6.2-19.4 ug/dL Test 01/14/25 04:06 01/13/25 14:43 01/13/25 14:34 Range/Units Immature Granulocyte % (Auto) 0.5 0-1 % Neutrophils (%) (Auto) 68.5 40.0-77.0 % Lymphocytes (%) (Auto) 17.5 L 21.0-51.0 % Monocytes (%) (Auto) 9.4 3.0-13.0 % Eosinophils (%) (Auto) 3.8 0.0-8.0 % Basophils (%) (Auto) 0.3 0.0-5.0 % Neutrophils # (Auto) 4.5 1.8-7.7 K/uL Lymphocytes # (Auto) 1.2 1.0-4.8 K/uL Monocytes # (Auto) 0.6 0.1-1.0 K/uL Eosinophils # (Auto) 0.25 0.00-0.70 K/uL Basophils # (Auto) 0.02 0.00-0.20 K/uL Absolute Immature Granulocyte (auto 0.03 0-1 K/uL Free Thyroxine (T4) Direct 1.04 0.76-1.46 ng/dL Free Triiodothyronine (T3) pg/mL 2.87 2.18-3.98 pg/mL Prothrombin Time 10.8 9.6-11.6 SEC Prothromb Time International Ratio 1.02 0.85-1.15 Activated Partial Thromboplast Time 24.7 L 26.3-35.5 SEC Lactate Dehydrogenase 168 81-234 U/L Total Creatine Kinase 22 21-232 U/L C-Reactive Protein, Quantitative 3.10 H 0.5-3.0 mg/L Vitamin B12 Level 1027 H 193-986 pg/mL Folic Acid (LAB) 1.20 L 2-20 ng/mL Procalcitonin < 0.05 L 0.05-0.5 ng/mL Thyroid Stimulating Hormone (TSH) 0.15 L 0.36-3.74 uIU/mL Current Medications Medications (Trade) Dose Ordered Sig/Garry Route PRN Reason Start Time Stop Time Status Last Admin Dose Admin Acetaminophen (TYLenol 325MG TAB) 650 mg Q6H PRN PO MILD PAIN (1-3) 01/13/25 14:30 02/12/25 14:29 Albuterol (DUOneb) 1 udvial Q6H PRN IH SHORTNESS OF BREATH 01/13/25 14:30 01/14/25 03:42 DC Albuterol Sulfate (Proventil 0.083% 2.5mg/3ml) 2.5 mg Q6H PRN IH SHORTNESS OF BREATH 01/14/25 04:00 02/13/25 03:59 Artificial Tears (Artificial Tears) TID OP 01/13/25 21:00 02/12/25 20:59 01/15/25 08:52 1 DROP Atorvastatin Calcium (LIPItor 40MG) 40 mg HS PO 01/13/25 21:00 02/12/25 20:59 01/14/25 21:07 40 MG Calcium Carbonate (Oyster Shell Ca 500mg Tab) 500 mg DAILY PO 01/14/25 09:00 02/13/25 08:59 01/15/25 08:40 500 MG Clonazepam (clonazePAM 0.5 mg) 0.5 mg BID PRN PO anxiety 01/13/25 14:30 02/12/25 14:29 Diphenhydramine HCl (BENAdryl CAP) 25 mg HS PRN PO ITCHING 01/13/25 19:30 02/12/25 19:29 Folic Acid (FolVITE 5 MG/ML VIAL) 1 mg Q24H IV 01/13/25 16:30 01/18/25 16:30 01/14/25 16:59 1 MG Home Med (Home Medication) DAILY PO 01/14/25 09:00 02/13/25 08:59 01/15/25 08:53 1 EACH Hydralazine HCl (APRESOLine 20MG INJ) 10 mg Q6H PRN IV ADMINISTER FOR SBP > 180 01/13/25 17:30 02/12/25 17:29 Ipratropium Condon (AtrovENT UD) 0.5 mg [id number] IH 01/14/25 06:00 02/13/25 05:59 01/15/25 12:01 0.5 MG Lactic Acid (Lachydrin 226gm Lotion) 1 GRAM DAILY TP 01/14/25 09:00 02/13/25 08:59 01/15/25 08:54 1 GM Lactobacillus Rhamnosus ([facility]) 1 each DAILY PO 01/14/25 09:00 02/13/25 08:59 01/15/25 08:40 1 EACH Magnesium Sulfate 50 ml @ 0 mls/hr PROTOCOL IV 01/13/25 15:30 01/15/25 08:39 DC 01/15/25 06:08 25 MLS/HR Magnesium Sulfate 50 ml @ 0 mls/hr PROTOCOL IV 01/15/25 09:00 02/14/25 08:59 Melatonin (Melatonin) 5 mg HS PO 01/13/25 21:00 02/12/25 20:59 01/14/25 21:07 5 MG Memantine (NAmenDA 5 MG TAB) 5 mg DAILY PO 01/14/25 09:00 02/13/25 08:59 01/15/25 08:41 5 MG Methimazole (tapaZOLE) 5 mg DAILY PO 01/15/25 09:00 02/14/25 08:59 01/15/25 08:41 5 MG Methimazole (tapaZOLE) 10 mg DAILY PO 01/15/25 09:00 01/14/25 12:24 DC Midodrine (PROAMatine 5 MG TABLET) 2.5 mg DAILY PO 01/14/25 09:00 02/13/25 08:59 01/15/25 08:41 2.5 MG Midodrine (PROAMatine 5 MG TABLET) 5 mg TID PRN PO for BP less than 90/60 01/13/25 16:00 02/12/25 15:59 Montelukast Sodium (SinguLAIR) 10 mg HS PO 01/13/25 21:00 02/12/25 20:59 01/14/25 21:08 10 MG Neomycin/ Polymyxin/ Bacitracin (Triple Antibiotic Ointment) 1 appl DAILY TP 01/14/25 09:00 02/13/25 08:59 01/15/25 08:41 1 APPL Ondansetron HCl (zoFRAN 4MG INJ) 4 mg Q6H PRN IVP NAUSEA/VOMITING 01/13/25 14:30 02/12/25 14:29 Polyethylene Glycol (MIRalax 3350 17 GM POWD.PACK) 17 gm DAILY PRN PO constipation 01/13/25 14:30 02/12/25 14:29 Potassium Chloride 100 ml @ 100 mls/hr AD PRN IV POTASSIUM PROTOCOL 01/13/25 15:30 02/12/25 15:29 Potassium Chloride (K-Dur/Klor-Con 20meq) 20 meq AD PRN PO POTASSIUM PROTOCOL 01/13/25 15:30 02/12/25 15:29 01/15/25 11:34 20 MEQ Potassium Chloride (KCl 10% Elixir 20meq/15ml) 20 meq AD PRN PO POTASSIUM PROTOCOL 01/13/25 15:30 02/12/25 15:29 Sodium Chloride 1,000 ml @ 50 mls/hr Q20H IV 01/13/25 14:30 02/12/25 14:29 01/15/25 06:06 50 MLS/HR Sucralfate (Carafate) 1 gm HS PO 01/13/25 21:00 02/12/25 20:59 01/14/25 21:08 1 GM Tiotropium Condon (Spiriva) 18 mcg DAILY IH 01/14/25 09:00 01/13/25 15:57 DC Trazodone HCl (DesyREL/OlepTRO) 50 mg HS PO 01/13/25 21:00 02/12/25 20:59 01/14/25 21:08 50 MG Trazodone HCl (DesyREL/OlepTRO) 75 mg HS PO 01/13/25 21:00 01/13/25 14:58 DC Venlafaxine HCl (EffEXOR 75 MG TAB) 75 mg DAILY PO 01/14/25 09:00 01/13/25 19:46 DC Venlafaxine HCl (EffEXOR 75 MG TAB) 150 mg DAILY PO 01/14/25 09:00 02/13/25 08:59 01/15/25 08:40 150 MG DIAGNOSTICS / RADIOLOGY: [ ] ASSESSMENT: Orthostatic hypotension, POA Recurrent syncopal episodes with fall, POA Frailty/debility, POA History of orthostasis, POA History of COPD, POA History of anxiety disorder/ Depression, POA History of mild dementia, POA Hyperlipidemia, POA History of insomnia, POA PLAN: NEURO: Minimize central acting medications as possible. Fall Precautions. Well lighted room through the day and minimize interruptions through the night to prevent acute delirium. PULMONARY: Supplemental 02 as needed BiPAP as necessary, for respiratory distress Titrate Fio2 to keep Spo2 > or = 90% DuoNebs and CPT as needed IS hourly while awake for pulmonary hygiene prn Out of bed to chair as tolerated Maintain aspiration precautions at all times CARDIOVASCULAR: Follow hemodynamics. Vital signs per facility protocol GI & NUTRITION: Continue nutritional support Aspirations precautions Prokinetic agents and laxatives as needed KIDNEYS & ELECTROLYTES: Strict monitoring of intake and output Daily weights Avoid nephrotoxic agents Monitor electrolytes and replace as needed Goal urine output of 30mL/hr or 0.5mL/kg/hr Medications to be dosed according to renal function. Avoid contrast if possible ENDOCRINE: Maintain blood glucose between 100-180 at all times. Insulin sliding scale for blood glucose management Hypoglycemia and hyperglycemia protocol in place INFECTIOUS DISEASE: Trend temperature, WBC and procalcitonin level Follow cultures, deescalate antibiotics as soon as possible. Panculture if new onset fever HEMATOLOGY & COAGULATION: Monitor H&H. Keep Hgb > 7 Transfuse 1 unit of PRBC for Hgb < 7 Transfuse 1 pack of platelets of platelets < 20, 000 Watch for any signs and symptoms of bleeding SKIN: Pressure ulcer prevention per facility protocol Specialty mattress as needed ORTHO/REHAB Continue PT/OT PRN: MEDICATIONS Tylenol 650 mg po every 4 hrs for fever zofran 4 mg IV every 6 hrs for n/v Hydralazine 5 mg IV every 4 hrs systolic pressure > 160 bowel regiment: lactulose 20 gm PO BID PRN constipation Supportive measures: Continue GI and DVT prophylaxis Disposition: Pending improvement in clinical condition All questions answered time spent: > 35 min GIORGI DELEON MD Jan 15, 2025 13:22
--- NOTE | 2025-01-15 14:15 | HMCIMG ---
EXAM: CTA Head and Neck with and without Intravenous Contrast. CLINICAL HISTORY: bilateral carotid artery disease TECHNIQUE: Axial CTA images of the head and neck performed with and without intravenous contrast in the arterial phase. Coronal and sagittal reformatted images were generated and reviewed. 3-D reformatted images generated on an independent workstation were also reviewed. NASCET criteria were used in assessment of stenosis. CONTRAST: Contrast injected without incident. COMPARISON: Doppler dated 01/13/25 FINDINGS: VASCULATURE: NECK: COMMON CAROTID ARTERIES Calcified plaques in the bilateral common carotid artery and carotid bulbs with 20-25% stenosis at the carotid bulbs. No significant stenosis. No dissection or occlusion. EXTERNAL CAROTID ARTERIES Patent. 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 No stenosis by NASCET criteria. No dissection or occlusion. VERTEBRAL ARTERIES No significant stenosis. No dissection or occlusion. HEAD: ANTERIOR CEREBRAL ARTERIES No significant stenosis. No occlusion. No aneurysm. MIDDLE CEREBRAL ARTERIES No significant stenosis. No occlusion. No aneurysm. POSTERIOR CEREBRAL ARTERIES No significant stenosis. No occlusion. No aneurysm. BASILAR ARTERY No significant stenosis. No occlusion. No aneurysm. OTHER: SOFT TISSUES No acute finding. Thyroid nodules may be further characterized with dedicated ultrasound imaging. BONES No acute osseous abnormality. IMPRESSION: 1. Calcified plaques in the bilateral common carotid artery and carotid bulbs with 20-25% stenosis at the carotid bulbs. 2. 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 /[place]
--- NOTE | 2025-01-15 20:46 | PN ---
endocrinology progress note Date of Service: Jan 15, 2025 subjective: she is started on methimazole 5 mg daily. TSH 0.15, t 3 free 2.87 and t 4 free 1.04 am cortisol is pending and rule out adrenal insufficiency. REVIEW OF SYSTEMS CONSTITUTIONAL: Denies fevers, chills, or night sweats. Reports having decreased appetite NEUROLOGICAL: Denies headache, amaurosis fugax, motor weakness, sensory deficit, vertigo/spinning sensation, gait abnormalities, or tremors. ENT: No hearing loss, otalgia, otorrhea, rhinitis, rhinorrhea, hoarseness, or sore throat. CARDIOVASCULAR: reports having recurrent syncopal episodes ongoing for the past one and a half month. PULMONARY: Denies any shortness of breath, cough, phlegm/sputum, hemoptysis, pleuritic chest pain. SLEEP: Denies morning headaches, daytime somnolence or napping. Denies difficulty falling asleep, staying asleep, waking from sleep. Denies knowledge of snoring. GASTROINTESTINAL: Denies any type of dysphagia to either liquids or solids. Denies nausea, vomiting, pyrosis, early satiety, abdominal pain, diarrhea, constipation, or changes in stool consistency or caliber. Denies coffee-ground emesis, hematemesis, hematochezia, or melanotic stools. GENITOURINARY: Denies frequency, urgency, nocturia, hematuria or incontinence (Storage/Irritative symptoms.) Low urinary stream, straining to void, urinary intermittency or hesitancy, splitting of the voiding stream, terminal dribbling. ENDOCRINOLOGIC: Denies polyuria, polydipsia, polyphagia or heat/cold intolerances. HEMATOLOGIC: Denies thrombophilia/previous clots, or coagulopathy/bleeding disorders. ONCOLOGIC: Denies personal history of malignancy. DERMATOLOGIC: Denies rashes or pruritus. PSYCHIATRIC: Denies any suicidal or homicidal ideation. Denies hallucinations. PAST MEDICAL HISTORY: History of COPD, dementia, anxiety, peripheral arterial disease, prior history of smoking PAST SURGICAL HISTORY: , history of surgery for abdominal aneurysm, cholecystectomy, prior history of lower extremity surgery for peripheral arterial disease PAST SOCIAL HISTORY: Patient is a resident of [facility] for the past five years, she has been using a wheelchair over the last one one due to recurrent syncopal episodes, needs assistance with IADLs FAMILY HISTORY: Denies major family history of medical conditions, denies any neurologic conditions Allergies: No known drug allergies Home medications: [facility] we will be sending list of medications to be reconciled and updated Coded Allergies: No Known Drug Allergies (Unverified Allergy, Unknown, 01/13/25) DIAGNOSTICS / RADIOLOGY: Chest x-ray and CT head without contrast is pending ASSESSMENT: thyrotoxicosis clinically and biochemically thyrotoxic despite mildly low tsh. reports heat intolerance, palpitations, 15 lbs weight loss. TSH 0.15, t 3 free 2.87 and t 4 free 1.04 am cortisol 21, so no evidence of adrenal insufficiency. Orthostatic hypotension, POA Recurrent syncopal episodes with fall, POA Frailty/debility, POA History of orthostasis, POA History of COPD, POA History of anxiety disorder/ Depression, POA History of mild dementia, POA Hyperlipidemia, POA History of insomnia, POA PLAN: continue methimazole 5 mg daily. follow on thyroid ultrasound. follow on TSI. repeat thyroid function in 1 month. Vitals/Labs Vital Signs Date Time Temp Pulse Resp B/P (MAP) Pulse Ox O2 Delivery O2 Flow Rate FiO2 01/15/25 18:18 93 20 01/15/25 14:56 104/60 94 Room Air 01/15/25 14:50 97.9 01/15/25 07:00 0 21 Laboratory Tests 01/15/25 04:27 01/15/25 05:33 Medications Current Medications Sodium Chloride 1,000 ml @ 50 mls/hr Q20H IV Last administered on 01/15/25at 06:06; Start 01/13/25 at 14:30; Stop 02/12/25 at 14:29 Acetaminophen 650 mg Q6H PRN PO; Start 01/13/25 at 14:30; Stop 02/12/25 at 14:29 Ondansetron HCl 4 mg Q6H PRN IVP; Start 01/13/25 at 14:30; Stop 02/12/25 at 14:29 Montelukast Sodium 10 mg HS PO Last administered on 01/14/25at 21:08; Start 01/13/25 at 21:00; Stop 02/12/25 at 20:59 Trazodone HCl 75 mg HS PO; Start 01/13/25 at 21:00; Stop 01/13/25 at 14:58; Status DC Venlafaxine HCl 75 mg DAILY PO; Start 01/14/25 at 09:00; Stop 01/13/25 at 19:46; Status DC Atorvastatin Calcium 40 mg HS PO Last administered on 01/14/25at 21:07; Start 01/13/25 at 21:00; Stop 02/12/25 at 20:59 Clonazepam 0.5 mg BID PRN PO; Start 01/13/25 at 14:30; Stop 02/12/25 at 14:29 Albuterol 1 udvial Q6H PRN IH; Start 01/13/25 at 14:30; Stop 01/14/25 at 03:42; Status DC Memantine 5 mg DAILY PO Last administered on 01/15/25at 08:41; Start 01/14/25 at 09:00; Stop 02/13/25 at 08:59 Tiotropium Flint 18 mcg DAILY IH; Start 01/14/25 at 09:00; Stop 01/13/25 at 15:57; Status DC Polyethylene Glycol 17 gm DAILY PRN PO; Start 01/13/25 at 14:30; Stop 02/12/25 at 14:29 Sodium Chloride 500 ml @ 0 mls/hr ONCE ONCE IV Last administered on 01/13/25at 15:57; Start 01/13/25 at 15:30; Stop 01/13/25 at 15:56; Status DC Potassium Chloride 100 ml @ 100 mls/hr AD PRN IV; Start 01/13/25 at 15:30; Stop 02/12/25 at 15:29 Potassium Chloride 20 meq AD PRN PO; Start 01/13/25 at 15:30; Stop 02/12/25 at 15:29 Potassium Chloride 20 meq AD PRN PO Last administered on 01/15/25at 11:34; Start 01/13/25 at 15:30; Stop 02/12/25 at 15:29 Magnesium Sulfate 50 ml @ 0 mls/hr PROTOCOL IV Last administered on 01/15/25at 06:08; Start 01/13/25 at 15:30; Stop 01/15/25 at 08:39; Status DC Midodrine 5 mg TID PRN PO; Start 01/13/25 at 16:00; Stop 02/12/25 at 15:59 Trazodone HCl 50 mg HS PO Last administered on 01/14/25at 21:08; Start 01/13/25 at 21:00; Stop 02/12/25 at 20:59 Folic Acid 1 mg Q24H IV Last administered on 01/15/25at 16:44; Start 01/13/25 at 16:30; Stop 01/18/25 at 16:30 Hydralazine HCl 10 mg Q6H PRN IV; Start 01/13/25 at 17:30; Stop 02/12/25 at 17:29 Lactic Acid 1 GRAM DAILY TP Last administered on 01/15/25at 08:54; Start 01/14/25 at 09:00; Stop 02/13/25 at 08:59 Neomycin/ Polymyxin/ Bacitracin 1 appl DAILY TP Last administered on 01/15/25at 08:41; Start 01/14/25 at 09:00; Stop 02/13/25 at 08:59 Sucralfate 1 gm HS PO Last administered on 01/14/25at 21:08; Start 01/13/25 at 21:00; Stop 02/12/25 at 20:59 Calcium Carbonate 500 mg DAILY PO Last administered on 01/15/25at 08:40; Start 01/14/25 at 09:00; Stop 02/13/25 at 08:59 Artificial Tears TID OP Last administered on 01/15/25at 14:01; Start 01/13/25 at 21:00; Stop 02/12/25 at 20:59 Home Med DAILY PO Last administered on 01/15/25at 08:53; Start 01/14/25 at 09:00; Stop 02/13/25 at 08:59 Diphenhydramine HCl 25 mg HS PRN PO; Start 01/13/25 at 19:30; Stop 02/12/25 at 19:29 Lactobacillus Rhamnosus 1 each DAILY PO Last administered on 01/15/25at 08:40; Start 01/14/25 at 09:00; Stop 02/13/25 at 08:59 Melatonin 5 mg HS PO Last administered on 01/14/25at 21:07; Start 01/13/25 at 21:00; Stop 02/12/25 at 20:59 Venlafaxine HCl 150 mg DAILY PO Last administered on 01/15/25at 08:40; Start 01/14/25 at 09:00; Stop 02/13/25 at 08:59 Albuterol Sulfate 2.5 mg Q6H PRN IH; Start 01/14/25 at 04:00; Stop 02/13/25 at 03:59 Ipratropium Flint 0.5 mg [id number] IH Last administered on 01/15/25at 18:16; Start 01/14/25 at 06:00; Stop 02/13/25 at 05:59 Midodrine 2.5 mg DAILY PO Last administered on 01/15/25at 08:41; Start 01/14/25 at 09:00; Stop 02/13/25 at 08:59 Methimazole 10 mg DAILY PO; Start 01/15/25 at 09:00; Stop 01/14/25 at 12:24; Status DC Methimazole 5 mg DAILY PO Last administered on 01/15/25at 08:41; Start 01/15/25 at 09:00; Stop 02/14/25 at 08:59 Iohexol 75 ml STK-MED ONCE IV; Start 01/14/25 at 13:19; Stop 01/14/25 at 13:20; Status DC Potassium Chloride 100 ml @ 50 mls/hr ONCE ONCE IV Last administered on 01/15/25at 11:33; Start 01/15/25 at 09:00; Stop 01/15/25 at 10:59; Status DC Magnesium Sulfate 50 ml @ 0 mls/hr PROTOCOL IV; Start 01/15/25 at 09:00; Stop 02/14/25 at 08:59 PRISCILA ULRICH MD Jan 15, 2025 20:46
[2025-01-16] VITALS (20 sets, daily range): BP systolic 88–151; BP diastolic 51–89; PULSE 73–141; RESP 16–20; TEMP 97.9–98.6; O2SAT 95–98
[2025-01-16 05:07] LABS: CREATININE 0.5 mg/dL (0.5-1.0); GLOMERULAR FILTR. RATE CALC 98.0 mL/min (>90); GLUCOSE,RANDOM 98.0 mg/dL (70-105); SODIUM SERUM 141.0 mmol/L (136-145); UREA NITROGEN, BLOOD 8.0 mg/dL (7-18)
--- NOTE | 2025-01-16 07:04 | PN ---
[facility] CARDIOLOGY PROGRESS NOTE Date Patient Seen: Jan 16, 2025 Time of Visit: 06:59 Interval History: [@ 1999 Orthostatic +, increased midodrine 2.5 mg qd to q8h ] Physical Examination: GENERAL: [No acute distress.] HEAD: [Normal with no signs of head trauma.] EYES: [PERRLA, EOMI, conjunctiva and sclera normal.] ENT: [Hearing grossly intact, normal oropharynx.] NECK: [Supple without JVD. There is no tenderness, lymphadenopathy, or masses. No thyromegaly. Normal carotid upstrokes without bruits.] LUNGS: [Clear breath sounds bilaterally. There are right basilar rales one third of the way up the chest. No wheezes, or rhonchi.] HEART: [Normal rate and rhythm. Normal S1 and S2 without mumurs, gallop or rub.] VASC: [Peripheral pulses +2 bilaterally.] ABD: [Bowel sounds normal, soft, nontender, no masses, no organomegaly. No audible bruits.] : [Not examined] LYMPH: [No lymphadenopathy noted.] EXT: [No clubbing, cyanosis or edema.] SKIN: [No rashes or lesions noted.] NEURO: [Awake, alert, and oriented x3. No focal sensory or strength deficits noted.] Laboratory: [ ] Hematology Labs: Test 01/15/25 05:33 Range/Units White Blood Count 7.3 4.8-10.8 K/uL Red Blood Count 4.15 4.00-5.50 MIL/uL Hemoglobin 12.6 12.0-16.0 g/dL Hematocrit 37.6 36-48 % Mean Corpuscular Volume 90.6 79-99 fL Mean Corpuscular Hemoglobin 30.4 27.0-33.0 pg Mean Corpuscular Hemoglobin Concent 33.5 32.0-36.0 g/dL Red Cell Distribution Width 13.4 11.0-15.5 % Platelet Count 245 130-400 K/uL Mean Platelet Volume 9.1 7.5-10.5 fL Nucleated Red Blood Cells 0.0 0.0-0.19 % Chemistry Labs: Test 01/16/25 04:11 01/15/25 04:27 01/14/25 07:10 Range/Units Sodium Level 141 136-145 mmol/L Potassium Level 3.5 3.5-5.1 mmol/L Chloride Level 105 101-111 mmol/L Carbon Dioxide Level 29 21-32 mmol/L Blood Urea Nitrogen 8 7-18 mg/dL Creatinine 0.5 0.5-1.0 mg/dL Glomerular Filtration Rate Calc 98 >90 mL/min Random Glucose 98 70-105 mg/dL Total Calcium 8.5 8.5-10.1 mg/dL Magnesium Level 1.90 1.80-2.40 mg/dL Total Bilirubin 0.1 L 0.2-1.0 mg/dL Aspartate Amino Transf (AST/SGOT) 23 10-37 U/L Alanine Aminotransferase (ALT/SGPT) 15 12-78 U/L Alkaline Phosphatase 192 H 50-136 U/L Total Protein 6.3 6.0-8.3 g/dL Albumin 2.9 L 3.5-5.0 g/dL Cortisol AM Sample 21.8 H 6.2-19.4 ug/dL Diagnostics / Radiology: [Copy/Paste Echos/Imaging Report here] Impression and Plan: [#Orthostatic hypotension -IVFs -pending AM cortisol - UA is normal -F/u 2d echo is normal LVEF, no valvular pathology - carotid US: There are calcified plaques in the right bulb and common carotid, proximal internal, and external carotid arteries causing about 20% to 30% diameter stenosis. There are calcified plaques in the left bulb, common morales tid, and proximal internal carotid arteries about 20% to 30% diameter stenosis. Bilateral ICA/CCA ratio is more than 2, suggesting 50% to 69% stenosis. --CT head/neck: 1. Calcified plaques in the bilateral common carotid artery and carotid bulbs with 20-25% stenosis at the carotid bulbs. 2. 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 -Tele shows no events -apply compression socks -01/16 midodrine 2.5 mg qd increased to q8h -AM cortisol negative #Hyperthyroid -methimazole started by Endocrinology, f/u thyroid US Adrianna Ray MD ] ADRIANNA RAY MD Jan 16, 2025 07:04
--- NOTE | 2025-01-16 09:42 | PN ---
[facility] PROGRESS NOTE Date of Service: Jan 16, 2025 Time of Service: 09:40 SUBJECTIVE: [ ] 01/14 patient is seen and examined at bedside, case discussed with the RN, no acute events overnight, blood pressure 125/62, afebrile, saturating normal on room air, patient alert, following commands. Ultrasound carotid artery showing mild intimal thickening bilateral carotid arteries and their branches, plaques as described, bilateral ICA/CCA ratio is more than two, suggesting 50 to 69% stenosis. Recommended CT/MR angiogram. Discussed with the patient. CT angio of the neck has been requested, we will follow. Cardiology input noted and appreciated, monitor orthostatic hypotension, continue IV fluids, echocardiogram, continue compression stockings, continue midodrine 2.5 mg p.o. daily. Follow a.m. cortisol, follow endocrinology input and recommendation. Discussed with the patient. 01/15 patient remains admitted to the PCU, alert oriented x3, no acute events overnight per discussion with the RN. Mildly tachycardic earlier this morning, 12 lead EKG reviewed, atrial tachycardia, heart rate of 104. Echocardiogram showing LVEF 55-60%, normal left ventricular wall motion. CT angio of the neck was done, pending report. Pending thyroid ultrasound report. Discussed with the patient, all questions answered. 01/16 patient remains admitted to the PCU, awake, following commands, denies dizziness, no blurry vision, no chest pain, shortness shortness for breath, no nausea, no vomiting. 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 Cardiology input noted and appreciated, midodrine increased to 2.5 mg p.o. q.8 hours. Endocrinology input noted and appreciated, clinically and biochemically euthyroid toxic despite mildly low TSH, patient reporting heat intolerance, palpitations and 15 lb weight loss, a.m. cortisol is 21, no evidence of adrenal insufficiency, recommended to continue methimazole 5 mg p.o. daily, follow results of thyroid ultrasound. Repeat thyroid function testing one month. Discussed with the patient, in agreement. REVIEW OF SYSTEMS CONSTITUTIONAL: Denies fevers, chills, or night sweats. Reports having decreased appetite NEUROLOGICAL: Denies headache, amaurosis fugax, motor weakness, sensory deficit, vertigo/spinning sensation, gait abnormalities, or tremors. ENT: No hearing loss, otalgia, otorrhea, rhinitis, rhinorrhea, hoarseness, or sore throat. CARDIOVASCULAR: reports having recurrent syncopal episodes ongoing for the past one and a half month. PULMONARY: Denies any shortness of breath, cough, phlegm/sputum, hemoptysis, pleuritic chest pain. SLEEP: Denies morning headaches, daytime somnolence or napping. Denies difficulty falling asleep, staying asleep, waking from sleep. Denies knowledge of snoring. GASTROINTESTINAL: Denies any type of dysphagia to either liquids or solids. Denies nausea, vomiting, pyrosis, early satiety, abdominal pain, diarrhea, constipation, or changes in stool consistency or caliber. Denies coffee-ground emesis, hematemesis, hematochezia, or melanotic stools. GENITOURINARY: Denies frequency, urgency, nocturia, hematuria or incontinence (Storage/Irritative symptoms.) Low urinary stream, straining to void, urinary intermittency or hesitancy, splitting of the voiding stream, terminal dribbling. ENDOCRINOLOGIC: Denies polyuria, polydipsia, polyphagia or heat/cold intolerances. HEMATOLOGIC: Denies thrombophilia/previous clots, or coagulopathy/bleeding disorders. ONCOLOGIC: Denies personal history of malignancy. DERMATOLOGIC: Denies rashes or pruritus. PSYCHIATRIC: Denies any suicidal or homicidal ideation. Denies hallucinations. PHYSICAL EXAM GENERAL APPEARANCE: The patient is awake, alert, appears frail and elderly NEUROLOGICAL: Cranial nerves II-XII grossly intact. Motor is 5/5 in bilateral upper and lower extremities proximal to distal. No sensory deficits. HEENT: Face is symmetric. Pupils are equal and reactive. Extraocular movements are intact. NECK: Supple. No JVD. No thyromegaly. No submental, submandibular, pre- /postauricular, occipital or supraclavicular lymphadenopathy. CHEST: Normal chest expansion. No Telemetry. LUNGS: Absence of any rales, rhonchi or any wheezing. CARDIOVASCULAR: Regular. S1 and S2 normal. No appreciable rubs, murmurs or gallops. ABDOMEN: Soft, nontender, and nondistended. There is no rebound, voluntary guarding, or rigidity. : Deferred. No Nixon. EXTREMITIES: Non-edematous and not cyanotic. No clubbing. Good capillary refill. SKIN: Open wound noted to the right elbow with skin tear, multiple abrasions noted of the upper and lower extremity Vital Signs (last 8hr) Date Time Temp Pulse Resp B/P (MAP) Pulse Ox O2 Delivery O2 Flow Rate FiO2 01/16/25 08:26 97.9 91 16 122/71 96 Room Air 01/16/25 07:25 Room Air* 0 21 01/16/25 07:14 92 20 01/16/25 07:13 92 18 N/A Room Air 21 01/16/25 07:05 98 Room Air* 0 01/16/25 04:00 98.2 95 18 133/70 94 Room Air LABS: Laboratory: Test 01/16/25 04:11 01/15/25 05:33 01/15/25 04:27 01/14/25 10:52 Range/Units Sodium Level 141 136-145 mmol/L Potassium Level 3.5 3.5-5.1 mmol/L Chloride Level 105 101-111 mmol/L Carbon Dioxide Level 29 21-32 mmol/L Blood Urea Nitrogen 8 7-18 mg/dL Creatinine 0.5 0.5-1.0 mg/dL Glomerular Filtration Rate Calc 98 >90 mL/min Random Glucose 98 70-105 mg/dL Total Calcium 8.5 8.5-10.1 mg/dL Magnesium Level 1.90 1.80-2.40 mg/dL White Blood Count 7.3 4.8-10.8 K/uL Red Blood Count 4.15 4.00-5.50 MIL/uL Hemoglobin 12.6 12.0-16.0 g/dL Hematocrit 37.6 36-48 % Mean Corpuscular Volume 90.6 79-99 fL Mean Corpuscular Hemoglobin 30.4 27.0-33.0 pg Mean Corpuscular Hemoglobin Concent 33.5 32.0-36.0 g/dL Red Cell Distribution Width 13.4 11.0-15.5 % Platelet Count 245 130-400 K/uL Mean Platelet Volume 9.1 7.5-10.5 fL Nucleated Red Blood Cells 0.0 0.0-0.19 % Total Bilirubin 0.1 L 0.2-1.0 mg/dL Aspartate Amino Transf (AST/SGOT) 23 10-37 U/L Alanine Aminotransferase (ALT/SGPT) 15 12-78 U/L Alkaline Phosphatase 192 H 50-136 U/L Total Protein 6.3 6.0-8.3 g/dL Albumin 2.9 L 3.5-5.0 g/dL Urine Color LIGHT-YELLOW YELLOW Urine Appearance CLEAR CLEAR Urine pH 7.0 5.0-8.0 Urine Specific [place] 1.009 1.001-1.031 Urine Protein NEGATIVE NEGATIVE mg/dL Urine Glucose (UA) NEGATIVE NEGATIVE mg/dL Urine Ketones NEGATIVE NEGATIVE mg/dL Urine Occult Blood NEGATIVE NEGATIVE Urine Nitrate NEGATIVE NEGATIVE Urine Bilirubin NEGATIVE NEGATIVE mg/dL Urine Urobilinogen 0.2 0.2-1.0 mg/dL Urine Leukocyte Esterase NEGATIVE NEGATIVE Traci/uL Current Medications Medications (Trade) Dose Ordered Sig/Garry Route PRN Reason Start Time Stop Time Status Last Admin Dose Admin Acetaminophen (TYLenol 325MG TAB) 650 mg Q6H PRN PO MILD PAIN (1-3) 01/13/25 14:30 02/12/25 14:29 Albuterol (DUOneb) 1 udvial Q6H PRN IH SHORTNESS OF BREATH 01/13/25 14:30 01/14/25 03:42 DC Albuterol Sulfate (Proventil 0.083% 2.5mg/3ml) 2.5 mg Q6H PRN IH SHORTNESS OF BREATH 01/14/25 04:00 02/13/25 03:59 Artificial Tears (Artificial Tears) TID OP 01/13/25 21:00 02/12/25 20:59 01/16/25 09:33 1 DROP Atorvastatin Calcium (LIPItor 40MG) 40 mg HS PO 01/13/25 21:00 02/12/25 20:59 01/15/25 20:45 40 MG Calcium Carbonate (Oyster Shell Ca 500mg Tab) 500 mg DAILY PO 01/14/25 09:00 02/13/25 08:59 01/16/25 09:34 500 MG Clonazepam (clonazePAM 0.5 mg) 0.5 mg BID PRN PO anxiety 01/13/25 14:30 02/12/25 14:29 Diphenhydramine HCl (BENAdryl CAP) 25 mg HS PRN PO ITCHING 01/13/25 19:30 02/12/25 19:29 Folic Acid (FolVITE 5 MG/ML VIAL) 1 mg Q24H IV 01/13/25 16:30 01/18/25 16:30 01/15/25 16:44 1 MG Home Med (Home Medication) DAILY PO 01/14/25 09:00 02/13/25 08:59 01/16/25 09:33 1 EACH Hydralazine HCl (APRESOLine 20MG INJ) 10 mg Q6H PRN IV ADMINISTER FOR SBP > 180 01/13/25 17:30 02/12/25 17:29 Ipratropium [place] (AtrovENT UD) 0.5 mg [id number] IH 01/14/25 06:00 02/13/25 05:59 01/16/25 07:13 0.5 MG Lactic Acid (Lachydrin 226gm Lotion) 1 GRAM DAILY TP 01/14/25 09:00 02/13/25 08:59 01/16/25 09:34 1 GM Lactobacillus Rhamnosus ([facility] [employer]) 1 each DAILY PO 01/14/25 09:00 02/13/25 08:59 01/16/25 09:30 1 EACH Magnesium Sulfate 50 ml @ 0 mls/hr PROTOCOL IV 01/13/25 15:30 01/15/25 08:39 DC 01/15/25 06:08 25 MLS/HR Magnesium Sulfate 50 ml @ 0 mls/hr PROTOCOL IV 01/15/25 09:00 02/14/25 08:59 Melatonin (Melatonin) 5 mg HS PO 01/13/25 21:00 02/12/25 20:59 01/15/25 20:45 5 MG Memantine (NAmenDA 5 MG TAB) 5 mg DAILY PO 01/14/25 09:00 02/13/25 08:59 01/16/25 09:32 5 MG Methimazole (tapaZOLE) 5 mg DAILY PO 01/15/25 09:00 02/14/25 08:59 01/16/25 09:31 5 MG Methimazole (tapaZOLE) 10 mg DAILY PO 01/15/25 09:00 01/14/25 12:24 DC Midodrine (PROAMatine 5 MG TABLET) 2.5 mg DAILY PO 01/14/25 09:00 01/16/25 07:02 DC 01/15/25 08:41 2.5 MG Midodrine (PROAMatine 5 MG TABLET) 2.5 mg Q8H5 PO 01/16/25 07:00 02/13/25 08:59 01/16/25 09:31 2.5 MG Midodrine (PROAMatine 5 MG TABLET) 5 mg TID PRN PO for BP less than 90/60 01/13/25 16:00 02/12/25 15:59 Montelukast Sodium (SinguLAIR) 10 mg HS PO 01/13/25 21:00 02/12/25 20:59 01/15/25 20:45 10 MG Neomycin/ Polymyxin/ Bacitracin (Triple Antibiotic Ointment) 1 appl DAILY TP 01/14/25 09:00 02/13/25 08:59 01/16/25 09:30 1 APPL Ondansetron HCl (zoFRAN 4MG INJ) 4 mg Q6H PRN IVP NAUSEA/VOMITING 01/13/25 14:30 02/12/25 14:29 Polyethylene Glycol (MIRalax 3350 17 GM POWD.PACK) 17 gm DAILY PRN PO constipation 01/13/25 14:30 02/12/25 14:29 Potassium Chloride 100 ml @ 100 mls/hr AD PRN IV POTASSIUM PROTOCOL 01/13/25 15:30 02/12/25 15:29 Potassium Chloride (K-Dur/Klor-Con 20meq) 20 meq AD PRN PO POTASSIUM PROTOCOL 01/13/25 15:30 02/12/25 15:29 01/16/25 06:07 20 MEQ Potassium Chloride (KCl 10% Elixir 20meq/15ml) 20 meq AD PRN PO POTASSIUM PROTOCOL 01/13/25 15:30 02/12/25 15:29 Sodium Chloride 1,000 ml @ 50 mls/hr Q20H IV 01/13/25 14:30 02/12/25 14:29 01/16/25 02:03 50 MLS/HR Sucralfate (Carafate) 1 gm HS PO 01/13/25 21:00 02/12/25 20:59 01/15/25 20:45 1 GM Tiotropium [place] (Spiriva) 18 mcg DAILY IH 01/14/25 09:00 01/13/25 15:57 DC Trazodone HCl (DesyREL/OlepTRO) 50 mg HS PO 01/13/25 21:00 02/12/25 20:59 01/15/25 20:45 50 MG Trazodone HCl (DesyREL/OlepTRO) 75 mg HS PO 01/13/25 21:00 01/13/25 14:58 DC Venlafaxine HCl (EffEXOR 75 MG TAB) 75 mg DAILY PO 01/14/25 09:00 01/13/25 19:46 DC Venlafaxine HCl (EffEXOR 75 MG TAB) 150 mg DAILY PO 01/14/25 09:00 02/13/25 08:59 01/16/25 09:30 150 MG DIAGNOSTICS / RADIOLOGY: [ ] ASSESSMENT: Orthostatic hypotension, POA Recurrent syncopal episodes with fall, POA Frailty/debility, POA History of orthostasis, POA History of COPD, POA History of anxiety disorder/ Depression, POA History of mild dementia, POA Hyperlipidemia, POA History of insomnia, POA PLAN: Cardiology input noted and appreciated, midodrine increased to 2.5 mg p.o. q.8 hours. Endocrinology input noted and appreciated, clinically and biochemically euthyroid toxic despite mildly low TSH, patient reporting heat intolerance, palpitations and 15 lb weight loss, a.m. cortisol is 21, no evidence of adrenal insufficiency, recommended to continue methimazole 5 mg p.o. daily, follow results of thyroid ultrasound. Repeat thyroid function testing one month. Discussed with the patient, in agreement. NEURO: Minimize central acting medications as possible. Fall Precautions. Well lighted room through the day and minimize interruptions through the night to prevent acute delirium. PULMONARY: Supplemental 02 as needed BiPAP as necessary, for respiratory distress Titrate Fio2 to keep Spo2 > or = 90% DuoNebs and CPT as needed IS hourly while awake for pulmonary hygiene prn Out of bed to chair as tolerated Maintain aspiration precautions at all times CARDIOVASCULAR: Follow hemodynamics. Vital signs per facility protocol GI & NUTRITION: Continue nutritional support Aspirations precautions Prokinetic agents and laxatives as needed KIDNEYS & ELECTROLYTES: Strict monitoring of intake and output Daily weights Avoid nephrotoxic agents Monitor electrolytes and replace as needed Goal urine output of 30mL/hr or 0.5mL/kg/hr Medications to be dosed according to renal function. Avoid contrast if possible ENDOCRINE: Maintain blood glucose between 100-180 at all times. Insulin sliding scale for blood glucose management Hypoglycemia and hyperglycemia protocol in place INFECTIOUS DISEASE: Trend temperature, WBC and procalcitonin level Follow cultures, deescalate antibiotics as soon as possible. Panculture if new onset fever HEMATOLOGY & COAGULATION: Monitor H&H. Keep Hgb > 7 Transfuse 1 unit of PRBC for Hgb < 7 Transfuse 1 pack of platelets of platelets < 20, 000 Watch for any signs and symptoms of bleeding SKIN: Pressure ulcer prevention per facility protocol Specialty mattress as needed ORTHO/REHAB Continue PT/OT PRN: MEDICATIONS Tylenol 650 mg po every 4 hrs for fever zofran 4 mg IV every 6 hrs for n/v Hydralazine 5 mg IV every 4 hrs systolic pressure > 160 bowel regiment: lactulose 20 gm PO BID PRN constipation Supportive measures: Continue GI and DVT prophylaxis Disposition: Pending improvement in clinical condition All questions answered time spent: > 35 min GIORGI DELEON MD Jan 16, 2025 09:42
--- NOTE | 2025-01-16 14:00 | NUR ---
[facility] Follow-up: Patient re-assessed by wound healing team. Assessment and recommendations provided to primary nurse. Education provided. Addendum: 01/16/25 at 1512 by MIC FLOWER RN RN/ Amended: Links added.
--- NOTE | 2025-01-16 15:11 | CONS ---
CONSULTATION NOTE Date of Service: Jan 16, 2025 Reason for Consultation: [ Open Wound to Right Elbow] Requesting Physician: [ Dr. Villarreal] HISTORY OF PRESENT ILLNESS: 74-year-old female with underlying history of orthostasis, anxiety, COPD who presented to the ER for further evaluation of syncope and frequent falls. Patient noted to have significant orthostatic changes with systolic blood pressure dropping from 137 mmHg to 94 mmHg. She has been receiving IV fluids in the nursing facility as well. Patient was admitted for further management of orthostatic hypotension. Patient reports with her recent fall, she hit the back of her head and sustained an open wound to the right elbow. Patient is being evaluated in room 202 for wound care consult. REVIEW OF SYSTEMS CONSTITUTIONAL: Denies fever, chills, or fatigue. HEAD/FACE: No signs of trauma. EENT: Denies eye pain, blurred vision, double vision, or light sensitivity. RESPIRATORY: Denies shortness of breath, cough, wheezing CARDIOVASCULAR: Denies chest pain, palpitation, syncope GASTROINTESTINAL/ABDOMINAL: Denies abdominal pain, constipation, diarrhea, nausea or vomiting GENITOURINARY: Denies dysuria or hematuria. MUSCULOSKELETAL: Denies joint pain, tenderness, or trauma. INTEGUMENTARY: Denies rash or itchiness NEUROLOGICAL/PSYCH: Denies anxiety, depression, heat or cold intolerance. PAST MEDICAL HISTORY: History of COPD, dementia, anxiety, peripheral arterial disease, prior history of smoking PAST SURGICAL HISTORY: , history of surgery for abdominal aneurysm, cholecystectomy, prior history of lower extremity surgery for peripheral arterial disease PAST SOCIAL HISTORY: Patient is a resident of [facility] for the past five years, she has been using a wheelchair over the last one one due to recurrent syncopal episodes, needs assistance with IADLs FAMILY HISTORY: Denies major family history of medical conditions, denies any neurologic conditions Coded Allergies: No Known Drug Allergies (Unverified Allergy, Unknown, 01/13/25) PHYSICAL EXAM EYES: Anicteric. Pupils equal and reactive. HENT: No oral thrush seen, moist Oral mucosa NECK: Supple, no JVD or thyromegaly. LUNGS: Good air entry. No rales, no rhonchi. CARDIOVASCULAR: S1, S2 regular. No murmur heard. ABDOMEN: Soft, non tender, bowel sounds present, no organomegaly CENTRAL NERVOUS SYSTEM: Awake, alert, oriented x 3. No focal deficits. SKIN: Open wound with granulation and scab noted to right elbow, left hand noted with scab to hand, no periwound erythema noted, no drainage noted LYMPHATICS: No peripheral lymphadenopathy MUSCULOSKELETAL: No joint swelling, erythema or tenderness. EXTREMITIES: No cyanosis or clubbing BACK: No deformity, no pressure ulcer. GENITOURINARY: No dysuria or hematuria Vital Sign (Last 24 Hours) 01/16/25 01/16/25 01/16/25 01/16/25 07:25 11:01 12:30 12:36 Temp 98.1 Pulse 128 Resp 16 B/P (MAP) 101/58 Pulse Ox 96 O2 Delivery Room Air O2 Flow Rate 0 FiO2 21 Intake & Output (last 24hrs) 01/15/25 01/15/25 01/16/25 15:00 23:00 07:00 Intake Total 480 ml 240 ml Output Total 450 ml 500 ml Balance 480 ml -210 ml -500 ml LABS: Laboratory: Test 01/16/25 04:11 01/15/25 07:39 01/15/25 05:33 01/15/25 04:27 Range/Units Sodium Level 141 136-145 mmol/L Potassium Level 3.5 3.5-5.1 mmol/L Chloride Level 105 101-111 mmol/L Carbon Dioxide Level 29 21-32 mmol/L Blood Urea Nitrogen 8 7-18 mg/dL Creatinine 0.5 0.5-1.0 mg/dL Glomerular Filtration Rate Calc 98 >90 mL/min Random Glucose 98 70-105 mg/dL Total Calcium 8.5 8.5-10.1 mg/dL Magnesium Level 1.90 1.80-2.40 mg/dL Cortisol AM Sample 21.8 H 6.2-19.4 ug/dL White Blood Count 7.3 4.8-10.8 K/uL Red Blood Count 4.15 4.00-5.50 MIL/uL Hemoglobin 12.6 12.0-16.0 g/dL Hematocrit 37.6 36-48 % Mean Corpuscular Volume 90.6 79-99 fL Mean Corpuscular Hemoglobin 30.4 27.0-33.0 pg Mean Corpuscular Hemoglobin Concent 33.5 32.0-36.0 g/dL Red Cell Distribution Width 13.4 11.0-15.5 % Platelet Count 245 130-400 K/uL Mean Platelet Volume 9.1 7.5-10.5 fL Nucleated Red Blood Cells 0.0 0.0-0.19 % Total Bilirubin 0.1 L 0.2-1.0 mg/dL Aspartate Amino Transf (AST/SGOT) 23 10-37 U/L Alanine Aminotransferase (ALT/SGPT) 15 12-78 U/L Alkaline Phosphatase 192 H 50-136 U/L Total Protein 6.3 6.0-8.3 g/dL Albumin 2.9 L 3.5-5.0 g/dL PROBLEM LIST : Fall Unspecified open wound to right elbow Unspecified open wound to left hand PLAN: Wound care to Right elbow and left hand- apply BESS BID Keep wounds clean and dry Comorbidities per primary care team Further Management per hospital course. Thank You for the consult and allowing us to participate in the care of this patient. ATTESTATION BY PHYSICIAN I have seen and examined the patient. I reviewed the documentation, medical decision making, and treatment plan as noted by the mid-level provider above. I agree with the findings and plan of care. KATH LAKHANI MD, MICHELLE A NP Jan 16, 2025 15:11 KATH LAKHANI MD Jan 20, 2025 09:28
--- NOTE | 2025-01-16 18:02 | NUR ---
CM NOTE/HNR CM spoke to Maday with [facility]. States patient is reaccepted to facility once medically cleared for discharge.
--- NOTE | 2025-01-16 21:15 | HMCIMG ---
EXAMINATION: ULTRASOUND OF THE THYROID. CLINICAL HISTORY: Thyrotoxicosis. COMPARISON: CTA head and neck with contrast dated 01/14/2025. TECHNIQUE: Transverse and longitudinal images were obtained through both lobes and the isthmus of the thyroid. FINDINGS: The thyroid gland is normal in caliber with heterogenous tissue echotexture. The right thyroid lobe measures 4.4 x 2.4 x 1.3 cm and the left thyroid lobe measures 5.0 x 1.6 x 1.5 cm in the craniocaudal, AP, and transverse dimensions respectively. The isthmus measures 0.40 cm in AP dimension. Right lobe: There is a cystic nodule that measures 1.0 x 1.0 x 1.0 cm at the upper pole (TR1). There is a hypoechoic solid nodule that measures 1.0 x 1.0 x 1.0 cm at the upper pole (TR4). There is a hypoechoic solid nodule that measures 1.0 x 0.3 x 1.0 cm at the upper pole (TR4). There is a hypoechoic solid nodule that measures 0.4 x 0.3 x 0.4 cm at the mid pole (TR4). There is a hypoechoic solid nodule that measures 0.6 x 0.3 x 0.6 cm at the mid pole (TR4). There is a hypoechoic solid nodule that measures 0.4 x 0.3 x 0.4 cm at the lower pole (TR4). There is a hypoechoic solid nodule that measures 1.4 x 1.4 x 1.1 cm at the lower pole (TR5). There is a hypoechoic solid nodule that measures 1.0 x 0.5 x 1.0 cm at the lower pole (TR4). Left lobe: There is a cystic nodule that measures 0.3 x 0.3 x 0.4 cm at the upper pole (TR1). There is a hypoechoic solid nodule that measures 1.0 x 1.1 x 1.0 cm at the upper pole (TR5). There is a hypoechoic solid nodule that measures 1.3 x 1.0 x 1.0 cm at the mid pole (TR4). There is a hypoechoic solid nodule that measures 1.0 x 0.3 x 0.4 cm at the mid pole (TR4). There is a cystic nodule that measures 1.0 x 0.3 x 1.0 cm at the lower pole (TR1). There is a hypoechoic solid nodule that measures 1.3 x 1.0 x 1.0 cm at the lower pole (TR4). No significantly enlarged lymph nodes. IMPRESSION: Heterogenous tissue echotexture of both the lobes of the thyroid, of concern for thyroiditis. Nodules in both lobes of the thyroid. TI-RADS follow up recommendations: TR1: no FNA required TR2: no FNA required TR3: more than or equal to 1.5 cm follow up, more than or equal to 2.5 cm FNA follow up: 1, 3 and 5 years TR4: more than or equal to 1.0 cm follow up, more than or equal to 1.5 cm FNA follow up: 1, 2, 3 and 5 years TR5: more than or equal to 0.5 cm follow up, more than or equal to 1.0 cm FNA annual follow up for up to 5 years /Halie
--- NOTE | 2025-01-16 22:09 | PN ---
endocrinology progress note Date of Service: Jan 16, 2025 subjective: she is started on methimazole 5 mg daily. TSH 0.15, t 3 free 2.87 and t 4 free 1.04 am cortisol is pending and rule out adrenal insufficiency. 01/16/25: FINDINGS: The thyroid gland is normal in caliber with heterogenous tissue echotexture. The right thyroid lobe measures 4.4 x 2.4 x 1.3 cm and the left thyroid lobe measures 5.0 x 1.6 x 1.5 cm in the craniocaudal, AP, and transverse dimensions respectively. The isthmus measures 0.40 cm in AP dimension. Right lobe: There is a cystic nodule that measures 1.0 x 1.0 x 1.0 cm at the upper pole (TR1). There is a hypoechoic solid nodule that measures 1.0 x 1.0 x 1.0 cm at the upper pole (TR4). There is a hypoechoic solid nodule that measures 1.0 x 0.3 x 1.0 cm at the upper pole (TR4). There is a hypoechoic solid nodule that measures 0.4 x 0.3 x 0.4 cm at the mid pole (TR4). There is a hypoechoic solid nodule that measures 0.6 x 0.3 x 0.6 cm at the mid pole (TR4). There is a hypoechoic solid nodule that measures 0.4 x 0.3 x 0.4 cm at the lower pole (TR4). There is a hypoechoic solid nodule that measures 1.4 x 1.4 x 1.1 cm at the lower pole (TR5). There is a hypoechoic solid nodule that measures 1.0 x 0.5 x 1.0 cm at the lower pole (TR4). Left lobe: There is a cystic nodule that measures 0.3 x 0.3 x 0.4 cm at the upper pole (TR1). There is a hypoechoic solid nodule that measures 1.0 x 1.1 x 1.0 cm at the upper pole (TR5). There is a hypoechoic solid nodule that measures 1.3 x 1.0 x 1.0 cm at the mid pole (TR4). There is a hypoechoic solid nodule that measures 1.0 x 0.3 x 0.4 cm at the mid pole (TR4). There is a cystic nodule that measures 1.0 x 0.3 x 1.0 cm at the lower pole (TR1). There is a hypoechoic solid nodule that measures 1.3 x 1.0 x 1.0 cm at the lower pole (TR4). No significantly enlarged lymph nodes. IMPRESSION: Heterogenous tissue echotexture of both the lobes of the thyroid, of concern for thyroiditis. Nodules in both lobes of the thyroid. TI-RADS follow up recommendations: TR1: no FNA required TR2: no FNA required TR3: more than or equal to 1.5 cm follow up, more than or equal to 2.5 cm FNA follow up: 1, 3 and 5 years TR4: more than or equal to 1.0 cm follow up, more than or equal to 1.5 cm FNA follow up: 1, 2, 3 and 5 years TR5: more than or equal to 0.5 cm follow up, more than or equal to 1.0 cm FNA annual follow up for up to 5 years REVIEW OF SYSTEMS CONSTITUTIONAL: Denies fevers, chills, or night sweats. Reports having decreased appetite NEUROLOGICAL: Denies headache, amaurosis fugax, motor weakness, sensory deficit, vertigo/spinning sensation, gait abnormalities, or tremors. ENT: No hearing loss, otalgia, otorrhea, rhinitis, rhinorrhea, hoarseness, or sore throat. CARDIOVASCULAR: reports having recurrent syncopal episodes ongoing for the past one and a half month. PULMONARY: Denies any shortness of breath, cough, phlegm/sputum, hemoptysis, pleuritic chest pain. SLEEP: Denies morning headaches, daytime somnolence or napping. Denies difficulty falling asleep, staying asleep, waking from sleep. Denies knowledge of snoring. GASTROINTESTINAL: Denies any type of dysphagia to either liquids or solids. Denies nausea, vomiting, pyrosis, early satiety, abdominal pain, diarrhea, constipation, or changes in stool consistency or caliber. Denies coffee-ground emesis, hematemesis, hematochezia, or melanotic stools. GENITOURINARY: Denies frequency, urgency, nocturia, hematuria or incontinence (Storage/Irritative symptoms.) Low urinary stream, straining to void, urinary intermittency or hesitancy, splitting of the voiding stream, terminal dribbling. ENDOCRINOLOGIC: Denies polyuria, polydipsia, polyphagia or heat/cold intolerances. HEMATOLOGIC: Denies thrombophilia/previous clots, or coagulopathy/bleeding disorders. ONCOLOGIC: Denies personal history of malignancy. DERMATOLOGIC: Denies rashes or pruritus. PSYCHIATRIC: Denies any suicidal or homicidal ideation. Denies hallucinations. PAST MEDICAL HISTORY: History of COPD, dementia, anxiety, peripheral arterial disease, prior history of smoking PAST SURGICAL HISTORY: , history of surgery for abdominal aneurysm, cholecystectomy, prior history of lower extremity surgery for peripheral arterial disease PAST SOCIAL HISTORY: Patient is a resident of [facility] for the past five years, she has been using a wheelchair over the last one one due to recurrent syncopal episodes, needs assistance with IADLs FAMILY HISTORY: Denies major family history of medical conditions, denies any neurologic conditions Allergies: No known drug allergies Home medications: snf we will be sending list of medications to be reconciled and updated Coded Allergies: No Known Drug Allergies (Unverified Allergy, Unknown, 01/13/25) DIAGNOSTICS / RADIOLOGY: Chest x-ray and CT head without contrast is pending ASSESSMENT: thyrotoxicosis clinically and biochemically thyrotoxic despite mildly low tsh. reports heat intolerance, palpitations, 15 lbs weight loss. TSH 0.15, t 3 free 2.87 and t 4 free 1.04 am cortisol 21, so no evidence of adrenal insufficiency. thyroid nodules thyroid u/s show small thyroid nodules Orthostatic hypotension, POA Recurrent syncopal episodes with fall, POA Frailty/debility, POA History of orthostasis, POA History of COPD, POA History of anxiety disorder/ Depression, POA History of mild dementia, POA Hyperlipidemia, POA History of insomnia, POA PLAN: continue methimazole 5 mg daily. repeat thyroid ultrasound in 1 year. follow on TSI. repeat thyroid function in 1 month. Vitals/Labs Vital Signs Date Time Temp Pulse Resp B/P (MAP) Pulse Ox O2 Delivery O2 Flow Rate FiO2 01/16/25 20:58 82 20 01/16/25 20:57 N/A Room Air 21 01/16/25 19:00 98.6 108/66 95 01/16/25 07:25 0 Laboratory Tests 01/16/25 04:11 Medications Current Medications Sodium Chloride 1,000 ml @ 50 mls/hr Q20H IV Last administered on 01/16/25at 02:03; Start 01/13/25 at 14:30; Stop 02/12/25 at 14:29 Acetaminophen 650 mg Q6H PRN PO Last administered on 01/16/25at 10:34; Start 01/13/25 at 14:30; Stop 02/12/25 at 14:29 Ondansetron HCl 4 mg Q6H PRN IVP; Start 01/13/25 at 14:30; Stop 02/12/25 at 14:29 Montelukast Sodium 10 mg HS PO Last administered on 01/16/25at 21:20; Start 01/13/25 at 21:00; Stop 02/12/25 at 20:59 Trazodone HCl 75 mg HS PO; Start 01/13/25 at 21:00; Stop 01/13/25 at 14:58; Status DC Venlafaxine HCl 75 mg DAILY PO; Start 01/14/25 at 09:00; Stop 01/13/25 at 19:46; Status DC Atorvastatin Calcium 40 mg HS PO Last administered on 01/16/25at 21:20; Start 01/13/25 at 21:00; Stop 02/12/25 at 20:59 Clonazepam 0.5 mg BID PRN PO; Start 01/13/25 at 14:30; Stop 02/12/25 at 14:29 Albuterol 1 udvial Q6H PRN IH; Start 01/13/25 at 14:30; Stop 01/14/25 at 03:42; Status DC Memantine 5 mg DAILY PO Last administered on 01/16/25at 09:32; Start 01/14/25 at 09:00; Stop 02/13/25 at 08:59 Tiotropium [place] 18 mcg DAILY IH; Start 01/14/25 at 09:00; Stop 01/13/25 at 15:57; Status DC Polyethylene Glycol 17 gm DAILY PRN PO; Start 01/13/25 at 14:30; Stop 02/12/25 at 14:29 Sodium Chloride 500 ml @ 0 mls/hr ONCE ONCE IV Last administered on 01/13/25at 15:57; Start 01/13/25 at 15:30; Stop 01/13/25 at 15:56; Status DC Potassium Chloride 100 ml @ 100 mls/hr AD PRN IV; Start 01/13/25 at 15:30; Stop 02/12/25 at 15:29 Potassium Chloride 20 meq AD PRN PO; Start 01/13/25 at 15:30; Stop 02/12/25 at 15:29 Potassium Chloride 20 meq AD PRN PO Last administered on 01/16/25at 06:07; Start 01/13/25 at 15:30; Stop 02/12/25 at 15:29 Magnesium Sulfate 50 ml @ 0 mls/hr PROTOCOL IV Last administered on 01/15/25at 06:08; Start 01/13/25 at 15:30; Stop 01/15/25 at 08:39; Status DC Midodrine 5 mg TID PRN PO; Start 01/13/25 at 16:00; Stop 02/12/25 at 15:59 Trazodone HCl 50 mg HS PO Last administered on 01/16/25at 21:19; Start 01/13/25 at 21:00; Stop 02/12/25 at 20:59 Folic Acid 1 mg Q24H IV Last administered on 01/16/25at 16:09; Start 01/13/25 at 16:30; Stop 01/18/25 at 16:30 Hydralazine HCl 10 mg Q6H PRN IV; Start 01/13/25 at 17:30; Stop 02/12/25 at 17:29 Lactic Acid 1 GRAM DAILY TP Last administered on 01/16/25at 09:34; Start 01/14/25 at 09:00; Stop 02/13/25 at 08:59 Neomycin/ Polymyxin/ Bacitracin 1 appl DAILY TP Last administered on 01/16/25at 09:30; Start 01/14/25 at 09:00; Stop 02/13/25 at 08:59 Sucralfate 1 gm HS PO Last administered on 01/16/25at 21:19; Start 01/13/25 at 21:00; Stop 02/12/25 at 20:59 Calcium Carbonate 500 mg DAILY PO Last administered on 01/16/25at 09:34; Start 01/14/25 at 09:00; Stop 02/13/25 at 08:59 Artificial Tears TID OP Last administered on 01/16/25at 21:21; Start 01/13/25 at 21:00; Stop 02/12/25 at 20:59 Home Med DAILY PO Last administered on 01/16/25at 09:33; Start 01/14/25 at 09:00; Stop 02/13/25 at 08:59 Diphenhydramine HCl 25 mg HS PRN PO; Start 01/13/25 at 19:30; Stop 02/12/25 at 19:29 Lactobacillus Rhamnosus 1 each DAILY PO Last administered on 01/16/25at 09:30; Start 01/14/25 at 09:00; Stop 02/13/25 at 08:59 Melatonin 5 mg HS PO Last administered on 01/16/25at 21:20; Start 01/13/25 at 21:00; Stop 02/12/25 at 20:59 Venlafaxine HCl 150 mg DAILY PO Last administered on 01/16/25at 09:30; Start 01/14/25 at 09:00; Stop 02/13/25 at 08:59 Albuterol Sulfate 2.5 mg Q6H PRN IH; Start 01/14/25 at 04:00; Stop 02/13/25 at 03:59 Ipratropium [place] 0.5 mg [id number] IH Last administered on 01/16/25at 20:57; Start 01/14/25 at 06:00; Stop 02/13/25 at 05:59 Midodrine 2.5 mg DAILY PO Last administered on 01/15/25at 08:41; Start 01/14/25 at 09:00; Stop 01/16/25 at 07:02; Status DC Methimazole 10 mg DAILY PO; Start 01/15/25 at 09:00; Stop 01/14/25 at 12:24; Status DC Methimazole 5 mg DAILY PO Last administered on 01/16/25at 09:31; Start 01/15/25 at 09:00; Stop 02/14/25 at 08:59 Iohexol 75 ml STK-MED ONCE IV; Start 01/14/25 at 13:19; Stop 01/14/25 at 13:20; Status DC Potassium Chloride 100 ml @ 50 mls/hr ONCE ONCE IV Last administered on 01/15/25at 11:33; Start 01/15/25 at 09:00; Stop 9/4/25 at 10:59; Status DC Magnesium Sulfate 50 ml @ 0 mls/hr PROTOCOL IV; Start 01/15/25 at 09:00; Stop 02/14/25 at 08:59 Midodrine 2.5 mg Q8H5 PO Last administered on 01/16/25at 21:20; Start 01/16/25 at 07:00; Stop 02/13/25 at 08:59 PRISCILA ULRICH MD Jan 16, 2025 22:09
[2025-01-17] VITALS (15 sets, daily range): BP systolic 84–175; BP diastolic 50–85; PULSE 70–111; RESP 17–18; TEMP 98–98.6; O2SAT 94–97
--- NOTE | 2025-01-17 10:31 | PN ---
[facility] PROGRESS NOTE Date of Service: Jan 17, 2025 Time of Service: 10:28 SUBJECTIVE: [ ] 01/14 patient is seen and examined at bedside, case discussed with the RN, no acute events overnight, blood pressure 125/62, afebrile, saturating normal on room air, patient alert, following commands. Ultrasound carotid artery showing mild intimal thickening bilateral carotid arteries and their branches, plaques as described, bilateral ICA/CCA ratio is more than two, suggesting 50 to 69% stenosis. Recommended CT/MR angiogram. Discussed with the patient. CT angio of the neck has been requested, we will follow. Cardiology input noted and appreciated, monitor orthostatic hypotension, continue IV fluids, echocardiogram, continue compression stockings, continue midodrine 2.5 mg p.o. daily. Follow a.m. cortisol, follow endocrinology input and recommendation. Discussed with the patient. 01/15 patient remains admitted to the PCU, alert oriented x3, no acute events overnight per discussion with the RN. Mildly tachycardic earlier this morning, 12 lead EKG reviewed, atrial tachycardia, heart rate of 104. Echocardiogram showing LVEF 55-60%, normal left ventricular wall motion. CT angio of the neck was done, pending report. Pending thyroid ultrasound report. Discussed with the patient, all questions answered. 01/16 patient remains admitted to the PCU, awake, following commands, denies dizziness, no blurry vision, no chest pain, shortness shortness for breath, no nausea, no vomiting. 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 Cardiology input noted and appreciated, midodrine increased to 2.5 mg p.o. q.8 hours. Endocrinology input noted and appreciated, clinically and biochemically euthyroid toxic despite mildly low TSH, patient reporting heat intolerance, palpitations and 15 lb weight loss, a.m. cortisol is 21, no evidence of adrenal insufficiency, recommended to continue methimazole 5 mg p.o. daily, follow results of thyroid ultrasound. Repeat thyroid function testing one month. Discussed with the patient, in agreement. 01/17 patient remains admitted to the PCU, case discussed with the RN, no acute events overnight, the time of my visit patient comfortably in bed, awake, following commands. Per discussion with the RN, patient had some episodes of orthostasis yesterday, earlier this morning blood pressure 102/65, heart rate of 87, afebrile, saturating normal on room air. Results of thyroid ultrasound showing heterogeneous tissue echotexture of both lobes of the thyroid concern for thyroiditis, nodules in both lobes of the thyroid. Continue with orthostatic vital signs checked throughout the day. Continue with midodrine per Cardiology recommendation. Continue with the methimazole 5 mg p.o. daily per endocrinology consultation. REVIEW OF SYSTEMS CONSTITUTIONAL: Denies fevers, chills, or night sweats. Reports having decreased appetite NEUROLOGICAL: Denies headache, amaurosis fugax, motor weakness, sensory deficit, vertigo/spinning sensation, gait abnormalities, or tremors. ENT: No hearing loss, otalgia, otorrhea, rhinitis, rhinorrhea, hoarseness, or sore throat. CARDIOVASCULAR: reports having recurrent syncopal episodes ongoing for the past one and a half month. PULMONARY: Denies any shortness of breath, cough, phlegm/sputum, hemoptysis, pleuritic chest pain. SLEEP: Denies morning headaches, daytime somnolence or napping. Denies difficulty falling asleep, staying asleep, waking from sleep. Denies knowledge of snoring. GASTROINTESTINAL: Denies any type of dysphagia to either liquids or solids. Denies nausea, vomiting, pyrosis, early satiety, abdominal pain, diarrhea, constipation, or changes in stool consistency or caliber. Denies coffee-ground emesis, hematemesis, hematochezia, or melanotic stools. GENITOURINARY: Denies frequency, urgency, nocturia, hematuria or incontinence (Storage/Irritative symptoms.) Low urinary stream, straining to void, urinary intermittency or hesitancy, splitting of the voiding stream, terminal dribbling. ENDOCRINOLOGIC: Denies polyuria, polydipsia, polyphagia or heat/cold intolerances. HEMATOLOGIC: Denies thrombophilia/previous clots, or coagulopathy/bleeding disorders. ONCOLOGIC: Denies personal history of malignancy. DERMATOLOGIC: Denies rashes or pruritus. PSYCHIATRIC: Denies any suicidal or homicidal ideation. Denies hallucinations. PHYSICAL EXAM GENERAL APPEARANCE: The patient is awake, alert, appears frail and elderly NEUROLOGICAL: Cranial nerves II-XII grossly intact. Motor is 5/5 in bilateral upper and lower extremities proximal to distal. No sensory deficits. HEENT: Face is symmetric. Pupils are equal and reactive. Extraocular movements are intact. NECK: Supple. No JVD. No thyromegaly. No submental, submandibular, pre- /postauricular, occipital or supraclavicular lymphadenopathy. CHEST: Normal chest expansion. No Telemetry. LUNGS: Absence of any rales, rhonchi or any wheezing. CARDIOVASCULAR: Regular. S1 and S2 normal. No appreciable rubs, murmurs or gallops. ABDOMEN: Soft, nontender, and nondistended. There is no rebound, voluntary guarding, or rigidity. : Deferred. No Nixon. EXTREMITIES: Non-edematous and not cyanotic. No clubbing. Good capillary refill. SKIN: Open wound noted to the right elbow with skin tear, multiple abrasions noted of the upper and lower extremity Vital Signs (last 8hr) Date Time Temp Pulse Resp B/P (MAP) Pulse Ox O2 Delivery O2 Flow Rate FiO2 01/17/25 07:27 83 17 01/17/25 07:25 83 17 N/A Room Air 21 01/17/25 07:00 98.4 87 18 102/65 96 Room Air 01/17/25 03:00 98.6 84 18 175/73 97 Room Air LABS: Laboratory: Test 01/16/25 04:11 Range/Units Sodium Level 141 136-145 mmol/L Potassium Level 3.5 3.5-5.1 mmol/L Chloride Level 105 101-111 mmol/L Carbon Dioxide Level 29 21-32 mmol/L Blood Urea Nitrogen 8 7-18 mg/dL Creatinine 0.5 0.5-1.0 mg/dL Glomerular Filtration Rate Calc 98 >90 mL/min Random Glucose 98 70-105 mg/dL Total Calcium 8.5 8.5-10.1 mg/dL Magnesium Level 1.90 1.80-2.40 mg/dL Current Medications Medications (Trade) Dose Ordered Sig/Garry Route PRN Reason Start Time Stop Time Status Last Admin Dose Admin Acetaminophen (TYLenol 325MG TAB) 650 mg Q6H PRN PO MILD PAIN (1-3) 01/13/25 14:30 02/12/25 14:29 01/16/25 10:34 650 MG Albuterol (DUOneb) 1 udvial Q6H PRN IH SHORTNESS OF BREATH 01/13/25 14:30 01/14/25 03:42 DC Albuterol Sulfate (Proventil 0.083% 2.5mg/3ml) 2.5 mg Q6H PRN IH SHORTNESS OF BREATH 01/14/25 04:00 02/13/25 03:59 Artificial Tears (Artificial Tears) TID OP 01/13/25 21:00 02/12/25 20:59 01/17/25 10:15 1 DROP Atorvastatin Calcium (LIPItor 40MG) 40 mg HS PO 01/13/25 21:00 02/12/25 20:59 01/16/25 21:20 40 MG Calcium Carbonate (Oyster Shell Ca 500mg Tab) 500 mg DAILY PO 01/14/25 09:00 02/13/25 08:59 01/17/25 10:13 500 MG Clonazepam (clonazePAM 0.5 mg) 0.5 mg BID PRN PO anxiety 01/13/25 14:30 02/12/25 14:29 Diphenhydramine HCl (BENAdryl CAP) 25 mg HS PRN PO ITCHING 01/13/25 19:30 02/12/25 19:29 Folic Acid (FolVITE 5 MG/ML VIAL) 1 mg Q24H IV 01/13/25 16:30 01/18/25 16:30 01/16/25 16:09 1 MG Home Med (Home Medication) DAILY PO 01/14/25 09:00 02/13/25 08:59 01/16/25 09:33 1 EACH Hydralazine HCl (APRESOLine 20MG INJ) 10 mg Q6H PRN IV ADMINISTER FOR SBP > 180 01/13/25 17:30 02/12/25 17:29 Ipratropium [place] (AtrovENT UD) 0.5 mg [id number] IH 01/14/25 06:00 02/13/25 05:59 01/17/25 07:25 0.5 MG Lactic Acid (Lachydrin 226gm Lotion) 1 GRAM DAILY TP 01/14/25 09:00 02/13/25 08:59 01/17/25 10:26 1 GM Lactobacillus Rhamnosus ([facility] Sensorflare PC & Visualnest) 1 each DAILY PO 01/14/25 09:00 02/13/25 08:59 01/17/25 10:13 1 EACH Magnesium Sulfate 50 ml @ 0 mls/hr PROTOCOL IV 01/13/25 15:30 01/15/25 08:39 DC 01/15/25 06:08 25 MLS/HR Magnesium Sulfate 50 ml @ 0 mls/hr PROTOCOL IV 01/15/25 09:00 02/14/25 08:59 Melatonin (Melatonin) 5 mg HS PO 01/13/25 21:00 02/12/25 20:59 01/16/25 21:20 5 MG Memantine (NAmenDA 5 MG TAB) 5 mg DAILY PO 01/14/25 09:00 02/13/25 08:59 01/17/25 10:13 5 MG Methimazole (tapaZOLE) 5 mg DAILY PO 01/15/25 09:00 02/14/25 08:59 01/17/25 10:13 5 MG Methimazole (tapaZOLE) 10 mg DAILY PO 01/15/25 09:00 01/14/25 12:24 DC Midodrine (PROAMatine 5 MG TABLET) 2.5 mg DAILY PO 01/14/25 09:00 01/16/25 07:02 DC 01/15/25 08:41 2.5 MG Midodrine (PROAMatine 5 MG TABLET) 2.5 mg Q8H5 PO 01/16/25 07:00 02/13/25 08:59 01/16/25 21:20 2.5 MG Midodrine (PROAMatine 5 MG TABLET) 5 mg TID PRN PO for BP less than 90/60 01/13/25 16:00 02/12/25 15:59 Montelukast Sodium (SinguLAIR) 10 mg HS PO 01/13/25 21:00 02/12/25 20:59 01/16/25 21:20 10 MG Neomycin/ Polymyxin/ Bacitracin (Triple Antibiotic Ointment) 1 appl DAILY TP 01/14/25 09:00 02/13/25 08:59 01/17/25 10:26 1 APPL Ondansetron HCl (zoFRAN 4MG INJ) 4 mg Q6H PRN IVP NAUSEA/VOMITING 01/13/25 14:30 02/12/25 14:29 Polyethylene Glycol (MIRalax 3350 17 GM POWD.PACK) 17 gm DAILY PRN PO constipation 01/13/25 14:30 02/12/25 14:29 Potassium Chloride 100 ml @ 100 mls/hr AD PRN IV POTASSIUM PROTOCOL 01/13/25 15:30 02/12/25 15:29 Potassium Chloride (K-Dur/Klor-Con 20meq) 20 meq AD PRN PO POTASSIUM PROTOCOL 01/13/25 15:30 02/12/25 15:29 01/16/25 06:07 20 MEQ Potassium Chloride (KCl 10% Elixir 20meq/15ml) 20 meq AD PRN PO POTASSIUM PROTOCOL 01/13/25 15:30 02/12/25 15:29 Sodium Chloride 1,000 ml @ 50 mls/hr Q20H IV 01/13/25 14:30 02/12/25 14:29 01/16/25 02:03 50 MLS/HR Sucralfate (Carafate) 1 gm HS PO 01/13/25 21:00 02/12/25 20:59 01/16/25 21:19 1 GM Tiotropium [place] (Spiriva) 18 mcg DAILY IH 01/14/25 09:00 01/13/25 15:57 DC Trazodone HCl (DesyREL/OlepTRO) 50 mg HS PO 01/13/25 21:00 02/12/25 20:59 01/16/25 21:19 50 MG Trazodone HCl (DesyREL/OlepTRO) 75 mg HS PO 01/13/25 21:00 01/13/25 14:58 DC Venlafaxine HCl (EffEXOR 75 MG TAB) 75 mg DAILY PO 01/14/25 09:00 01/13/25 19:46 DC Venlafaxine HCl (EffEXOR 75 MG TAB) 150 mg DAILY PO 01/14/25 09:00 02/13/25 08:59 01/17/25 10:13 150 MG DIAGNOSTICS / RADIOLOGY: [ ] ASSESSMENT: Orthostatic hypotension, POA Recurrent syncopal episodes with fall, POA Frailty/debility, POA History of orthostasis, POA History of COPD, POA History of anxiety disorder/ Depression, POA History of mild dementia, POA Hyperlipidemia, POA History of insomnia, POA PLAN: Continue with orthostatic vital signs checked throughout the day. Continue with midodrine per Cardiology recommendation. Continue with the methimazole 5 mg p.o. daily per endocrinology consultation. NEURO: Minimize central acting medications as possible. Fall Precautions. Well lighted room through the day and minimize interruptions through the night to prevent acute delirium. PULMONARY: Supplemental 02 as needed BiPAP as necessary, for respiratory distress Titrate Fio2 to keep Spo2 > or = 90% DuoNebs and CPT as needed IS hourly while awake for pulmonary hygiene prn Out of bed to chair as tolerated Maintain aspiration precautions at all times CARDIOVASCULAR: Follow hemodynamics. Vital signs per facility protocol GI & NUTRITION: Continue nutritional support Aspirations precautions Prokinetic agents and laxatives as needed KIDNEYS & ELECTROLYTES: Strict monitoring of intake and output Daily weights Avoid nephrotoxic agents Monitor electrolytes and replace as needed Goal urine output of 30mL/hr or 0.5mL/kg/hr Medications to be dosed according to renal function. Avoid contrast if possible ENDOCRINE: Maintain blood glucose between 100-180 at all times. Insulin sliding scale for blood glucose management Hypoglycemia and hyperglycemia protocol in place INFECTIOUS DISEASE: Trend temperature, WBC and procalcitonin level Follow cultures, deescalate antibiotics as soon as possible. Panculture if new onset fever HEMATOLOGY & COAGULATION: Monitor H&H. Keep Hgb > 7 Transfuse 1 unit of PRBC for Hgb < 7 Transfuse 1 pack of platelets of platelets < 20, 000 Watch for any signs and symptoms of bleeding SKIN: Pressure ulcer prevention per facility protocol Specialty mattress as needed ORTHO/REHAB Continue PT/OT PRN: MEDICATIONS Tylenol 650 mg po every 4 hrs for fever zofran 4 mg IV every 6 hrs for n/v Hydralazine 5 mg IV every 4 hrs systolic pressure > 160 bowel regiment: lactulose 20 gm PO BID PRN constipation Supportive measures: Continue GI and DVT prophylaxis Disposition: Pending improvement in clinical condition All questions answered time spent: > 35 min GIORGI DELEON MD Jan 17, 2025 10:31
[2025-01-17 11:06] LABS: NUCLEATED RED BLOOD CELLS 0.0 % (0.0-0.19); PLATELET COUNT (AUTO) 273.0 K/uL (130-400); RED BLOOD CELL COUNT(AUTO) 4.26 MIL/uL (4.00-5.50); RED CELL DISTRIBUTION WIDTH 13.7 % (11.0-15.5); WHITE BLOOD COUNT (AUTO) 7.4 K/uL (4.8-10.8)
[2025-01-17 11:17] LABS: CREATININE 0.6 mg/dL (0.5-1.0); GLOMERULAR FILTR. RATE CALC 94.0 mL/min (>90); GLUCOSE,RANDOM 170.0 mg/dL (70-105); SODIUM SERUM 143.0 mmol/L (136-145); UREA NITROGEN, BLOOD 10.0 mg/dL (7-18)
[2025-01-17 11:21] LABS: ASPARTATE AMINOTRANSFERASE 17.0 U/L (10-37); TOTAL PROTEIN, SERUM 6.2 g/dL (6.0-8.3)
[2025-01-17] MEDS: NACL IV ONE (11:44)
[2025-01-17] MEDS: PINDOLOL 5 MG TAB PO STA (11:46)
--- NOTE | 2025-01-17 11:59 | NUR ---
TELEMETRY/SVT 1123-Patient's orthostatic VS were taken. While taking VS noted patient's HR increased with positions. Noted patient's HR went into 150s This RN called telemetry and child monitor tech stated they were about to call because HR went into SVT up to 180s. Patient positive for orthostatic hypotension as her SBP dropped to 80s from 130s. Patient positioned back into supine position. Patient's only complaint was of feeling her heart rate racing. No c/o dizziness or feeling lightheaded. Patient encouraged to bear down as if she was going to have a BM. Patient did this three times. 1126-Patient's heart rate responded and decreased to 120s. Notified charge nurse of patient's condition. Notified Dr. Scooter Ray of patient being in SVT and her current status. Dr. Ray stated he would come to floor. 1130-Dr. Scooter Ray came to floor and orders received. EKG was performed. Patient now sinus rhythm 106. NS bolus given and Pindolol given. Will continue to nursing care.
[2025-01-17] MEDS: MAGNESIUM 2GM PREMIX 50ML 50 ML IV SCH (12:52)
--- NOTE | 2025-01-17 13:14 | PN ---
[facility] CARDIOLOGY PROGRESS NOTE Date Patient Seen: Jan 17, 2025 Time of Visit: 13:10 Interval History: [No acute events overnight. The patient I suggest that her bedside, currently denying any dizziness, chest pain, palpitations dyspnea or any other anginal equivalents. Cortisone was also 21.8, yesterday orthostatics were positive, repeat orthostatics today were positive again the patient underwent an episode of sinus tach alternating with SVT in the 150s, review of deric ECG after the events sinus tach in the low 100s. Patient was given 100 mL NS bolus x1 Physical Examination: GENERAL: [No acute distress.] HEAD: [Normal with no signs of head trauma.] EYES: [PERRLA, EOMI, conjunctiva and sclera normal.] ENT: [Hearing grossly intact, normal oropharynx.] NECK: [Supple without JVD. There is no tenderness, lymphadenopathy, or masses. No thyromegaly. Normal carotid upstrokes without bruits.] LUNGS: [Clear breath sounds bilaterally. There are right basilar rales one third of the way up the chest. No wheezes, or rhonchi.] HEART: [Normal rate and rhythm. Normal S1 and S2 without mumurs, gallop or rub.] VASC: [Peripheral pulses +2 bilaterally.] ABD: [Bowel sounds normal, soft, nontender, no masses, no organomegaly. No audible bruits.] : [Not examined] LYMPH: [No lymphadenopathy noted.] EXT: [No clubbing, cyanosis or edema.] SKIN: [No rashes or lesions noted.] NEURO: [Awake, alert, and oriented x3. No focal sensory or strength deficits noted.] Laboratory: [ ] Hematology Labs: Test 01/17/25 11:03 Range/Units White Blood Count 7.4 4.8-10.8 K/uL Red Blood Count 4.26 4.00-5.50 MIL/uL Hemoglobin 12.7 12.0-16.0 g/dL Hematocrit 39.0 36-48 % Mean Corpuscular Volume 91.5 79-99 fL Mean Corpuscular Hemoglobin 29.8 27.0-33.0 pg Mean Corpuscular Hemoglobin Concent 32.6 32.0-36.0 g/dL Red Cell Distribution Width 13.7 11.0-15.5 % Platelet Count 273 130-400 K/uL Mean Platelet Volume 9.1 7.5-10.5 fL Nucleated Red Blood Cells 0.0 0.0-0.19 % Chemistry Labs: Test 01/17/25 11:03 Range/Units Sodium Level 143 136-145 mmol/L Potassium Level 3.3 L 3.5-5.1 mmol/L Chloride Level 105 101-111 mmol/L Carbon Dioxide Level 34 H 21-32 mmol/L Blood Urea Nitrogen 10 7-18 mg/dL Creatinine 0.6 0.5-1.0 mg/dL Glomerular Filtration Rate Calc 94 >90 mL/min Random Glucose 170 H 70-105 mg/dL Total Calcium 8.7 8.5-10.1 mg/dL Magnesium Level 1.80 1.80-2.40 mg/dL Total Bilirubin 0.2 0.2-1.0 mg/dL Aspartate Amino Transf (AST/SGOT) 17 10-37 U/L Alanine Aminotransferase (ALT/SGPT) 17 12-78 U/L Alkaline Phosphatase 194 H 50-136 U/L Total Protein 6.2 6.0-8.3 g/dL Albumin 2.9 L 3.5-5.0 g/dL Diagnostics / Radiology: [Copy/Paste Echos/Imaging Report here] Impression and Plan: [#Orthostatic hypotension -orthostatic for positive yesterday and today -patient has presented with an event of sinus tachycardia alternated with NSVT in the 150s, upon review of telemetry strips. -cortisol to one and 1.8 -F/u 2d echo is normal LVEF, no valvular pathology - carotid US: There are calcified plaques in the right bulb and common carotid, proximal internal, and external carotid arteries causing about 20% to 30% diameter stenosis. There are calcified plaques in the left bulb, common carotid, and proximal internal carotid arteries about 20% to 30% diameter stenosis. Bilateral ICA/CCA ratio is more than 2, suggesting 50% to 69% stenosis. --CT head/neck: 1. Calcified plaques in the bilateral common carotid artery and carotid bulbs with 20-25% stenosis at the carotid bulbs. 2. 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 -Tele shows no events -apply compression socks -we will discontinue midodrine at this time Keep checking orthostatics every12 hours, if positive administered 500 mL of nor mal saline x1 IV Keep on telemetry, monitor/replace electrolytes as needed, strict I's and o's and daily weights Start pindolol 5 mg every 12 hours If episodes of SVT and sinus tachycardia are ongoing we will consider EP consultation #Hyperthyroid -methimazole started by Endocrinology, -thyroid ultrasound showed a nodule, Primary team was following Scooter gaspar MD ATTESTATION BY PHYSICIAN I have seen and examined the patient, reviewed the above documentation, participated in medical decision making, made necessary modifications, and agree with the treatment plan as documented by my mid-level provider above. MD MAGY Godfrey JAMES R MD Jan 17, 2025 13:14
[2025-01-17] MEDS: PoTASSium chloRIDE 20MEQ ER 20 MEQ ERTAB PO ONE (14:17)
[2025-01-17] MEDS: PINDOLOL 5 MG TAB PO SCH (20:59)
--- NOTE | 2025-01-17 22:11 | PN ---
endocrinology progress note Date of Service: Jan 17, 2025 subjective: she is started on methimazole 5 mg daily. TSH 0.15, t 3 free 2.87 and t 4 free 1.04 am cortisol is pending and rule out adrenal insufficiency. 01/16/25: FINDINGS: The thyroid gland is normal in caliber with heterogenous tissue echotexture. The right thyroid lobe measures 4.4 x 2.4 x 1.3 cm and the left thyroid lobe measures 5.0 x 1.6 x 1.5 cm in the craniocaudal, AP, and transverse dimensions respectively. The isthmus measures 0.40 cm in AP dimension. Right lobe: There is a cystic nodule that measures 1.0 x 1.0 x 1.0 cm at the upper pole (TR1). There is a hypoechoic solid nodule that measures 1.0 x 1.0 x 1.0 cm at the upper pole (TR4). There is a hypoechoic solid nodule that measures 1.0 x 0.3 x 1.0 cm at the upper pole (TR4). There is a hypoechoic solid nodule that measures 0.4 x 0.3 x 0.4 cm at the mid pole (TR4). There is a hypoechoic solid nodule that measures 0.6 x 0.3 x 0.6 cm at the mid pole (TR4). There is a hypoechoic solid nodule that measures 0.4 x 0.3 x 0.4 cm at the lower pole (TR4). There is a hypoechoic solid nodule that measures 1.4 x 1.4 x 1.1 cm at the lower pole (TR5). There is a hypoechoic solid nodule that measures 1.0 x 0.5 x 1.0 cm at the lower pole (TR4). Left lobe: There is a cystic nodule that measures 0.3 x 0.3 x 0.4 cm at the upper pole (TR1). There is a hypoechoic solid nodule that measures 1.0 x 1.1 x 1.0 cm at the upper pole (TR5). There is a hypoechoic solid nodule that measures 1.3 x 1.0 x 1.0 cm at the mid pole (TR4). There is a hypoechoic solid nodule that measures 1.0 x 0.3 x 0.4 cm at the mid pole (TR4). There is a cystic nodule that measures 1.0 x 0.3 x 1.0 cm at the lower pole (TR1). There is a hypoechoic solid nodule that measures 1.3 x 1.0 x 1.0 cm at the lower pole (TR4). No significantly enlarged lymph nodes. IMPRESSION: Heterogenous tissue echotexture of both the lobes of the thyroid, of concern for thyroiditis. Nodules in both lobes of the thyroid. TI-RADS follow up recommendations: TR1: no FNA required TR2: no FNA required TR3: more than or equal to 1.5 cm follow up, more than or equal to 2.5 cm FNA follow up: 1, 3 and 5 years TR4: more than or equal to 1.0 cm follow up, more than or equal to 1.5 cm FNA follow up: 1, 2, 3 and 5 years TR5: more than or equal to 0.5 cm follow up, more than or equal to 1.0 cm FNA annual follow up for up to 5 years REVIEW OF SYSTEMS CONSTITUTIONAL: Denies fevers, chills, or night sweats. Reports having decreased appetite NEUROLOGICAL: Denies headache, amaurosis fugax, motor weakness, sensory deficit, vertigo/spinning sensation, gait abnormalities, or tremors. ENT: No hearing loss, otalgia, otorrhea, rhinitis, rhinorrhea, hoarseness, or sore throat. CARDIOVASCULAR: reports having recurrent syncopal episodes ongoing for the past one and a half month. PULMONARY: Denies any shortness of breath, cough, phlegm/sputum, hemoptysis, pleuritic chest pain. SLEEP: Denies morning headaches, daytime somnolence or napping. Denies difficulty falling asleep, staying asleep, waking from sleep. Denies knowledge of snoring. GASTROINTESTINAL: Denies any type of dysphagia to either liquids or solids. Denies nausea, vomiting, pyrosis, early satiety, abdominal pain, diarrhea, constipation, or changes in stool consistency or caliber. Denies coffee-ground emesis, hematemesis, hematochezia, or melanotic stools. GENITOURINARY: Denies frequency, urgency, nocturia, hematuria or incontinence (Storage/Irritative symptoms.) Low urinary stream, straining to void, urinary intermittency or hesitancy, splitting of the voiding stream, terminal dribbling. ENDOCRINOLOGIC: Denies polyuria, polydipsia, polyphagia or heat/cold intolerances. HEMATOLOGIC: Denies thrombophilia/previous clots, or coagulopathy/bleeding disorders. ONCOLOGIC: Denies personal history of malignancy. DERMATOLOGIC: Denies rashes or pruritus. PSYCHIATRIC: Denies any suicidal or homicidal ideation. Denies hallucinations. PAST MEDICAL HISTORY: History of COPD, dementia, anxiety, peripheral arterial disease, prior history of smoking PAST SURGICAL HISTORY: , history of surgery for abdominal aneurysm, cholecystectomy, prior history of lower extremity surgery for peripheral arterial disease PAST SOCIAL HISTORY: Patient is a resident of [facility] for the past five years, she has been using a wheelchair over the last one one due to recurrent syncopal episodes, needs assistance with IADLs FAMILY HISTORY: Denies major family history of medical conditions, denies any neurologic conditions Allergies: No known drug allergies Home medications: alf we will be sending list of medications to be reconciled and updated Coded Allergies: No Known Drug Allergies (Unverified Allergy, Unknown, 01/13/25) DIAGNOSTICS / RADIOLOGY: Chest x-ray and CT head without contrast is pending ASSESSMENT: thyrotoxicosis clinically and biochemically thyrotoxic despite mildly low tsh. reports heat intolerance, palpitations, 15 lbs weight loss. TSH 0.15, t 3 free 2.87 and t 4 free 1.04 am cortisol 21, so no evidence of adrenal insufficiency. thyroid nodules thyroid u/s show small thyroid nodules Orthostatic hypotension, POA Recurrent syncopal episodes with fall, POA Frailty/debility, POA History of orthostasis, POA History of COPD, POA History of anxiety disorder/ Depression, POA History of mild dementia, POA Hyperlipidemia, POA History of insomnia, POA PLAN: continue methimazole 5 mg daily. repeat thyroid ultrasound in 1 year. follow on TSI. repeat thyroid function in 1 month. Vitals/Labs Vital Signs Date Time Temp Pulse Resp B/P (MAP) Pulse Ox O2 Delivery O2 Flow Rate FiO2 01/17/25 19:00 98.2 75 18 120/65 97 Room Air 01/17/25 18:55 21 01/17/25 10:15 0 Laboratory Tests 01/17/25 11:03 Medications Current Medications Sodium Chloride 1,000 ml @ 50 mls/hr Q20H IV Last administered on 01/17/25at 17:33; Start 01/13/25 at 14:30; Stop 02/12/25 at 14:29 Acetaminophen 650 mg Q6H PRN PO Last administered on 01/16/25at 10:34; Start 01/13/25 at 14:30; Stop 02/12/25 at 14:29 Ondansetron HCl 4 mg Q6H PRN IVP; Start 01/13/25 at 14:30; Stop 02/12/25 at 14:29 Montelukast Sodium 10 mg HS PO Last administered on 01/17/25at 20:59; Start 01/13/25 at 21:00; Stop 02/12/25 at 20:59 Trazodone HCl 75 mg HS PO; Start 01/13/25 at 21:00; Stop 01/13/25 at 14:58; Status DC Venlafaxine HCl 75 mg DAILY PO; Start 01/14/25 at 09:00; Stop 01/13/25 at 19:46; Status DC Atorvastatin Calcium 40 mg HS PO Last administered on 01/17/25at 20:59; Start 01/13/25 at 21:00; Stop 02/12/25 at 20:59 Clonazepam 0.5 mg BID PRN PO; Start 01/13/25 at 14:30; Stop 02/12/25 at 14:29 Albuterol 1 udvial Q6H PRN IH; Start 01/13/25 at 14:30; Stop 01/14/25 at 03:42; Status DC Memantine 5 mg DAILY PO Last administered on 01/17/25at 10:13; Start 01/14/25 at 09:00; Stop 02/13/25 at 08:59 Tiotropium [place] 18 mcg DAILY IH; Start 01/14/25 at 09:00; Stop 01/13/25 at 15:57; Status DC Polyethylene Glycol 17 gm DAILY PRN PO; Start 01/13/25 at 14:30; Stop 02/12/25 at 14:29 Sodium Chloride 500 ml @ 0 mls/hr ONCE ONCE IV Last administered on 01/13/25at 15:57; Start 01/13/25 at 15:30; Stop 01/13/25 at 15:56; Status DC Potassium Chloride 100 ml @ 100 mls/hr AD PRN IV; Start 01/13/25 at 15:30; Stop 02/12/25 at 15:29 Potassium Chloride 20 meq AD PRN PO; Start 01/13/25 at 15:30; Stop 02/12/25 at 15:29 Potassium Chloride 20 meq AD PRN PO Last administered on 01/17/25at 11:14; Start 01/13/25 at 15:30; Stop 02/12/25 at 15:29 Magnesium Sulfate 50 ml @ 0 mls/hr PROTOCOL IV Last administered on 01/15/25at 06:08; Start 01/13/25 at 15:30; Stop 01/15/25 at 08:39; Status DC Midodrine 5 mg TID PRN PO; Start 01/13/25 at 16:00; Stop 02/12/25 at 15:59 Trazodone HCl 50 mg HS PO Last administered on 01/17/25at 20:59; Start 01/13/25 at 21:00; Stop 02/12/25 at 20:59 Folic Acid 1 mg Q24H IV Last administered on 01/17/25at 17:45; Start 01/13/25 at 16:30; Stop 01/18/25 at 16:30 Hydralazine HCl 10 mg Q6H PRN IV; Start 01/13/25 at 17:30; Stop 02/12/25 at 17:29 Lactic Acid 1 GRAM DAILY TP Last administered on 01/17/25at 10:26; Start 01/14/25 at 09:00; Stop 02/13/25 at 08:59 Neomycin/ Polymyxin/ Bacitracin 1 appl DAILY TP Last administered on 01/17/25at 10:26; Start 01/14/25 at 09:00; Stop 02/13/25 at 08:59 Sucralfate 1 gm HS PO Last administered on 01/17/25at 20:59; Start 01/13/25 at 21:00; Stop 02/12/25 at 20:59 Calcium Carbonate 500 mg DAILY PO Last administered on 01/17/25at 10:13; Start 01/14/25 at 09:00; Stop 02/13/25 at 08:59 Artificial Tears TID OP Last administered on 01/17/25at 21:09; Start 01/13/25 at 21:00; Stop 02/12/25 at 20:59 Home Med DAILY PO Last administered on 01/16/25at 09:33; Start 01/14/25 at 09:00; Stop 02/13/25 at 08:59 Diphenhydramine HCl 25 mg HS PRN PO; Start 01/13/25 at 19:30; Stop 02/12/25 at 19:29 Lactobacillus Rhamnosus 1 each DAILY PO Last administered on 01/17/25at 10:13; Start 01/14/25 at 09:00; Stop 02/13/25 at 08:59 Melatonin 5 mg HS PO Last administered on 01/17/25at 20:59; Start 01/13/25 at 21:00; Stop 02/12/25 at 20:59 Venlafaxine HCl 150 mg DAILY PO Last administered on 01/17/25at 10:13; Start 01/14/25 at 09:00; Stop 02/13/25 at 08:59 Albuterol Sulfate 2.5 mg Q6H PRN IH; Start 01/14/25 at 04:00; Stop 02/13/25 at 03:59 Ipratropium [place] 0.5 mg [id number] IH Last administered on 01/17/25at 18:54; Start 01/14/25 at 06:00; Stop 02/13/25 at 05:59 Midodrine 2.5 mg DAILY PO Last administered on 01/15/25at 08:41; Start 01/14/25 at 09:00; Stop 01/16/25 at 07:02; Status DC Methimazole 10 mg DAILY PO; Start 01/15/25 at 09:00; Stop 01/14/25 at 12:24; Status DC Methimazole 5 mg DAILY PO Last administered on 01/17/25at 10:13; Start 01/15/25 at 09:00; Stop 02/14/25 at 08:59 Iohexol 75 ml STK-MED ONCE IV; Start 01/14/25 at 13:19; Stop 01/14/25 at 13:20; Status DC Potassium Chloride 100 ml @ 50 mls/hr ONCE ONCE IV Last administered on 01/15/25at 11:33; Start 01/15/25 at 09:00; Stop 01/15/25 at 10:59; Status DC Magnesium Sulfate 50 ml @ 0 mls/hr PROTOCOL IV Last administered on 01/17/25at 12:52; Start 01/15/25 at 09:00; Stop 02/14/25 at 08:59 Midodrine 2.5 mg Q8H5 PO Last administered on 01/17/25at 20:59; Start 01/16/25 at 07:00; Stop 02/13/25 at 08:59 Pindolol 5 mg ONCE STAT PO Last administered on 01/17/25at 11:46; Start 01/17/25 at 11:29; Stop 01/17/25 at 11:42; Status DC Pindolol 5 mg BID PO Last administered on 01/17/25at 20:59; Start 01/17/25 at 21:00; Stop 02/16/25 at 20:59 Sodium Chloride 594 ml @ 198 mls/hr ONCE ONCE IV Last administered on 01/17/25at 11:44; Start 01/17/25 at 11:30; Stop 01/17/25 at 14:29; Status DC Potassium Chloride 40 meq ONCE ONCE PO Last administered on 01/17/25at 14:17; Start 01/17/25 at 14:00; Stop 01/17/25 at 14:01; Status DC PRISCILA ULRICH MD Jan 17, 2025 22:11
[2025-01-18] VITALS (22 sets, daily range): BP systolic 75–129; BP diastolic 41–82; PULSE 65–94; RESP 16–18; TEMP 97.5–98.3; O2SAT 96–98
[2025-01-18 04:09] LABS: NUCLEATED RED BLOOD CELLS 0.0 % (0.0-0.19); PLATELET COUNT (AUTO) 238.0 K/uL (130-400); RED BLOOD CELL COUNT(AUTO) 4.05 MIL/uL (4.00-5.50); RED CELL DISTRIBUTION WIDTH 13.9 % (11.0-15.5); WHITE BLOOD COUNT (AUTO) 7.0 K/uL (4.8-10.8)
[2025-01-18 04:43] LABS: ASPARTATE AMINOTRANSFERASE 16.0 U/L (10-37); CREATININE 0.8 mg/dL (0.5-1.0); GLOMERULAR FILTR. RATE CALC 77.0 mL/min (>90); GLUCOSE,RANDOM 107.0 mg/dL (70-105); SODIUM SERUM 141.0 mmol/L (136-145); TOTAL PROTEIN, SERUM 5.9 g/dL (6.0-8.3); UREA NITROGEN, BLOOD 15.0 mg/dL (7-18)
--- NOTE | 2025-01-18 11:34 | PN ---
[facility] PROGRESS NOTE Date of Service: Jan 18, 2025 Time of Service: 11:31 SUBJECTIVE: [ ] 01/14 patient is seen and examined at bedside, case discussed with the RN, no acute events overnight, blood pressure 125/62, afebrile, saturating normal on room air, patient alert, following commands. Ultrasound carotid artery showing mild intimal thickening bilateral carotid arteries and their branches, plaques as described, bilateral ICA/CCA ratio is more than two, suggesting 50 to 69% stenosis. Recommended CT/MR angiogram. Discussed with the patient. CT angio of the neck has been requested, we will follow. Cardiology input noted and appreciated, monitor orthostatic hypotension, continue IV fluids, echocardiogram, continue compression stockings, continue midodrine 2.5 mg p.o. daily. Follow a.m. cortisol, follow endocrinology input and recommendation. Discussed with the patient. 01/15 patient remains admitted to the PCU, alert oriented x3, no acute events overnight per discussion with the RN. Mildly tachycardic earlier this morning, 12 lead EKG reviewed, atrial tachycardia, heart rate of 104. Echocardiogram showing LVEF 55-60%, normal left ventricular wall motion. CT angio of the neck was done, pending report. Pending thyroid ultrasound report. Discussed with the patient, all questions answered. 01/16 patient remains admitted to the PCU, awake, following commands, denies dizziness, no blurry vision, no chest pain, shortness shortness for breath, no nausea, no vomiting. 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 Cardiology input noted and appreciated, midodrine increased to 2.5 mg p.o. q.8 hours. Endocrinology input noted and appreciated, clinically and biochemically euthyroid toxic despite mildly low TSH, patient reporting heat intolerance, palpitations and 15 lb weight loss, a.m. cortisol is 21, no evidence of adrenal insufficiency, recommended to continue methimazole 5 mg p.o. daily, follow results of thyroid ultrasound. Repeat thyroid function testing one month. Discussed with the patient, in agreement. 01/17 patient remains admitted to the PCU, case discussed with the RN, no acute events overnight, the time of my visit patient comfortably in bed, awake, following commands. Per discussion with the RN, patient had some episodes of orthostasis yesterday, earlier this morning blood pressure 102/65, heart rate of 87, afebrile, saturating normal on room air. Results of thyroid ultrasound showing heterogeneous tissue echotexture of both lobes of the thyroid concern for thyroiditis, nodules in both lobes of the thyroid. Continue with orthostatic vital signs checked throughout the day. Continue with midodrine per Cardiology recommendation. Continue with the methimazole 5 mg p.o. daily per endocrinology consultation. 01/18 patient remains admitted to the PCU, case discussed with the RN, patient is still with a episodes of orthostatic hypotension, alternating with a episodes of sinus tachycardia with the SVTs in the 150s, evaluated by cartridge gauger, placed on pindolol. If ongoing episodes of SVT and sinus tachycardia consider EP consultation. Results of thyroid ultrasound showing heterogeneous tissue echotexture of both lobes of the thyroid concern for thyroiditis, nodules in both lobes of the thyroid. Clinically and biochemically euthyroid toxic despite mildly low TSH, patient reporting heat intolerance, palpitations and 15 lb weight loss, a.m. cortisol is 21, no evidence of adrenal insufficiency,on methimazole 5 mg p.o. daily. Continue to follow endocrinology input and barbie mmendation. REVIEW OF SYSTEMS CONSTITUTIONAL: Denies fevers, chills, or night sweats. Reports having decreased appetite NEUROLOGICAL: Denies headache, amaurosis fugax, motor weakness, sensory deficit, vertigo/spinning sensation, gait abnormalities, or tremors. ENT: No hearing loss, otalgia, otorrhea, rhinitis, rhinorrhea, hoarseness, or sore throat. CARDIOVASCULAR: reports having recurrent syncopal episodes ongoing for the past one and a half month. PULMONARY: Denies any shortness of breath, cough, phlegm/sputum, hemoptysis, pleuritic chest pain. SLEEP: Denies morning headaches, daytime somnolence or napping. Denies difficulty falling asleep, staying asleep, waking from sleep. Denies knowledge of snoring. GASTROINTESTINAL: Denies any type of dysphagia to either liquids or solids. Denies nausea, vomiting, pyrosis, early satiety, abdominal pain, diarrhea, constipation, or changes in stool consistency or caliber. Denies coffee-ground emesis, hematemesis, hematochezia, or melanotic stools. GENITOURINARY: Denies frequency, urgency, nocturia, hematuria or incontinence (Storage/Irritative symptoms.) Low urinary stream, straining to void, urinary intermittency or hesitancy, splitting of the voiding stream, terminal dribbling. ENDOCRINOLOGIC: Denies polyuria, polydipsia, polyphagia or heat/cold intolerances. HEMATOLOGIC: Denies thrombophilia/previous clots, or coagulopathy/bleeding disorders. ONCOLOGIC: Denies personal history of malignancy. DERMATOLOGIC: Denies rashes or pruritus. PSYCHIATRIC: Denies any suicidal or homicidal ideation. Denies hallucinations. PHYSICAL EXAM GENERAL APPEARANCE: The patient is awake, alert, appears frail and elderly NEUROLOGICAL: Cranial nerves II-XII grossly intact. Motor is 5/5 in bilateral upper and lower extremities proximal to distal. No sensory deficits. HEENT: Face is symmetric. Pupils are equal and reactive. Extraocular movements are intact. NECK: Supple. No JVD. No thyromegaly. No submental, submandibular, pre- /postauricular, occipital or supraclavicular lymphadenopathy. CHEST: Normal chest expansion. No Telemetry. LUNGS: Absence of any rales, rhonchi or any wheezing. CARDIOVASCULAR: Regular. S1 and S2 normal. No appreciable rubs, murmurs or gallops. ABDOMEN: Soft, nontender, and nondistended. There is no rebound, voluntary guarding, or rigidity. : Deferred. No Nixon. EXTREMITIES: Non-edematous and not cyanotic. No clubbing. Good capillary r efill. SKIN: Open wound noted to the right elbow with skin tear, multiple abrasions noted of the upper and lower extremity Vital Signs (last 8hr) Date Time Temp Pulse Resp B/P (MAP) Pulse Ox O2 Delivery O2 Flow Rate FiO2 01/18/25 09:30 98 Room Air* 0 21 01/18/25 07:44 88 95/49 Room Air 01/18/25 07:40 81 86/45 Room Air 01/18/25 07:38 98.2 67 16 104/59 100 Room Air 01/18/25 07:16 66 16 N/A Room Air 21 01/18/25 07:14 65 17 LABS: Laboratory: Test 01/18/25 03:58 Range/Units White Blood Count 7.0 4.8-10.8 K/uL Red Blood Count 4.05 4.00-5.50 MIL/uL Hemoglobin 12.0 12.0-16.0 g/dL Hematocrit 38.0 36-48 % Mean Corpuscular Volume 93.8 79-99 fL Mean Corpuscular Hemoglobin 29.6 27.0-33.0 pg Mean Corpuscular Hemoglobin Concent 31.6 L 32.0-36.0 g/dL Red Cell Distribution Width 13.9 11.0-15.5 % Platelet Count 238 130-400 K/uL Mean Platelet Volume 9.0 7.5-10.5 fL Nucleated Red Blood Cells 0.0 0.0-0.19 % Sodium Level 141 136-145 mmol/L Potassium Level 4.2 3.5-5.1 mmol/L Chloride Level 105 101-111 mmol/L Carbon Dioxide Level 31 21-32 mmol/L Blood Urea Nitrogen 15 7-18 mg/dL Creatinine 0.8 0.5-1.0 mg/dL Glomerular Filtration Rate Calc 77 >90 mL/min Random Glucose 107 H 70-105 mg/dL Total Calcium 8.7 8.5-10.1 mg/dL Magnesium Level 2.10 1.80-2.40 mg/dL Total Bilirubin 0.1 #L 0.2-1.0 mg/dL Aspartate Amino Transf (AST/SGOT) 16 10-37 U/L Alanine Aminotransferase (ALT/SGPT) 16 12-78 U/L Alkaline Phosphatase 183 H 50-136 U/L Total Protein 5.9 L 6.0-8.3 g/dL Albumin 2.7 L 3.5-5.0 g/dL Current Medications Medications (Trade) Dose Ordered Sig/Garry Route PRN Reason Start Time Stop Time Status Last Admin Dose Admin Acetaminophen (TYLenol 325MG TAB) 650 mg Q6H PRN PO MILD PAIN (1-3) 01/13/25 14:30 02/12/25 14:29 01/16/25 10:34 650 MG Albuterol (DUOneb) 1 udvial Q6H PRN IH SHORTNESS OF BREATH 01/13/25 14:30 01/14/25 03:42 DC Albuterol Sulfate (Proventil 0.083% 2.5mg/3ml) 2.5 mg Q6H PRN IH SHORTNESS OF BREATH 01/14/25 04:00 02/13/25 03:59 Artificial Tears (Artificial Tears) TID OP 01/13/25 21:00 02/12/25 20:59 01/18/25 09:18 1 DROP Atorvastatin Calcium (LIPItor 40MG) 40 mg HS PO 01/13/25 21:00 02/12/25 20:59 01/17/25 20:59 40 MG Calcium Carbonate (Oyster Shell Ca 500mg Tab) 500 mg DAILY PO 01/14/25 09:00 02/13/25 08:59 01/18/25 09:17 500 MG Clonazepam (clonazePAM 0.5 mg) 0.5 mg BID PRN PO anxiety 01/13/25 14:30 02/12/25 14:29 Diphenhydramine HCl (BENAdryl CAP) 25 mg HS PRN PO ITCHING 01/13/25 19:30 02/12/25 19:29 Folic Acid (FolVITE 5 MG/ML VIAL) 1 mg Q24H IV 01/13/25 16:30 01/18/25 16:30 01/17/25 17:45 1 MG Home Med (Home Medication) DAILY PO 01/14/25 09:00 02/13/25 08:59 01/16/25 09:33 1 EACH Hydralazine HCl (APRESOLine 20MG INJ) 10 mg Q6H PRN IV ADMINISTER FOR SBP > 180 01/13/25 17:30 02/12/25 17:29 Ipratropium Candia (AtrovENT UD) 0.5 mg [id number] IH 01/14/25 06:00 02/13/25 05:59 01/18/25 07:14 0.5 MG Lactic Acid (Lachydrin 226gm Lotion) 1 GRAM DAILY TP 01/14/25 09:00 02/13/25 08:59 01/18/25 09:18 1 GM Lactobacillus Rhamnosus ([facility]) 1 each DAILY PO 01/14/25 09:00 02/13/25 08:59 01/18/25 09:17 1 EACH Magnesium Sulfate 50 ml @ 0 mls/hr PROTOCOL IV 01/13/25 15:30 01/15/25 08:39 DC 01/15/25 06:08 25 MLS/HR Magnesium Sulfate 50 ml @ 0 mls/hr PROTOCOL IV 01/15/25 09:00 02/14/25 08:59 01/17/25 12:52 25 MLS/HR Melatonin (Melatonin) 5 mg HS PO 01/13/25 21:00 02/12/25 20:59 01/17/25 20:59 5 MG Memantine (NAmenDA 5 MG TAB) 5 mg DAILY PO 01/14/25 09:00 02/13/25 08:59 01/18/25 09:17 5 MG Methimazole (tapaZOLE) 5 mg DAILY PO 01/15/25 09:00 02/14/25 08:59 01/18/25 09:17 5 MG Methimazole (tapaZOLE) 10 mg DAILY PO 01/15/25 09:00 01/14/25 12:24 DC Midodrine (PROAMatine 5 MG TABLET) 2.5 mg DAILY PO 01/14/25 09:00 01/16/25 07:02 DC 01/15/25 08:41 2.5 MG Midodrine (PROAMatine 5 MG TABLET) 2.5 mg Q8H5 PO 01/16/25 07:00 02/13/25 08:59 01/17/25 20:59 2.5 MG Midodrine (PROAMatine 5 MG TABLET) 5 mg TID PRN PO for BP less than 90/60 01/13/25 16:00 02/12/25 15:59 01/18/25 03:50 5 MG Montelukast Sodium (SinguLAIR) 10 mg HS PO 01/13/25 21:00 02/12/25 20:59 01/17/25 20:59 10 MG Neomycin/ Polymyxin/ Bacitracin (Triple Antibiotic Ointment) 1 appl DAILY TP 01/14/25 09:00 02/13/25 08:59 01/18/25 09:18 1 APPL Ondansetron HCl (zoFRAN 4MG INJ) 4 mg Q6H PRN IVP NAUSEA/VOMITING 01/13/25 14:30 02/12/25 14:29 Pindolol (Visken) 5 mg BID PO 01/17/25 21:00 02/16/25 20:59 01/18/25 09:18 5 MG Pindolol (Visken) 5 mg ONCE STAT PO 01/17/25 11:29 9/6/25 11:42 DC 01/17/25 11:46 5 MG Polyethylene Glycol (MIRalax 3350 17 GM POWD.PACK) 17 gm DAILY PRN PO constipation 01/13/25 14:30 02/12/25 14:29 01/18/25 09:29 17 GM Potassium Chloride 100 ml @ 100 mls/hr AD PRN IV POTASSIUM PROTOCOL 01/13/25 15:30 02/12/25 15:29 Potassium Chloride (K-Dur/Klor-Con 20meq) 20 meq AD PRN PO POTASSIUM PROTOCOL 01/13/25 15:30 02/12/25 15:29 01/17/25 11:14 20 MEQ Potassium Chloride (KCl 10% Elixir 20meq/15ml) 20 meq AD PRN PO POTASSIUM PROTOCOL 01/13/25 15:30 02/12/25 15:29 Sodium Chloride 1,000 ml @ 50 mls/hr Q20H IV 01/13/25 14:30 02/12/25 14:29 01/17/25 17:33 50 MLS/HR Sucralfate (Carafate) 1 gm HS PO 01/13/25 21:00 02/12/25 20:59 01/17/25 20:59 1 GM Tiotropium Candia (Spiriva) 18 mcg DAILY IH 01/14/25 09:00 01/13/25 15:57 DC Trazodone HCl (DesyREL/OlepTRO) 50 mg HS PO 01/13/25 21:00 02/12/25 20:59 01/17/25 20:59 50 MG Trazodone HCl (DesyREL/OlepTRO) 75 mg HS PO 01/13/25 21:00 01/13/25 14:58 DC Venlafaxine HCl (EffEXOR 75 MG TAB) 75 mg DAILY PO 01/14/25 09:00 01/13/25 19:46 DC Venlafaxine HCl (EffEXOR 75 MG TAB) 150 mg DAILY PO 01/14/25 09:00 02/13/25 08:59 01/18/25 09:17 150 MG DIAGNOSTICS / RADIOLOGY: [ ] ASSESSMENT: Orthostatic hypotension, POA Recurrent syncopal episodes with fall, POA Frailty/debility, POA History of orthostasis, POA History of COPD, POA History of anxiety disorder/ Depression, POA History of mild dementia, POA Hyperlipidemia, POA History of insomnia, POA PLAN: patient remains admitted to the PCU, case discussed with the RN, patient is still with a episodes of orthostatic hypotension, alternating with a episodes of sinus tachycardia with the SVTs in the 150s, evaluated by cartridge gauger, placed on pindolol. If ongoing episodes of SVT and sinus tachycardia consider EP consultation. Results of thyroid ultrasound showing heterogeneous tissue echotexture of both lobes of the thyroid concern for thyroiditis, nodules in both lobes of the thyroid. Clinically and biochemically euthyroid toxic despite mildly low TSH, patient reporting heat intolerance, palpitations and 15 lb weight loss, a.m. cortisol is 21, no evidence of adrenal insufficiency,on methimazole 5 mg p.o. daily. Continue to follow endocrinology input and recommendation. NEURO: Minimize central acting medications as possible. Fall Precautions. Well lighted room through the day and minimize interruptions through the night to prevent acute delirium. PULMONARY: Supplemental 02 as needed BiPAP as necessary, for respiratory distress Titrate Fio2 to keep Spo2 > or = 90% DuoNebs and CPT as needed IS hourly while awake for pulmonary hygiene prn Out of bed to chair as tolerated Maintain aspiration precautions at all times CARDIOVASCULAR: Follow hemodynamics. Vital signs per facility protocol GI & NUTRITION: Continue nutritional support Aspirations precautions Prokinetic agents and laxatives as needed KIDNEYS & ELECTROLYTES: Strict monitoring of intake and output Daily weights Avoid nephrotoxic agents Monitor electrolytes and replace as needed Goal urine output of 30mL/hr or 0.5mL/kg/hr Medications to be dosed according to renal function. Avoid contrast if possible ENDOCRINE: Maintain blood glucose between 100-180 at all times. Insulin sliding scale for blood glucose management Hypoglycemia and hyperglycemia protocol in place INFECTIOUS DISEASE: Trend temperature, WBC and procalcitonin level Follow cultures, deescalate antibiotics as soon as possible. Panculture if new onset fever HEMATOLOGY & COAGULATION: Monitor H&H. Keep Hgb > 7 Transfuse 1 unit of PRBC for Hgb < 7 Transfuse 1 pack of platelets of platelets < 20, 000 Watch for any signs and symptoms of bleeding SKIN: Pressure ulcer prevention per facility protocol Specialty mattress as needed ORTHO/REHAB Continue PT/OT PRN: MEDICATIONS Tylenol 650 mg po every 4 hrs for fever zofran 4 mg IV every 6 hrs for n/v Hydralazine 5 mg IV every 4 hrs systolic pressure > 160 bowel regiment: lactulose 20 gm PO BID PRN constipation Supportive measures: Continue GI and DVT prophylaxis Disposition: Pending improvement in clinical condition All questions answered time spent: > 35 min GIORGI DELEON MD Jan 18, 2025 11:34
--- NOTE | 2025-01-18 13:18 | PN ---
[facility] CARDIOLOGY PROGRESS NOTE Date Patient Seen: Jan 18, 2025 Time of Visit: 13:14 Interval History: [No acute events overnight. Orthostatics continue to be positive. Review of telemetry with no NSVT events overnight, aside from a 2nd pause. 2D echocardiogram LVEF 55-60% with no wall motion or valvular abnormalities. The patient stated her symptoms have significantly improved. The patient will be assessed tomorrow morning by EP for further recommendations Physical Examination: GENERAL: [No acute distress.] HEAD: [Normal with no signs of head trauma.] EYES: [PERRLA, EOMI, conjunctiva and sclera normal.] ENT: [Hearing grossly intact, normal oropharynx.] NECK: [Supple without JVD. There is no tenderness, lymphadenopathy, or masses. No thyromegaly. Normal carotid upstrokes without bruits.] LUNGS: [Clear breath sounds bilaterally. There are right basilar rales one third of the way up the chest. No wheezes, or rhonchi.] HEART: [Normal rate and rhythm. Normal S1 and S2 without mumurs, gallop or rub.] VASC: [Peripheral pulses +2 bilaterally.] ABD: [Bowel sounds normal, soft, nontender, no masses, no organomegaly. No audible bruits.] : [Not examined] LYMPH: [No lymphadenopathy noted.] EXT: [No clubbing, cyanosis or edema.] SKIN: [No rashes or lesions noted.] NEURO: [Awake, alert, and oriented x3. No focal sensory or strength deficits noted.] Laboratory: [ ] Hematology Labs: Test 01/18/25 03:58 Range/Units White Blood Count 7.0 4.8-10.8 K/uL Red Blood Count 4.05 4.00-5.50 MIL/uL Hemoglobin 12.0 12.0-16.0 g/dL Hematocrit 38.0 36-48 % Mean Corpuscular Volume 93.8 79-99 fL Mean Corpuscular Hemoglobin 29.6 27.0-33.0 pg Mean Corpuscular Hemoglobin Concent 31.6 L 32.0-36.0 g/dL Red Cell Distribution Width 13.9 11.0-15.5 % Platelet Count 238 130-400 K/uL Mean Platelet Volume 9.0 7.5-10.5 fL Nucleated Red Blood Cells 0.0 0.0-0.19 % Chemistry Labs: Test 01/18/25 03:58 Range/Units Sodium Level 141 136-145 mmol/L Potassium Level 4.2 3.5-5.1 mmol/L Chloride Level 105 101-111 mmol/L Carbon Dioxide Level 31 21-32 mmol/L Blood Urea Nitrogen 15 7-18 mg/dL Creatinine 0.8 0.5-1.0 mg/dL Glomerular Filtration Rate Calc 77 >90 mL/min Random Glucose 107 H 70-105 mg/dL Total Calcium 8.7 8.5-10.1 mg/dL Magnesium Level 2.10 1.80-2.40 mg/dL Total Bilirubin 0.1 #L 0.2-1.0 mg/dL Aspartate Amino Transf (AST/SGOT) 16 10-37 U/L Alanine Aminotransferase (ALT/SGPT) 16 12-78 U/L Alkaline Phosphatase 183 H 50-136 U/L Total Protein 5.9 L 6.0-8.3 g/dL Albumin 2.7 L 3.5-5.0 g/dL Diagnostics / Radiology: [Copy/Paste Echos/Imaging Report here] Impression and Plan: [#Orthostatic hypotension -orthostatics continue to be positive -overnight telemetry with no events, no SVT noted, aside from a 2second pause -cortisol 1.8 -F/u 2d echo is normal LVEF, no valvular pathology - carotid US: There are calcified plaques in the right bulb and common carotid, proximal internal, and external carotid arteries causing about 20% to 30% diameter stenosis. There are calcified plaques in the left bulb, common carotid, and proximal internal carotid arteries about 20% to 30% diameter stenosis. Bilateral ICA/CCA ratio is more than 2, suggesting 50% to 69% stenosis. --CT head/neck: 1. Calcified plaques in the bilateral common carotid artery and carotid bulbs with 20-25% stenosis at the carotid bulbs. 2. 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 -Tele shows no events -apply compression socks -we will discontinue midodrine at this time Keep checking orthostatics every12 hours, if positive administered 500 mL of normal saline x1 IV Keep on telemetry, monitor/replace electrolytes as needed, strict I's and o's and daily weights Continue pindolol 5 mg every 12 hours The patient will be assessed tomorrow morning by EP for further recommendations We will plan for an outpatient event monitor upon discharge #Hyperthyroid -methimazole started by Endocrinology, -thyroid ultrasound showed a nodule, Primary team was following Scooter gaspar MD ATTESTATION BY PHYSICIAN I have seen and examined the patient, reviewed the above documentation, participated in medical decision making, made necessary modifications, and agree with the treatment plan as documented by my mid-level provider above. MD MAGY Godfrey JAMES R MD Jan 18, 2025 13:17
[2025-01-18] MEDS: NACL IV ONE (13:22)
--- NOTE | 2025-01-18 14:13 | EKG ---
[facility] Test Date: 2025-01-18 Test Time: 14:05:36 Pat Name: ROBERT KING Department: [facility] Room: 202 1 Gender: F Check Inspector: PARRISH : 1950 Requested By: FREEMAN BHATTI Order Number: [id number] Reading MD: Faith Connors Measurements Intervals [place] Rate: 71 P: 80 WV: 164 QRS: 62 QRSD: 66 T: 66 QT: 386 QTc: 419 Interpretive Statements Sinus rhythm with premature atrial complexes Compared to ECG 01/15/2025 09:00:36 Sinus tachycardia no longer present Early repolarization no longer present Electronically Signed On 01-19-2025 12:35:25 CDT by Faith Connors Please click the below link to view image of tracing.
--- NOTE | 2025-01-18 22:47 | PN ---
endocrinology progress note Date of Service: Jan 18, 2025 subjective: she is started on methimazole 5 mg daily. TSH 0.15, t 3 free 2.87 and t 4 free 1.04 am cortisol is pending and rule out adrenal insufficiency. 01/16/25: FINDINGS: The thyroid gland is normal in caliber with heterogenous tissue echotexture. The right thyroid lobe measures 4.4 x 2.4 x 1.3 cm and the left thyroid lobe measures 5.0 x 1.6 x 1.5 cm in the craniocaudal, AP, and transverse dimensions respectively. The isthmus measures 0.40 cm in AP dimension. Right lobe: There is a cystic nodule that measures 1.0 x 1.0 x 1.0 cm at the upper pole (TR1). There is a hypoechoic solid nodule that measures 1.0 x 1.0 x 1.0 cm at the upper pole (TR4). There is a hypoechoic solid nodule that measures 1.0 x 0.3 x 1.0 cm at the upper pole (TR4). There is a hypoechoic solid nodule that measures 0.4 x 0.3 x 0.4 cm at the mid pole (TR4). There is a hypoechoic solid nodule that measures 0.6 x 0.3 x 0.6 cm at the mid pole (TR4). There is a hypoechoic solid nodule that measures 0.4 x 0.3 x 0.4 cm at the lower pole (TR4). There is a hypoechoic solid nodule that measures 1.4 x 1.4 x 1.1 cm at the lower pole (TR5). There is a hypoechoic solid nodule that measures 1.0 x 0.5 x 1.0 cm at the lower pole (TR4). Left lobe: There is a cystic nodule that measures 0.3 x 0.3 x 0.4 cm at the upper pole (TR1). There is a hypoechoic solid nodule that measures 1.0 x 1.1 x 1.0 cm at the upper pole (TR5). There is a hypoechoic solid nodule that measures 1.3 x 1.0 x 1.0 cm at the mid pole (TR4). There is a hypoechoic solid nodule that measures 1.0 x 0.3 x 0.4 cm at the mid pole (TR4). There is a cystic nodule that measures 1.0 x 0.3 x 1.0 cm at the lower pole (TR1). There is a hypoechoic solid nodule that measures 1.3 x 1.0 x 1.0 cm at the lower pole (TR4). No significantly enlarged lymph nodes. IMPRESSION: Heterogenous tissue echotexture of both the lobes of the thyroid, of concern for thyroiditis. Nodules in both lobes of the thyroid. TI-RADS follow up recommendations: TR1: no FNA required TR2: no FNA required TR3: more than or equal to 1.5 cm follow up, more than or equal to 2.5 cm FNA follow up: 1, 3 and 5 years TR4: more than or equal to 1.0 cm follow up, more than or equal to 1.5 cm FNA follow up: 1, 2, 3 and 5 years TR5: more than or equal to 0.5 cm follow up, more than or equal to 1.0 cm FNA annual follow up for up to 5 years PAST MEDICAL HISTORY: History of COPD, dementia, anxiety, peripheral arterial disease, prior history of smoking PAST SURGICAL HISTORY: , history of surgery for abdominal aneurysm, cholecystectomy, prior history of lower extremity surgery for peripheral arterial disease PAST SOCIAL HISTORY: Patient is a resident of [facility] for the past five years, she has been using a wheelchair over the last one one due to recurrent syncopal episodes, needs assistance with IADLs FAMILY HISTORY: Denies major family history of medical conditions, denies any neurologic conditions Allergies: No known drug allergies Home medications: shelter we will be sending list of medications to be reconciled and updated Coded Allergies: No Known Drug Allergies (Unverified Allergy, Unknown, 01/13/25) DIAGNOSTICS / RADIOLOGY: Chest x-ray and CT head without contrast is pending ASSESSMENT: thyrotoxicosis clinically and biochemically thyrotoxic despite mildly low tsh. reports heat intolerance, palpitations, 15 lbs weight loss. TSH 0.15, t 3 free 2.87 and t 4 free 1.04 am cortisol 21, so no evidence of adrenal insufficiency. thyroid nodules thyroid u/s show small thyroid nodules Orthostatic hypotension, POA Recurrent syncopal episodes with fall, POA Frailty/debility, POA History of orthostasis, POA History of COPD, POA History of anxiety disorder/ Depression, POA History of mild dementia, POA Hyperlipidemia, POA History of insomnia, POA PLAN: continue methimazole 5 mg daily and decrease to 2.5 mg as outpatient, if high TSH. repeat thyroid ultrasound in 1 year. follow on TSI. repeat thyroid function in 1 month. Vitals/Labs Vital Signs Date Time Temp Pulse Resp B/P (MAP) Pulse Ox O2 Delivery O2 Flow Rate FiO2 01/18/25 19:24 78 16 N/A Room Air 21 01/18/25 19:00 98.2 110/62 95 01/18/25 09:30 0 Laboratory Tests 01/18/25 03:58 Medications Current Medications Sodium Chloride 1,000 ml @ 50 mls/hr Q20H IV Last administered on 01/18/25at 13:22; Start 01/13/25 at 14:30; Stop 02/12/25 at 14:29 Acetaminophen 650 mg Q6H PRN PO Last administered on 01/18/25at 18:31; Start 01/13/25 at 14:30; Stop 02/12/25 at 14:29 Ondansetron HCl 4 mg Q6H PRN IVP; Start 01/13/25 at 14:30; Stop 02/12/25 at 14:29 Montelukast Sodium 10 mg HS PO Last administered on 01/18/25at 20:43; Start 01/13/25 at 21:00; Stop 02/12/25 at 20:59 Trazodone HCl 75 mg HS PO; Start 01/13/25 at 21:00; Stop 01/13/25 at 14:58; Status DC Venlafaxine HCl 75 mg DAILY PO; Start 01/14/25 at 09:00; Stop 01/13/25 at 19:46; Status DC Atorvastatin Calcium 40 mg HS PO Last administered on 01/18/25at 20:43; Start 01/13/25 at 21:00; Stop 02/12/25 at 20:59 Clonazepam 0.5 mg BID PRN PO; Start 01/13/25 at 14:30; Stop 02/12/25 at 14:29 Albuterol 1 udvial Q6H PRN IH; Start 01/13/25 at 14:30; Stop 01/14/25 at 03:42; Status DC Memantine 5 mg DAILY PO Last administered on 01/18/25at 09:17; Start 01/14/25 at 09:00; Stop 02/13/25 at 08:59 Tiotropium [place] 18 mcg DAILY IH; Start 01/14/25 at 09:00; Stop 01/13/25 at 15:57; Status DC Polyethylene Glycol 17 gm DAILY PRN PO Last administered on 01/18/25at 09:29; Start 01/13/25 at 14:30; Stop 02/12/25 at 14:29 Sodium Chloride 500 ml @ 0 mls/hr ONCE ONCE IV Last administered on 01/13/25at 15:57; Start 01/13/25 at 15:30; Stop 01/13/25 at 15:56; Status DC Potassium Chloride 100 ml @ 100 mls/hr AD PRN IV; Start 01/13/25 at 15:30; Stop 02/12/25 at 15:29 Potassium Chloride 20 meq AD PRN PO; Start 01/13/25 at 15:30; Stop 02/12/25 at 15:29 Potassium Chloride 20 meq AD PRN PO Last administered on 01/17/25at 11:14; Start 01/13/25 at 15:30; Stop 02/12/25 at 15:29 Magnesium Sulfate 50 ml @ 0 mls/hr PROTOCOL IV Last administered on 01/15/25at 06:08; Start 01/13/25 at 15:30; Stop 01/15/25 at 08:39; Status DC Midodrine 5 mg TID PRN PO Last administered on 01/18/25at 03:50; Start 01/13/25 at 16:00; Stop 01/18/25 at 12:02; Status DC Trazodone HCl 50 mg HS PO Last administered on 01/18/25at 20:43; Start 01/13/25 at 21:00; Stop 02/12/25 at 20:59 Folic Acid 1 mg Q24H IV Last administered on 01/18/25at 16:49; Start 01/13/25 at 16:30; Stop 01/18/25 at 16:30; Status DC Hydralazine HCl 10 mg Q6H PRN IV; Start 01/13/25 at 17:30; Stop 02/12/25 at 17:29 Lactic Acid 1 GRAM DAILY TP Last administered on 01/18/25at 09:18; Start 01/14/25 at 09:00; Stop 02/13/25 at 08:59 Neomycin/ Polymyxin/ Bacitracin 1 appl DAILY TP Last administered on 01/18/25at 09:18; Start 01/14/25 at 09:00; Stop 02/13/25 at 08:59 Sucralfate 1 gm HS PO Last administered on 01/18/25at 20:42; Start 01/13/25 at 21:00; Stop 02/12/25 at 20:59 Calcium Carbonate 500 mg DAILY PO Last administered on 01/18/25 09:17; Start 01/14/25 at 09:00; Stop 02/13/25 at 08:59 Artificial Tears TID OP Last administered on 01/18/25at 20:44; Start 01/13/25 at 21:00; Stop 02/12/25 at 20:59 Home Med DAILY PO Last administered on 01/16/25at 09:33; Start 01/14/25 at 09:00; Stop 02/13/25 at 08:59 Diphenhydramine HCl 25 mg HS PRN PO; Start 01/13/25 at 19:30; Stop 02/12/25 at 19:29 Lactobacillus Rhamnosus 1 each DAILY PO Last administered on 01/18/25 09:17; Start 01/14/25 at 09:00; Stop 02/13/25 at 08:59 Melatonin 5 mg HS PO Last administered on 01/18/25at 20:43; Start 01/13/25 at 21:00; Stop 02/12/25 at 20:59 Venlafaxine HCl 150 mg DAILY PO Last administered on 01/18/25at 09:17; Start 01/14/25 at 09:00; Stop 02/13/25 at 08:59 Albuterol Sulfate 2.5 mg Q6H PRN IH; Start 01/14/25 at 04:00; Stop 02/13/25 at 03:59 Ipratropium [place] 0.5 mg [id number] IH Last administered on 01/18/25at 19:22; Start 01/14/25 at 06:00; Stop 02/13/25 at 05:59 Midodrine 2.5 mg DAILY PO Last administered on 01/15/25at 08:41; Start 01/14/25 at 09:00; Stop 01/16/25 at 07:02; Status DC Methimazole 10 mg DAILY PO; Start 01/15/25 at 09:00; Stop 01/14/25 at 12:24; Status DC Methimazole 5 mg DAILY PO Last administered on 01/18/25at 09:17; Start 01/15/25 at 09:00; Stop 02/14/25 at 08:59 Iohexol 75 ml STK-MED ONCE IV; Start 01/14/25 at 13:19; Stop 01/14/25 at 13:20; Status DC Potassium Chloride 100 ml @ 50 mls/hr ONCE ONCE IV Last administered on 01/15/25at 11:33; Start 01/15/25 at 09:00; Stop 01/15/25 at 10:59; Status DC Magnesium Sulfate 50 ml @ 0 mls/hr PROTOCOL IV Last administered on 01/17/25at 12:52; Start 01/15/25 at 09:00; Stop 02/14/25 at 08:59 Midodrine 2.5 mg Q8H5 PO Last administered on 01/17/25at 20:59; Start 01/16/25 at 07:00; Stop 01/18/25 at 12:02; Status DC Pindolol 5 mg ONCE STAT PO Last administered on 01/17/25at 11:46; Start 01/17/25 at 11:29; Stop 01/17/25 at 11:42; Status DC Pindolol 5 mg BID PO Last administered on 01/18/25at 20:43; Start 01/17/25 at 21:00; Stop 02/16/25 at 20:59 Sodium Chloride 594 ml @ 198 mls/hr ONCE ONCE IV Last administered on 01/17/25at 11:44; Start 01/17/25 at 11:30; Stop 01/17/25 at 14:29; Status DC Potassium Chloride 40 meq ONCE ONCE PO Last administered on 01/17/25at 14:17; Start 01/17/25 at 14:00; Stop 01/17/25 at 14:01; Status DC Sodium Chloride 594 ml @ 198 mls/hr ONCE ONCE IV Last administered on 01/18/25at 13:22; Start 01/18/25 at 12:00; Stop 9/7/25 at 14:59; Status DC ULRICH,PRISCILA A MD Jan 18, 2025 22:47
[2025-01-19] VITALS (19 sets, daily range): BP systolic 87–133; BP diastolic 43–80; PULSE 71–90; RESP 16–20; TEMP 98.1–98.7; O2SAT 94–96
--- NOTE | 2025-01-19 03:56 | NUR ---
PT REFUSED 0400 ORTHOSTATIC VS DUE TO BEING TIRED.
[2025-01-19 04:05] LABS: NUCLEATED RED BLOOD CELLS 0.0 % (0.0-0.19); PLATELET COUNT (AUTO) 237.0 K/uL (130-400); RED BLOOD CELL COUNT(AUTO) 3.88 MIL/uL (4.00-5.50); RED CELL DISTRIBUTION WIDTH 13.9 % (11.0-15.5); WHITE BLOOD COUNT (AUTO) 6.1 K/uL (4.8-10.8)
[2025-01-19 04:22] LABS: ASPARTATE AMINOTRANSFERASE 18.0 U/L (10-37); CREATININE 0.7 mg/dL (0.5-1.0); GLOMERULAR FILTR. RATE CALC 91.0 mL/min (>90); GLUCOSE,RANDOM 95.0 mg/dL (70-105); SODIUM SERUM 142.0 mmol/L (136-145); TOTAL PROTEIN, SERUM 5.8 g/dL (6.0-8.3); UREA NITROGEN, BLOOD 17.0 mg/dL (7-18)
[2025-01-19] MEDS ORDERED: PROPAFENONE HCL 150 MG TABLET PO SCH (09:00)
--- NOTE | 2025-01-19 09:04 | CONS ---
HPI: This is a 74-year-old female with a history of chronic obstructive pulmonary disease, peripheral arterial disease status post intervention and hyperlipidemia. She was admitted 01/13/[address] [facility] due to recurrent syncope. She was found to have positive orthostatic vitals during her office visit from 137 dropping to 97 mmHg. She was started on midodrine 5 mg initially as needed then transitioned to 2.5 mg every 8 hours. The midodrine was discontinued yesterday and she was started on pindolol 5 mg twice daily. She developed recurrent atrial tachycardia with ventricular rates from 141 beats per minute up to 189 beats per minute. She is currently in sinus rhythm with heart rates in the 60s to 70s. Atrial tachycardia was initially noted 01/14/2025 with a ventricular rate of 141 beats per minute. She had a recurrent episode on 01/16/2025 with a ventricular rate of 146 beats per minute. On 01/17/2025 she had atrial tachycardia with a ventricular rate of 189 beats per minute. She underwent echocardiogram 01/14/2025 shows an ejection fraction of 55-60% with normal diastolic function, normal-sized left atrium and trivial tricuspid valve regurgitation. She also underwent a CT scan of the head and neck which showed calcified plaques in the bilateral common carotid artery and carotid bulbs with 20-25% stenosis of the carotid bulbs and finish titration to C1 segment of the left internal carotid artery. There was no acute finding of the cerebral vasculature. Thyroid nodules were noted. She subsequently underwent thyroid ultrasound which showed heterogeneous tissue echotexture of both lobes of the thyroid with concern for thyroiditis. Nodules were noted in both lobes. White blood count 6.1, hemoglobin 11.5, hematocrit 36.3, platelets 237, creatinine 0.7, potassium 4.1, magnesium 1.80, alkaline phosphatase 180, AST 18, ALT 17, TSH 0.15, free T4 1.04, free T3 2.87, thyroid stimulating immunoglobulin less than 0.10, and folic acid 1.20, vitamin B12 1027, a.m. cortisol x2 21.8. She has reported dizziness upon standing for some time which eventually progressed to falling and syncope. She recalls 1 syncopal event where she stood up after from the dinner table and fell over her walker. At that point she began using a wheelchair for ambulation. Of note she is a resident of a [facility]. During physical therapy she experience severe shortness or breath with exertion. Recalls having palpitations associated with the syncopal episodes. Patient History: PAST MEDICAL HISTORY: As noted above. SOCIAL HISTORY: She is a resident of a [facility]. SURGICAL HISTORY: Surgery of abdominal aneurysm Cholecystectomy Peripheral arterial disease status post intervention Allergies: Coded Allergies: No Known Drug Allergies (Unverified Allergy, Unknown, 01/13/25) Additional RoS: Negative with the exception of HPI. Vital Signs Vital Signs 01/18/25 01/19/25 20:00 07:33 O2 Flow Rate 0 FiO2 21 Appearance: Well dev, well nourished Eyes: EOM Normal, Normal Conjuctivae/eyelid Ear/Nose/Mouth/Throat: Landmarks WNL Cardiovascular: Regular Rate, Regular Rhythm, No Edema Respiratory: Lungs clear Laboratory Tests Test 01/17/25 11:03 01/18/25 03:58 01/19/25 03:52 Range/Units White Blood Count 7.4 7.0 6.1 4.8-10.8 K/uL Red Blood Count 4.26 4.05 3.88 4.00-5.50 MIL/uL Hemoglobin 12.7 12.0 11.5 12.0-16.0 g/dL Hematocrit 39.0 38.0 36.3 36-48 % Mean Corpuscular Volume 91.5 93.8 93.6 79-99 fL Mean Corpuscular Hemoglobin 29.8 29.6 29.6 27.0-33.0 pg Mean Corpuscular Hemoglobin Concent 32.6 31.6 31.7 32.0-36.0 g/dL Red Cell Distribution Width 13.7 13.9 13.9 11.0-15.5 % Platelet Count 273 238 237 130-400 K/uL Mean Platelet Volume 9.1 9.0 9.4 7.5-10.5 fL Nucleated Red Blood Cells 0.0 0.0 0.0 0.0-0.19 % Sodium Level 143 141 142 136-145 mmol/L Potassium Level 3.3 4.2 4.1 3.5-5.1 mmol/L Chloride Level 105 105 105 101-111 mmol/L Carbon Dioxide Level 34 31 30 21-32 mmol/L Blood Urea Nitrogen 10 15 17 7-18 mg/dL Creatinine 0.6 0.8 0.7 0.5-1.0 mg/dL Glomerular Filtration Rate Calc 94 77 91 >90 mL/min Random Glucose 170 107 95 70-105 mg/dL Total Calcium 8.7 8.7 8.8 8.5-10.1 mg/dL Magnesium Level 1.80 2.10 1.80 1.80-2.40 mg/dL Total Bilirubin 0.2 0.1 0.1 0.2-1.0 mg/dL Aspartate Amino Transf (AST/SGOT) 17 16 18 10-37 U/L Alanine Aminotransferase (ALT/SGPT) 17 16 17 12-78 U/L Alkaline Phosphatase 194 183 180 50-136 U/L Total Protein 6.2 5.9 5.8 6.0-8.3 g/dL Albumin 2.9 2.7 2.7 3.5-5.0 g/dL ASSESSMENT: 1. Orthostatic hypotension. 2. Supraventricular tachycardia. 3. Recurrent syncope. 4. Thyrotoxicosis. 5. Chronic obstructive pulmonary disease. 6. Peripheral arterial disease. 7. Hyperlipidemia. PLAN: Discussed with Dr. Tracy. 1. She was admitted for recurrent syncope felt to be secondary to orthostatic hypotension. She was started on midodrine then transitioned to pindolol. She is hypotensive this morning with positive orthostatic vitals. 2. At this time we will discontinue pindolol. Given the hypotensive readings and history of chronic obstructive pulmonary disease, we prefer not to use a nonselective beta-noelle which may exacerbate her chronic obstructive pulmonary disease symptoms. 3. We will initiate fludrocortisone 0.1 mg once daily. Blood pressure readings of 150/80 acceptable in the setting of orthostatic hypotension. 4. The atrial tachycardia is likely exacerbating her baseline hypotension. We will initiate propafenone 150 mg every 12 hours. 5. We will perform orthostatic vitals this afternoon and again in the morning. 6. Monitor heart rate and rhythm. 7. We will follow the patient. RIA ALLEN Jan 19, 2025 09:03
--- NOTE | 2025-01-19 09:09 | PN ---
[facility] PROGRESS NOTE Date of Service: Jan 19, 2025 Time of Service: 09:06 SUBJECTIVE: [ ] 01/14 patient is seen and examined at bedside, case discussed with the RN, no acute events overnight, blood pressure 125/62, afebrile, saturating normal on room air, patient alert, following commands. Ultrasound carotid artery showing mild intimal thickening bilateral carotid arteries and their branches, plaques as described, bilateral ICA/CCA ratio is more than two, suggesting 50 to 69% stenosis. Recommended CT/MR angiogram. Discussed with the patient. CT angio of the neck has been requested, we will follow. Cardiology input noted and appreciated, monitor orthostatic hypotension, continue IV fluids, echocardiogram, continue compression stockings, continue midodrine 2.5 mg p.o. daily. Follow a.m. cortisol, follow endocrinology input and recommendation. Discussed with the patient. 01/15 patient remains admitted to the PCU, alert oriented x3, no acute events overnight per discussion with the RN. Mildly tachycardic earlier this morning, 12 lead EKG reviewed, atrial tachycardia, heart rate of 104. Echocardiogram showing LVEF 55-60%, normal left ventricular wall motion. CT angio of the neck was done, pending report. Pending thyroid ultrasound report. Discussed with the patient, all questions answered. 01/16 patient remains admitted to the PCU, awake, following commands, denies dizziness, no blurry vision, no chest pain, shortness shortness for breath, no nausea, no vomiting. 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 Cardiology input noted and appreciated, midodrine increased to 2.5 mg p.o. q.8 hours. Endocrinology input noted and appreciated, clinically and biochemically euthyroid toxic despite mildly low TSH, patient reporting heat intolerance, palpitations and 15 lb weight loss, a.m. cortisol is 21, no evidence of adrenal insufficiency, recommended to continue methimazole 5 mg p.o. daily, follow results of thyroid ultrasound. Repeat thyroid function testing one month. Discussed with the patient, in agreement. 01/17 patient remains admitted to the PCU, case discussed with the RN, no acute events overnight, the time of my visit patient comfortably in bed, awake, following commands. Per discussion with the RN, patient had some episodes of orthostasis yesterday, earlier this morning blood pressure 102/65, heart rate of 87, afebrile, saturating normal on room air. Results of thyroid ultrasound showing heterogeneous tissue echotexture of both lobes of the thyroid concern for thyroiditis, nodules in both lobes of the thyroid. Continue with orthostatic vital signs checked throughout the day. Continue with midodrine per Cardiology recommendation. Continue with the methimazole 5 mg p.o. daily per endocrinology consultation. 01/18 patient remains admitted to the PCU, case discussed with the RN, patient is still with a episodes of orthostatic hypotension, alternating with a episodes of sinus tachycardia with the SVTs in the 150s, evaluated by broadcast operations engineer, placed on pindolol. If ongoing episodes of SVT and sinus tachycardia consider EP consultation. Results of thyroid ultrasound showing heterogeneous tissue echotexture of both lobes of the thyroid concern for thyroiditis, nodules in both lobes of the thyroid. Clinically and biochemically euthyroid toxic despite mildly low TSH, patient reporting heat intolerance, palpitations and 15 lb weight loss, a.m. cortisol is 21, no evidence of adrenal insufficiency,on methimazole 5 mg p.o. daily. Continue to follow endocrinology input and barbie mmendation. 01/19/25 PATIENT IS LYING IN BED PATIENT CONTINUES TO WORK WITH PHYSICAL THERAPY. ELECTROLYTES WERE LOW THIS MORNING BEING CORRECTED PER PROTOCOL. CONTINUES ORTHOSTATIC HYPOTENSIVE IS BEING FOLLOWED BY EP [employer]ET[employer] INTERN'S WE WILL FOLLOW THE RECOMMENDATIONS. PATIENT WILL BE TRANSITIONED BACK TO [facility]. ONCE CLEARED BY BRAND MARKETING INTERN'S AND NETWORK SECURITY ARCHITECT. REVIEW OF SYSTEMS CONSTITUTIONAL: Denies fevers, chills, or night sweats. Reports having decreased appetite NEUROLOGICAL: Denies headache, amaurosis fugax, motor weakness, sensory deficit, vertigo/spinning sensation, gait abnormalities, or tremors. ENT: No hearing loss, otalgia, otorrhea, rhinitis, rhinorrhea, hoarseness, or sore throat. CARDIOVASCULAR: reports having recurrent syncopal episodes ongoing for the past one and a half month. PULMONARY: Denies any shortness of breath, cough, phlegm/sputum, hemoptysis, pleuritic chest pain. SLEEP: Denies morning headaches, daytime somnolence or napping. Denies difficulty falling asleep, staying asleep, waking from sleep. Denies knowledge of snoring. GASTROINTESTINAL: Denies any type of dysphagia to either liquids or solids. Denies nausea, vomiting, pyrosis, early satiety, abdominal pain, diarrhea, constipation, or changes in stool consistency or caliber. Denies coffee-ground emesis, hematemesis, hematochezia, or melanotic stools. GENITOURINARY: Denies frequency, urgency, nocturia, hematuria or incontinence (Storage/Irritative symptoms.) Low urinary stream, straining to void, urinary intermittency or hesitancy, splitting of the voiding stream, terminal dribbling. ENDOCRINOLOGIC: Denies polyuria, polydipsia, polyphagia or heat/cold intolerances. HEMATOLOGIC: Denies thrombophilia/previous clots, or coagulopathy/bleeding disorders. ONCOLOGIC: Denies personal history of malignancy. DERMATOLOGIC: Denies rashes or pruritus. PSYCHIATRIC: Denies any suicidal or homicidal ideation. Denies hallucinations. PHYSICAL EXAM GENERAL APPEARANCE: The patient is awake, alert, appears frail and elderly NEUROLOGICAL: Cranial nerves II-XII grossly intact. Motor is 5/5 in bilateral upper and lower extremities proximal to distal. No sensory deficits. HEENT: Face is symmetric. Pupils are equal and reactive. Extraocular movements are intact. NECK: Supple. No JVD. No thyromegaly. No submental, submandibular, pre- /postauricular, occipital or supraclavicular lymphadenopathy. CHEST: Normal chest expansion. No Telemetry. LUNGS: Absence of any rales, rhonchi or any wheezing. CARDIOVASCULAR: Regular. S1 and S2 normal. No appreciable rubs, murmurs or gallops. ABDOMEN: Soft, nontender, and nondistended. There is no rebound, voluntary guarding, or rigidity. : Deferred. No Nixon. EXTREMITIES: Non-edematous and not cyanotic. No clubbing. Good capillary refill. SKIN: Open wound noted to the right elbow with skin tear, multiple abrasions noted of the upper and lower extremity Vital Signs (last 8hr) Date Time Temp Pulse Resp B/P (MAP) Pulse Ox O2 Delivery O2 Flow Rate FiO2 01/19/25 08:00 98.6 87 18 88/56 98 Room Air 01/19/25 08:00 98.6 90 18 99/52 98 Room Air 01/19/25 07:59 98.6 77 18 115/58 99 Room Air 01/19/25 07:33 72 16 N/A Room Air 21 01/19/25 07:31 72 18 01/19/25 03:00 98.8 71 18 106/46 98 Room Air 01/19/25 03:00 98.6 80 18 113/53 98 Room Air LABS: Laboratory: Test 01/19/25 03:52 Range/Units White Blood Count 6.1 4.8-10.8 K/uL Red Blood Count 3.88 L 4.00-5.50 MIL/uL Hemoglobin 11.5 L 12.0-16.0 g/dL Hematocrit 36.3 36-48 % Mean Corpuscular Volume 93.6 79-99 fL Mean Corpuscular Hemoglobin 29.6 27.0-33.0 pg Mean Corpuscular Hemoglobin Concent 31.7 L 32.0-36.0 g/dL Red Cell Distribution Width 13.9 11.0-15.5 % Platelet Count 237 130-400 K/uL Mean Platelet Volume 9.4 7.5-10.5 fL Nucleated Red Blood Cells 0.0 0.0-0.19 % Sodium Level 142 136-145 mmol/L Potassium Level 4.1 3.5-5.1 mmol/L Chloride Level 105 101-111 mmol/L Carbon Dioxide Level 30 21-32 mmol/L Blood Urea Nitrogen 17 7-18 mg/dL Creatinine 0.7 0.5-1.0 mg/dL Glomerular Filtration Rate Calc 91 >90 mL/min Random Glucose 95 70-105 mg/dL Total Calcium 8.8 8.5-10.1 mg/dL Magnesium Level 1.80 1.80-2.40 mg/dL Total Bilirubin 0.1 L 0.2-1.0 mg/dL Aspartate Amino Transf (AST/SGOT) 18 10-37 U/L Alanine Aminotransferase (ALT/SGPT) 17 12-78 U/L Alkaline Phosphatase 180 H 50-136 U/L Total Protein 5.8 L 6.0-8.3 g/dL Albumin 2.7 L 3.5-5.0 g/dL Current Medications Medications (Trade) Dose Ordered Sig/Garry Route PRN Reason Start Time Stop Time Status Last Admin Dose Admin Acetaminophen (TYLenol 325MG TAB) 650 mg Q6H PRN PO MILD PAIN (1-3) 01/13/25 14:30 02/12/25 14:29 01/18/25 18:31 650 MG Albuterol (DUOneb) 1 udvial Q6H PRN IH SHORTNESS OF BREATH 01/13/25 14:30 01/14/25 03:42 DC Albuterol Sulfate (Proventil 0.083% 2.5mg/3ml) 2.5 mg Q6H PRN IH SHORTNESS OF BREATH 01/14/25 04:00 02/13/25 03:59 Artificial Tears (Artificial Tears) TID OP 01/13/25 21:00 02/12/25 20:59 01/18/25 20:44 1 DROP Atorvastatin Calcium (LIPItor 40MG) 40 mg HS PO 01/13/25 21:00 02/12/25 20:59 01/18/25 20:43 40 MG Calcium Carbonate (Oyster Shell Ca 500mg Tab) 500 mg DAILY PO 01/14/25 09:00 02/13/25 08:59 01/18/25 09:17 500 MG Clonazepam (clonazePAM 0.5 mg) 0.5 mg BID PRN PO anxiety 01/13/25 14:30 02/12/25 14:29 Diphenhydramine HCl (BENAdryl CAP) 25 mg HS PRN PO ITCHING 01/13/25 19:30 02/12/25 19:29 Enoxaparin Sodium (Lovenox) 30 mg HS SQ 01/19/25 21:00 02/18/25 20:59 Fludrocortisone Acetate (Fludrocortisone Acetate) 0.1 mg DAILY PO 01/19/25 09:00 02/18/25 08:59 Folic Acid (FolVITE 5 MG/ML VIAL) 1 mg Q24H IV 01/13/25 16:30 01/18/25 16:30 DC 01/18/25 16:49 1 MG Home Med (Home Medication) DAILY PO 01/14/25 09:00 02/13/25 08:59 01/16/25 09:33 1 EACH Hydralazine HCl (APRESOLine 20MG INJ) 10 mg Q6H PRN IV ADMINISTER FOR SBP > 180 01/13/25 17:30 02/12/25 17:29 Ipratropium Ciales (AtrovENT UD) 0.5 mg [id number] IH 01/14/25 06:00 02/13/25 05:59 01/19/25 07:31 0.5 MG Lactic Acid (Lachydrin 226gm Lotion) 1 GRAM DAILY TP 01/14/25 09:00 02/13/25 08:59 01/18/25 09:18 1 GM Lactobacillus Rhamnosus ([facility] [employer]) 1 each DAILY PO 01/14/25 09:00 02/13/25 08:59 01/18/25 09:17 1 EACH Magnesium Sulfate 50 ml @ 0 mls/hr PROTOCOL IV 01/13/25 15:30 01/15/25 08:39 DC 01/15/25 06:08 25 MLS/HR Magnesium Sulfate 50 ml @ 0 mls/hr PROTOCOL IV 01/15/25 09:00 02/14/25 08:59 01/17/25 12:52 25 MLS/HR Melatonin (Melatonin) 5 mg HS PO 01/13/25 21:00 02/12/25 20:59 01/18/25 20:43 5 MG Memantine (NAmenDA 5 MG TAB) 5 mg DAILY PO 01/14/25 09:00 02/13/25 08:59 01/18/25 09:17 5 MG Methimazole (tapaZOLE) 5 mg DAILY PO 01/15/25 09:00 02/14/25 08:59 01/18/25 09:17 5 MG Methimazole (tapaZOLE) 10 mg DAILY PO 01/15/25 09:00 01/14/25 12:24 DC Midodrine (PROAMatine 5 MG TABLET) 2.5 mg DAILY PO 01/14/25 09:00 01/16/25 07:02 DC 01/15/25 08:41 2.5 MG Midodrine (PROAMatine 5 MG TABLET) 2.5 mg Q8H5 PO 01/16/25 07:00 01/18/25 12:02 DC 01/17/25 20:59 2.5 MG Midodrine (PROAMatine 5 MG TABLET) 5 mg TID PRN PO for BP less than 90/60 01/13/25 16:00 01/18/25 12:02 DC 01/18/25 03:50 5 MG Montelukast Sodium (SinguLAIR) 10 mg HS PO 01/13/25 21:00 02/12/25 20:59 01/18/25 20:43 10 MG Neomycin/ Polymyxin/ Bacitracin (Triple Antibiotic Ointment) 1 appl DAILY TP 01/14/25 09:00 02/13/25 08:59 01/18/25 09:18 1 APPL Ondansetron HCl (zoFRAN 4MG INJ) 4 mg Q6H PRN IVP NAUSEA/VOMITING 01/13/25 14:30 02/12/25 14:29 Pindolol (Visken) 5 mg BID PO 01/17/25 21:00 01/19/25 08:44 DC 01/18/25 20:43 5 MG Pindolol (Visken) 5 mg ONCE STAT PO 01/17/25 11:29 01/17/25 11:42 DC 01/17/25 11:46 5 MG Polyethylene Glycol (MIRalax 3350 17 GM POWD.PACK) 17 gm DAILY PRN PO constipation 01/13/25 14:30 02/12/25 14:29 01/18/25 09:29 17 GM Potassium Chloride 100 ml @ 100 mls/hr AD PRN IV POTASSIUM PROTOCOL 01/13/25 15:30 02/12/25 15:29 Potassium Chloride (K-Dur/Klor-Con 20meq) 20 meq AD PRN PO POTASSIUM PROTOCOL 01/13/25 15:30 02/12/25 15:29 01/17/25 11:14 20 MEQ Potassium Chloride (KCl 10% Elixir 20meq/15ml) 20 meq AD PRN PO POTASSIUM PROTOCOL 01/13/25 15:30 02/12/25 15:29 Propafenone HCl (Rythmol) 75 mg Q8H PO 01/19/25 09:00 02/18/25 08:59 Sodium Chloride 1,000 ml @ 50 mls/hr Q20H IV 01/13/25 14:30 02/12/25 14:29 01/18/25 13:22 50 MLS/HR Sucralfate (Carafate) 1 gm HS PO 01/13/25 21:00 02/12/25 20:59 01/18/25 20:42 1 GM Tiotropium Ciales (Spiriva) 18 mcg DAILY IH 01/14/25 09:00 01/13/25 15:57 DC Trazodone HCl (DesyREL/OlepTRO) 50 mg HS PO 01/13/25 21:00 02/12/25 20:59 01/18/25 20:43 50 MG Trazodone HCl (DesyREL/OlepTRO) 75 mg HS PO 01/13/25 21:00 01/13/25 14:58 DC Venlafaxine HCl (EffEXOR 75 MG TAB) 75 mg DAILY PO 01/14/25 09:00 01/13/25 19:46 DC Venlafaxine HCl (EffEXOR 75 MG TAB) 150 mg DAILY PO 01/14/25 09:00 02/13/25 08:59 01/18/25 09:17 150 MG DIAGNOSTICS / RADIOLOGY: [ ] ASSESSMENT: Orthostatic hypotension, POA Recurrent syncopal episodes with fall, POA Frailty/debility, POA History of orthostasis, POA History of COPD, POA History of anxiety disorder/ Depression, POA History of mild dementia, POA Hyperlipidemia, POA History of insomnia, POA PLAN: patient remains admitted to the PCU, case discussed with the RN, patient is still with a episodes of orthostatic hypotension, alternating with a episodes of sinus tachycardia with the SVTs in the 150s, evaluated by broadcast operations engineer, placed on pindolol. If ongoing episodes of SVT and sinus tachycardia EP consultation TODAY WILL FOLLOW RECOMMENDATIONS. Results of thyroid ultrasound showing heterogeneous tissue echotexture of both lobes of the thyroid concern for thyroiditis, nodules in both lobes of the thyroid. no evidence of adrenal insufficiency,on methimazole 5 mg p.o. daily. Continue to follow endocrinology input and recommendation. NEURO: Minimize central acting medications as possible. Fall Precautions. Well lighted room through the day and minimize interruptions through the night to prevent acute delirium. PULMONARY: Supplemental 02 as needed BiPAP as necessary, for respiratory distress Titrate Fio2 to keep Spo2 > or = 90% DuoNebs and CPT as needed IS hourly while awake for pulmonary hygiene prn Out of bed to chair as tolerated Maintain aspiration precautions at all times CARDIOVASCULAR: Follow hemodynamics. Vital signs per facility protocol GI & NUTRITION: Continue nutritional support Aspirations precautions Prokinetic agents and laxatives as needed KIDNEYS & ELECTROLYTES: Strict monitoring of intake and output Daily weights Avoid nephrotoxic agents Monitor electrolytes and replace as needed Goal urine output of 30mL/hr or 0.5mL/kg/hr Medications to be dosed according to renal function. Avoid contrast if possible ENDOCRINE: Maintain blood glucose between 100-180 at all times. Insulin sliding scale for blood glucose management Hypoglycemia and hyperglycemia protocol in place INFECTIOUS DISEASE: Trend temperature, WBC and procalcitonin level Follow cultures, deescalate antibiotics as soon as possible. Panculture if new onset fever HEMATOLOGY & COAGULATION: Monitor H&H. Keep Hgb > 7 Transfuse 1 unit of PRBC for Hgb < 7 Transfuse 1 pack of platelets of platelets < 20, 000 Watch for any signs and symptoms of bleeding SKIN: Pressure ulcer prevention per facility protocol Specialty mattress as needed ORTHO/REHAB Continue PT/OT PRN: MEDICATIONS Tylenol 650 mg po every 4 hrs for fever zofran 4 mg IV every 6 hrs for n/v Hydralazine 5 mg IV every 4 hrs systolic pressure > 160 bowel regiment: lactulose 20 gm PO BID PRN constipation Supportive measures: Continue GI and DVT prophylaxis Disposition: Pending improvement in clinical condition All questions answered time spent: > 35 min ATTESTATION BY PHYSICIAN I have seen and examined the patient. I reviewed the documentation, medical decision making, and treatment plan as noted by the mid-level provider above. I agree with the findings and plan of care. Katia Castañeda MD, ELIZABETH NP Jan 19, 2025 09:09
[2025-01-19] MEDS: FLUDROCORTISONE ACETATE 0.1 MG TABLET PO SCH (09:20)
[2025-01-19] MEDS: PROPAFENONE HCL 150 MG TABLET PO SCH (09:21)
[2025-01-19 12:14] LABS: IMMATURE GRANULOCYTE ABSOLUTE 0.02 K/uL (0-1); NUCLEATED RED BLOOD CELLS 0.0 % (0.0-0.19); PLATELET COUNT (AUTO) 248 K/uL (130-400); RED BLOOD CELL COUNT(AUTO) 3.98 MIL/uL (4.00-5.50); RED CELL DISTRIBUTION WIDTH 14.2 % (11.0-15.5); WHITE BLOOD COUNT (AUTO) 6.7 K/uL (4.8-10.8)
--- NOTE | 2025-01-19 21:38 | PN ---
endocrinology progress note Date of Service: Jan 19, 2025 subjective: she is started on methimazole 5 mg daily. cardiology following for arrhythmia and hypotension. TSH 0.15, t 3 free 2.87 and t 4 free 1.04 am cortisol is 21 and no evidence of adrenal insufficiency. 01/16/25: FINDINGS: The thyroid gland is normal in caliber with heterogenous tissue echotexture. The right thyroid lobe measures 4.4 x 2.4 x 1.3 cm and the left thyroid lobe measures 5.0 x 1.6 x 1.5 cm in the craniocaudal, AP, and transverse dimensions respectively. The isthmus measures 0.40 cm in AP dimension. Right lobe: There is a cystic nodule that measures 1.0 x 1.0 x 1.0 cm at the upper pole (TR1). There is a hypoechoic solid nodule that measures 1.0 x 1.0 x 1.0 cm at the upper pole (TR4). There is a hypoechoic solid nodule that measures 1.0 x 0.3 x 1.0 cm at the upper pole (TR4). There is a hypoechoic solid nodule that measures 0.4 x 0.3 x 0.4 cm at the mid pole (TR4). There is a hypoechoic solid nodule that measures 0.6 x 0.3 x 0.6 cm at the mid pole (TR4). There is a hypoechoic solid nodule that measures 0.4 x 0.3 x 0.4 cm at the lower pole (TR4). There is a hypoechoic solid nodule that measures 1.4 x 1.4 x 1.1 cm at the lower pole (TR5). There is a hypoechoic solid nodule that measures 1.0 x 0.5 x 1.0 cm at the lower pole (TR4). Left lobe: There is a cystic nodule that measures 0.3 x 0.3 x 0.4 cm at the upper pole (TR1). There is a hypoechoic solid nodule that measures 1.0 x 1.1 x 1.0 cm at the upper pole (TR5). There is a hypoechoic solid nodule that measures 1.3 x 1.0 x 1.0 cm at the mid pole (TR4). There is a hypoechoic solid nodule that measures 1.0 x 0.3 x 0.4 cm at the mid pole (TR4). There is a cystic nodule that measures 1.0 x 0.3 x 1.0 cm at the lower pole (TR1). There is a hypoechoic solid nodule that measures 1.3 x 1.0 x 1.0 cm at the lower pole (TR4). No significantly enlarged lymph nodes. IMPRESSION: Heterogenous tissue echotexture of both the lobes of the thyroid, of concern for thyroiditis. Nodules in both lobes of the thyroid. TI-RADS follow up recommendations: TR1: no FNA required TR2: no FNA required TR3: more than or equal to 1.5 cm follow up, more than or equal to 2.5 cm FNA follow up: 1, 3 and 5 years TR4: more than or equal to 1.0 cm follow up, more than or equal to 1.5 cm FNA follow up: 1, 2, 3 and 5 years TR5: more than or equal to 0.5 cm follow up, more than or equal to 1.0 cm FNA annual follow up for up to 5 years PAST MEDICAL HISTORY: History of COPD, dementia, anxiety, peripheral arterial disease, prior history of smoking PAST SURGICAL HISTORY: , history of surgery for abdominal aneurysm, cholecystectomy, prior history of lower extremity surgery for peripheral arterial disease PAST SOCIAL HISTORY: Patient is a resident of [facility] rehab for the past five years, she has been using a wheelchair over the last one one due to recurrent syncopal episodes, needs assistance with IADLs FAMILY HISTORY: Denies major family history of medical conditions, denies any neurologic conditions Allergies: No known drug allergies Home medications: longterm we will be sending list of medications to be reconciled and updated Coded Allergies: No Known Drug Allergies (Unverified Allergy, Unknown, 01/13/25) DIAGNOSTICS / RADIOLOGY: Chest x-ray and CT head without contrast is pending ASSESSMENT: thyrotoxicosis clinically and biochemically thyrotoxic despite mildly low tsh. reports heat intolerance, palpitations, 15 lbs weight loss. TSH 0.15, t 3 free 2.87 and t 4 free 1.04 am cortisol 21, so no evidence of adrenal insufficiency. thyroid nodules thyroid u/s show small thyroid nodules Orthostatic hypotension, POA Recurrent syncopal episodes with fall, POA Frailty/debility, POA History of orthostasis, POA History of COPD, POA History of anxiety disorder/ Depression, POA History of mild dementia, POA Hyperlipidemia, POA History of insomnia, POA PLAN: continue methimazole 5 mg daily and decrease to 2.5 mg as outpatient, if high TSH. repeat thyroid ultrasound in 1 year. follow on TSI. repeat thyroid function in 1 month. Vitals/Labs Vital Signs Date Time Temp Pulse Resp B/P (MAP) Pulse Ox O2 Delivery O2 Flow Rate FiO2 01/19/25 19:41 76 18 N/A Room Air 21 01/19/25 16:37 87/43 95 01/19/25 16:35 98.2 01/19/25 13:13 0 Laboratory Tests 01/19/25 03:52 01/19/25 12:07 Medications Current Medications Sodium Chloride 1,000 ml @ 50 mls/hr Q20H IV Last administered on 01/19/25at 09:33; Start 01/13/25 at 14:30; Stop 02/12/25 at 14:29 Acetaminophen 650 mg Q6H PRN PO Last administered on 01/18/25at 18:31; Start 01/13/25 at 14:30; Stop 02/12/25 at 14:29 Ondansetron HCl 4 mg Q6H PRN IVP; Start 01/13/25 at 14:30; Stop 02/12/25 at 14:29 Montelukast Sodium 10 mg HS PO Last administered on 01/18/25at 20:43; Start 01/13/25 at 21:00; Stop 02/12/25 at 20:59 Trazodone HCl 75 mg HS PO; Start 01/13/25 at 21:00; Stop 01/13/25 at 14:58; Status DC Venlafaxine HCl 75 mg DAILY PO; Start 01/14/25 at 09:00; Stop 01/13/25 at 19:46; Status DC Atorvastatin Calcium 40 mg HS PO Last administered on 01/18/25at 20:43; Start 01/13/25 at 21:00; Stop 02/12/25 at 20:59 Clonazepam 0.5 mg BID PRN PO; Start 01/13/25 at 14:30; Stop 02/12/25 at 14:29 Albuterol 1 udvial Q6H PRN IH; Start 01/13/25 at 14:30; Stop 01/14/25 at 03:42; Status DC Memantine 5 mg DAILY PO Last administered on 01/19/25at 09:20; Start 01/14/25 at 09:00; Stop 02/13/25 at 08:59 Tiotropium [place] 18 mcg DAILY IH; Start 01/14/25 at 09:00; Stop 01/13/25 at 15:57; Status DC Polyethylene Glycol 17 gm DAILY PRN PO Last administered on 01/18/25at 09:29; Start 01/13/25 at 14:30; Stop 02/12/25 at 14:29 Sodium Chloride 500 ml @ 0 mls/hr ONCE ONCE IV Last administered on 01/13/25at 15:57; Start 01/13/25 at 15:30; Stop 01/13/25 at 15:56; Status DC Potassium Chloride 100 ml @ 100 mls/hr AD PRN IV; Start 01/13/25 at 15:30; Stop 02/12/25 at 15:29 Potassium Chloride 20 meq AD PRN PO; Start 01/13/25 at 15:30; Stop 02/12/25 at 15:29 Potassium Chloride 20 meq AD PRN PO Last administered on 01/17/25at 11:14; Start 01/13/25 at 15:30; Stop 02/12/25 at 15:29 Magnesium Sulfate 50 ml @ 0 mls/hr PROTOCOL IV Last administered on 01/15/25at 06:08; Start 01/13/25 at 15:30; Stop 01/15/25 at 08:39; Status DC Midodrine 5 mg TID PRN PO Last administered on 01/18/25at 03:50; Start 01/13/25 at 16:00; Stop 01/18/25 at 12:02; Status DC Trazodone HCl 50 mg HS PO Last administered on 01/18/25at 20:43; Start 01/13/25 at 21:00; Stop 02/12/25 at 20:59 Folic Acid 1 mg Q24H IV Last administered on 01/18/25at 16:49; Start 01/13/25 at 16:30; Stop 01/18/25 at 16:30; Status DC Hydralazine HCl 10 mg Q6H PRN IV; Start 01/13/25 at 17:30; Stop 02/12/25 at 17:29 Lactic Acid 1 GRAM DAILY TP Last administered on 01/19/25at 09:24; Start 01/14/25 at 09:00; Stop 02/13/25 at 08:59 Neomycin/ Polymyxin/ Bacitracin 1 appl DAILY TP Last administered on 01/18/25at 09:18; Start 01/14/25 at 09:00; Stop 02/13/25 at 08:59 Sucralfate 1 gm HS PO Last administered on 01/18/25at 20:42; Start 01/13/25 at 21:00; Stop 02/12/25 at 20:59 Calcium Carbonate 500 mg DAILY PO Last administered on 01/19/25at 09:21; Start 01/14/25 at 09:00; Stop 02/13/25 at 08:59 Artificial Tears TID OP Last administered on 01/19/25at 14:00; Start 01/13/25 at 21:00; Stop 02/12/25 at 20:59 Home Med DAILY PO Last administered on 01/16/25at 09:33; Start 01/14/25 at 09:00; Stop 02/13/25 at 08:59 Diphenhydramine HCl 25 mg HS PRN PO; Start 01/13/25 at 19:30; Stop 02/12/25 at 19:29 Lactobacillus Rhamnosus 1 each DAILY PO Last administered on 01/19/25at 09:21; Start 01/14/25 at 09:00; Stop 02/13/25 at 08:59 Melatonin 5 mg HS PO Last administered on 01/18/25at 20:43; Start 01/13/25 at 21:00; Stop 02/12/25 at 20:59 Venlafaxine HCl 150 mg DAILY PO Last administered on 01/19/25at 09:21; Start 01/14/25 at 09:00; Stop 02/13/25 at 08:59 Albuterol Sulfate 2.5 mg Q6H PRN IH; Start 01/14/25 at 04:00; Stop 02/13/25 at 03:59 Ipratropium [place] 0.5 mg [id number] IH Last administered on 01/19/25at 19:25; Start 01/14/25 at 06:00; Stop 02/13/25 at 05:59 Midodrine 2.5 mg DAILY PO Last administered on 01/15/25at 08:41; Start 01/14/25 at 09:00; Stop 01/16/25 at 07:02; Status DC Methimazole 10 mg DAILY PO; Start 01/15/25 at 09:00; Stop 01/14/25 at 12:24; Status DC Methimazole 5 mg DAILY PO Last administered on 01/19/25at 09:21; Start 01/15/25 at 09:00; Stop 02/14/25 at 08:59 Iohexol 75 ml STK-MED ONCE IV; Start 01/14/25 at 13:19; Stop 01/14/25 at 13:20; Status DC Potassium Chloride 100 ml @ 50 mls/hr ONCE ONCE IV Last administered on 01/15/25at 11:33; Start 01/15/25 at 09:00; Stop 01/15/25 at 10:59; Status DC Magnesium Sulfate 50 ml @ 0 mls/hr PROTOCOL IV Last administered on 01/19/25at 12:29; Start 01/15/25 at 09:00; Stop 02/14/25 at 08:59 Midodrine 2.5 mg Q8H5 PO Last administered on 01/17/25at 20:59; Start 01/16/25 at 07:00; Stop 01/18/25 at 12:02; Status DC Pindolol 5 mg ONCE STAT PO Last administered on 01/17/25at 11:46; Start 01/17/25 at 11:29; Stop 01/17/25 at 11:42; Status DC Pindolol 5 mg BID PO Last administered on 01/18/25at 20:43; Start 01/17/25 at 21:00; Stop 01/19/25 at 08:44; Status DC Sodium Chloride 594 ml @ 198 mls/hr ONCE ONCE IV Last administered on 01/17/25at 11:44; Start 01/17/25 at 11:30; Stop 01/17/25 at 14:29; Status DC Potassium Chloride 40 meq ONCE ONCE PO Last administered on 01/17/25at 14:17; Start 01/17/25 at 14:00; Stop 01/17/25 at 14:01; Status DC Sodium Chloride 594 ml @ 198 mls/hr ONCE ONCE IV Last administered on 01/18/25at 13:22; Start 01/18/25 at 12:00; Stop 01/18/25 at 14:59; Status DC Propafenone HCl 75 mg Q8H PO; Start 01/19/25 at 09:00; Stop 01/19/25 at 09:09; Status DC Fludrocortisone Acetate 0.1 mg DAILY PO Last administered on 01/19/25at 09:20; Start 01/19/25 at 09:00; Stop 02/18/25 at 08:59 Enoxaparin Sodium 30 mg HS SQ; Start 01/19/25 at 21:00; Stop 02/18/25 at 20:59 Propafenone HCl 150 mg BID PO Last administered on 01/19/25at 09:21; Start 01/19/25 at 09:30; Stop 02/18/25 at 08:59 PRISCILA ULRICH MD Jan 19, 2025 21:38
[2025-01-19] MEDS: ENOXAPARIN SODIUM 30 MG/0.3 ML SQ SCH (21:40)
[2025-01-20] VITALS (15 sets, daily range): BP systolic 10–129; BP diastolic 50–77; PULSE 50–123; RESP 16–20; TEMP 98–98.6; O2SAT 94–96
[2025-01-20 04:49] LABS: CREATININE 0.7 mg/dL (0.5-1.0); GLOMERULAR FILTR. RATE CALC 91.0 mL/min (>90); GLUCOSE,RANDOM 98.0 mg/dL (70-105); SODIUM SERUM 142.0 mmol/L (136-145); UREA NITROGEN, BLOOD 18.0 mg/dL (7-18)
[2025-01-20] MEDS ORDERED: FLUD.1 PO (08:25)
[2025-01-20] MEDS ORDERED: PROP150T11 PO (08:25)
--- NOTE | 2025-01-20 08:39 | PN ---
This is a 74-year-old female with a history of chronic obstructive pulmonary disease, peripheral arterial disease status post intervention and hyperlipidemia. She was admitted 01/13/2025 from [facility] due to recurrent syncope secondary to orthostatic hypotension. She developed recurrent atrial tachycardia with ventricular rates in the 140s to 180s. She has an ejection fraction of 55-60% on echocardiogram 01/14/2025. On yesterday she was started on fludrocortisone 0.1 mg once daily for management of orthostatic hypotension and propafenone 150 mg twice daily for management of atrial tachycardia. Orthostatic vitals performed yesterday afternoon at 4:30 p.m. for as follows: Supine 120/60, standing 1 minute 87/43. She was unable to complete the 3 minutes of standing due to weakness. Overnight at 4:00 a.m. she underwent repeat orthostatic vitals as follows: Supine 124/61, standing 1 minute 129/77, standing 3 minutes 103/50. She is currently in sinus rhythm with heart rates in the 60s to 80s. There are no episodes of atrial tachycardia noted since 01/17/2025. Creatinine 0.7, potassium 4.7, magnesium 2.10. She is doing well this morning. She denies dizziness, lightheadedness or shortness or breath. She ambulated with physical therapy yesterday and states that she did not experience dizziness or shortness or breath. On exam, she is in no acute distress, regular rate and rhythm, lungs are clear to auscultation bilaterally, no lower extremity edema is noted. ASSESSMENT: 1. Orthostatic hypotension. 2. Supraventricular tachycardia. 3. Recurrent syncope. 4. Thyrotoxicosis. 5. Chronic obstructive pulmonary disease. 6. Peripheral arterial disease. 7. Hyperlipidemia. PLAN: Discussed with Dr. Tracy. 1. She was started on fludrocortisone 0.1 mg once daily for management of orthostatic hypotension. Initial orthostatic vitals performed at 4:00 p.m. yesterday showed a 33 point drop in his systolic blood pressure. Repeat orthostatic vitals at 4:00 a.m. this morning showed a 21 point drop in her systolic blood pressure. She has symptomatic improvement with ambulation. 2. We will continue fludrocortisone 0.1 mg once daily. Fludrocortisone can be further titrated as an outpatient if necessary. 3. Regarding the atrial tachycardia, we will continue propafenone 150 mg twice daily. We will plan for outpatient agile scrum master to assess her response to propafenone. Further adjustments will be made as an outpatient. 4. She is cleared to be discharged to intermediate facility from an electrophysiology standpoint. Recommend physical therapy to focus on core and leg strengthening, as well as fall prevention. The head of her bed should be elevated to 30 at all times. We also recommend daily use of compression stockings, thigh-high preferred. 5. We will schedule a follow-up visit with Dr. Tracy in two weeks. We will arrange an outpatient agile scrum master at that time. Vitals/Labs Vital Signs Date Time Temp Pulse Resp B/P (MAP) Pulse Ox O2 Delivery O2 Flow Rate FiO2 01/20/25 07:18 76 18 N/A Room Air 21 01/20/25 04:04 103/50 01/20/25 04:00 98.1 99 01/19/25 20:00 0 Laboratory Tests 01/19/25 12:07 01/20/25 04:21 RIA ALLEN Jan 20, 2025 08:39
--- NOTE | 2025-01-20 09:28 | PN ---
[facility] PROGRESS NOTE Date of Service: Jan 20, 2025 Time of Service: 09:19 SUBJECTIVE: [ ] 01/14 patient is seen and examined at bedside, case discussed with the RN, no acute events overnight, blood pressure 125/62, afebrile, saturating normal on room air, patient alert, following commands. Ultrasound carotid artery showing mild intimal thickening bilateral carotid arteries and their branches, plaques as described, bilateral ICA/CCA ratio is more than two, suggesting 50 to 69% stenosis. Recommended CT/MR angiogram. Discussed with the patient. CT angio of the neck has been requested, we will follow. Cardiology input noted and appreciated, monitor orthostatic hypotension, continue IV fluids, echocardiogram, continue compression stockings, continue midodrine 2.5 mg p.o. daily. Follow a.m. cortisol, follow endocrinology input and recommendation. Discussed with the patient. 01/15 patient remains admitted to the PCU, alert oriented x3, no acute events overnight per discussion with the RN. Mildly tachycardic earlier this morning, 12 lead EKG reviewed, atrial tachycardia, heart rate of 104. Echocardiogram showing LVEF 55-60%, normal left ventricular wall motion. CT angio of the neck was done, pending report. Pending thyroid ultrasound report. Discussed with the patient, all questions answered. 01/16 patient remains admitted to the PCU, awake, following commands, denies dizziness, no blurry vision, no chest pain, shortness shortness for breath, no nausea, no vomiting. 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 Cardiology input noted and appreciated, midodrine increased to 2.5 mg p.o. q.8 hours. Endocrinology input noted and appreciated, clinically and biochemically euthyroid toxic despite mildly low TSH, patient reporting heat intolerance, palpitations and 15 lb weight loss, a.m. cortisol is 21, no evidence of adrenal insufficiency, recommended to continue methimazole 5 mg p.o. daily, follow results of thyroid ultrasound. Repeat thyroid function testing one month. Discussed with the patient, in agreement. 01/17 patient remains admitted to the PCU, case discussed with the RN, no acute events overnight, the time of my visit patient comfortably in bed, awake, following commands. Per discussion with the RN, patient had some episodes of orthostasis yesterday, earlier this morning blood pressure 102/65, heart rate of 87, afebrile, saturating normal on room air. Results of thyroid ultrasound showing heterogeneous tissue echotexture of both lobes of the thyroid concern for thyroiditis, nodules in both lobes of the thyroid. Continue with orthostatic vital signs checked throughout the day. Continue with midodrine per Cardiology recommendation. Continue with the methimazole 5 mg p.o. daily per endocrinology consultation. 01/18 patient remains admitted to the PCU, case discussed with the RN, patient is still with a episodes of orthostatic hypotension, alternating with a episodes of sinus tachycardia with the SVTs in the 150s, evaluated by briefcase sewer, placed on pindolol. If ongoing episodes of SVT and sinus tachycardia consider EP consultation. Results of thyroid ultrasound showing heterogeneous tissue echotexture of both lobes of the thyroid concern for thyroiditis, nodules in both lobes of the thyroid. Clinically and biochemically euthyroid toxic despite mildly low TSH, patient reporting heat intolerance, palpitations and 15 lb weight loss, a.m. cortisol is 21, no evidence of adrenal insufficiency,on methimazole 5 mg p.o. daily. Continue to follow endocrinology input and barbie mmendation. 01/19/25 PATIENT IS LYING IN BED PATIENT CONTINUES TO WORK WITH PHYSICAL THERAPY. ELECTROLYTES WERE LOW THIS MORNING BEING CORRECTED PER PROTOCOL. CONTINUES ORTHOSTATIC HYPOTENSIVE IS BEING FOLLOWED BY EP [employer]UME WATCHMAN[employer] WE WILL FOLLOW THE RECOMMENDATIONS. PATIENT WILL BE TRANSITIONED BACK TO [facility]. ONCE CLEARED BY [employer]UME WATCHMAN[employer] AND [employer]. 01/20/25 Mae BELLO evaluated patient discontinue Pindolol and staerted fludrocortisone 0.1 mg pop daily, and profafenone 150 mg po Q12. Prostatic blood pressure readings are pending. REVIEW OF SYSTEMS CONSTITUTIONAL: Denies fevers, chills, or night sweats. Reports having decreased appetite NEUROLOGICAL: Denies headache, amaurosis fugax, motor weakness, sensory deficit, vertigo/spinning sensation, gait abnormalities, or tremors. ENT: No hearing loss, otalgia, otorrhea, rhinitis, rhinorrhea, hoarseness, or sore throat. CARDIOVASCULAR: reports having recurrent syncopal episodes ongoing for the past one and a half month. PULMONARY: Denies any shortness of breath, cough, phlegm/sputum, hemoptysis, pleuritic chest pain. SLEEP: Denies morning headaches, daytime somnolence or napping. Denies diffic ulty falling asleep, staying asleep, waking from sleep. Denies knowledge of snoring. GASTROINTESTINAL: Denies any type of dysphagia to either liquids or solids. Denies nausea, vomiting, pyrosis, early satiety, abdominal pain, diarrhea, constipation, or changes in stool consistency or caliber. Denies coffee-ground emesis, hematemesis, hematochezia, or melanotic stools. GENITOURINARY: Denies frequency, urgency, nocturia, hematuria or incontinence (Storage/Irritative symptoms.) Low urinary stream, straining to void, urinary intermittency or hesitancy, splitting of the voiding stream, terminal dribbling. ENDOCRINOLOGIC: Denies polyuria, polydipsia, polyphagia or heat/cold into lerances. HEMATOLOGIC: Denies thrombophilia/previous clots, or coagulopathy/bleeding disorders. ONCOLOGIC: Denies personal history of malignancy. DERMATOLOGIC: Denies rashes or pruritus. PSYCHIATRIC: Denies any suicidal or homicidal ideation. Denies hallucinations. PHYSICAL EXAM GENERAL APPEARANCE: The patient is awake, alert, appears frail and elderly NEUROLOGICAL: Cranial nerves II-XII grossly intact. Motor is 5/5 in bilateral upper and lower extremities proximal to distal. No sensory deficits. HEENT: Face is symmetric. Pupils are equal and reactive. Extraocular movements are intact. NECK: Supple. No JVD. No thyromegaly. No submental, submandibular, pre- /postauricular, occipital or supraclavicular lymphadenopathy. CHEST: Normal chest expansion. No Telemetry. LUNGS: Absence of any rales, rhonchi or any wheezing. CARDIOVASCULAR: Regular. S1 and S2 normal. No appreciable rubs, murmurs or gallops. ABDOMEN: Soft, nontender, and nondistended. There is no rebound, voluntary guarding, or rigidity. : Deferred. No Nixon. EXTREMITIES: Non-edematous and not cyanotic. No clubbing. Good capillary refill. SKIN: Open wound noted to the right elbow with skin tear, multiple abrasions noted of the upper and lower extremity Vital Signs (last 8hr) Date Time Temp Pulse Resp B/P (MAP) Pulse Ox O2 Delivery O2 Flow Rate FiO2 01/20/25 07:18 76 18 N/A Room Air 21 01/20/25 07:17 76 16 01/20/25 04:04 110 103/50 01/20/25 04:01 105 129/77 01/20/25 04:00 98.1 76 18 124/61 99 Room Air LABS: Laboratory: Test 01/20/25 04:21 01/19/25 12:07 01/19/25 03:52 Range/Units Sodium Level 142 136-145 mmol/L Potassium Level 4.7 3.5-5.1 mmol/L Chloride Level 105 101-111 mmol/L Carbon Dioxide Level 34 H 21-32 mmol/L Blood Urea Nitrogen 18 7-18 mg/dL Creatinine 0.7 0.5-1.0 mg/dL Glomerular Filtration Rate Calc 91 >90 mL/min Random Glucose 98 70-105 mg/dL Total Calcium 8.5 8.5-10.1 mg/dL Magnesium Level 2.10 1.80-2.40 mg/dL White Blood Count 6.7 4.8-10.8 K/uL Red Blood Count 3.98 L 4.00-5.50 MIL/uL Hemoglobin 12.0 12.0-16.0 g/dL Hematocrit 37.5 36-48 % Mean Corpuscular Volume 94.2 79-99 fL Mean Corpuscular Hemoglobin 30.2 27.0-33.0 pg Mean Corpuscular Hemoglobin Concent 32.0 32.0-36.0 g/dL Red Cell Distribution Width 14.2 11.0-15.5 % Platelet Count 248 130-400 K/uL Mean Platelet Volume 9.1 7.5-10.5 fL Immature Granulocyte % (Auto) 0.3 0-1 % Neutrophils (%) (Auto) 75.4 40.0-77.0 % Lymphocytes (%) (Auto) 12.3 L 21.0-51.0 % Monocytes (%) (Auto) 8.3 3.0-13.0 % Eosinophils (%) (Auto) 3.5 0.0-8.0 % Basophils (%) (Auto) 0.2 0.0-5.0 % Neutrophils # (Auto) 5.0 1.8-7.7 K/uL Lymphocytes # (Auto) 0.8 L 1.0-4.8 K/uL Monocytes # (Auto) 0.6 0.1-1.0 K/uL Eosinophils # (Auto) 0.23 0.00-0.70 K/uL Basophils # (Auto) 0.01 0.00-0.20 K/uL Absolute Immature Granulocyte (auto 0.02 0-1 K/uL Nucleated Red Blood Cells 0.0 0.0-0.19 % Total Bilirubin 0.1 L 0.2-1.0 mg/dL Aspartate Amino Transf (AST/SGOT) 18 10-37 U/L Alanine Aminotransferase (ALT/SGPT) 17 12-78 U/L Alkaline Phosphatase 180 H 50-136 U/L Total Protein 5.8 L 6.0-8.3 g/dL Albumin 2.7 L 3.5-5.0 g/dL Current Medications Medications (Trade) Dose Ordered Sig/Garry Route PRN Reason Start Time Stop Time Status Last Admin Dose Admin Acetaminophen (TYLenol 325MG TAB) 650 mg Q6H PRN PO MILD PAIN (1-3) 01/13/25 14:30 02/12/25 14:29 01/18/25 18:31 650 MG Albuterol (DUOneb) 1 udvial Q6H PRN IH SHORTNESS OF BREATH 01/13/25 14:30 01/14/25 03:42 DC Albuterol Sulfate (Proventil 0.083% 2.5mg/3ml) 2.5 mg Q6H PRN IH SHORTNESS OF BREATH 01/14/25 04:00 02/13/25 03:59 Artificial Tears (Artificial Tears) TID OP 01/13/25 21:00 02/12/25 20:59 01/20/25 09:05 1 DROP Atorvastatin Calcium (LIPItor 40MG) 40 mg HS PO 01/13/25 21:00 02/12/25 20:59 01/19/25 21:31 40 MG Calcium Carbonate (Oyster Shell Ca 500mg Tab) 500 mg DAILY PO 01/14/25 09:00 02/13/25 08:59 01/20/25 09:04 500 MG Clonazepam (clonazePAM 0.5 mg) 0.5 mg BID PRN PO anxiety 01/13/25 14:30 02/12/25 14:29 Diphenhydramine HCl (BENAdryl CAP) 25 mg HS PRN PO ITCHING 01/13/25 19:30 02/12/25 19:29 Enoxaparin Sodium (Lovenox) 30 mg HS SQ 01/19/25 21:00 02/18/25 20:59 01/19/25 21:40 30 MG Fludrocortisone Acetate (Fludrocortisone Acetate) 0.1 mg DAILY PO 01/19/25 09:00 02/18/25 08:59 01/20/25 09:04 0.1 MG Folic Acid (FolVITE 5 MG/ML VIAL) 1 mg Q24H IV 01/13/25 16:30 01/18/25 16:30 DC 01/18/25 16:49 1 MG Home Med (Home Medication) DAILY PO 01/14/25 09:00 02/13/25 08:59 01/16/25 09:33 1 EACH Hydralazine HCl (APRESOLine 20MG INJ) 10 mg Q6H PRN IV ADMINISTER FOR SBP > 180 01/13/25 17:30 02/12/25 17:29 Ipratropium Kent (AtrovENT UD) 0.5 mg [id number] IH 01/14/25 06:00 02/13/25 05:59 01/20/25 07:16 0.5 MG Lactic Acid (Lachydrin 226gm Lotion) 1 GRAM DAILY TP 01/14/25 09:00 02/13/25 08:59 01/19/25 09:24 1 GM Lactobacillus Rhamnosus ([facility]) 1 each DAILY PO 01/14/25 09:00 02/13/25 08:59 01/19/25 09:21 1 EACH Magnesium Sulfate 50 ml @ 0 mls/hr PROTOCOL IV 01/13/25 15:30 01/15/25 08:39 DC 01/15/25 06:08 25 MLS/HR Magnesium Sulfate 50 ml @ 0 mls/hr PROTOCOL IV 01/15/25 09:00 02/14/25 08:59 01/19/25 12:29 25 MLS/HR Melatonin (Melatonin) 5 mg HS PO 01/13/25 21:00 02/12/25 20:59 01/19/25 21:31 5 MG Memantine (NAmenDA 5 MG TAB) 5 mg DAILY PO 01/14/25 09:00 02/13/25 08:59 01/20/25 09:04 5 MG Methimazole (tapaZOLE) 5 mg DAILY PO 01/15/25 09:00 02/14/25 08:59 01/20/25 09:04 5 MG Methimazole (tapaZOLE) 10 mg DAILY PO 01/15/25 09:00 01/14/25 12:24 DC Midodrine (PROAMatine 5 MG TABLET) 2.5 mg DAILY PO 01/14/25 09:00 01/16/25 07:02 DC 01/15/25 08:41 2.5 MG Midodrine (PROAMatine 5 MG TABLET) 2.5 mg Q8H5 PO 01/16/25 07:00 01/18/25 12:02 DC 01/17/25 20:59 2.5 MG Midodrine (PROAMatine 5 MG TABLET) 5 mg TID PRN PO for BP less than 90/60 01/13/25 16:00 01/18/25 12:02 DC 01/18/25 03:50 5 MG Montelukast Sodium (SinguLAIR) 10 mg HS PO 01/13/25 21:00 02/12/25 20:59 01/19/25 21:31 10 MG Neomycin/ Polymyxin/ Bacitracin (Triple Antibiotic Ointment) 1 appl DAILY TP 01/14/25 09:00 02/13/25 08:59 01/20/25 09:04 1 APPL Ondansetron HCl (zoFRAN 4MG INJ) 4 mg Q6H PRN IVP NAUSEA/VOMITING 01/13/25 14:30 02/12/25 14:29 Pindolol (Visken) 5 mg BID PO 01/17/25 21:00 01/19/25 08:44 DC 01/18/25 20:43 5 MG Pindolol (Visken) 5 mg ONCE STAT PO 01/17/25 11:29 01/17/25 11:42 DC 01/17/25 11:46 5 MG Polyethylene Glycol (MIRalax 3350 17 GM POWD.PACK) 17 gm DAILY PRN PO constipation 01/13/25 14:30 02/12/25 14:29 01/18/25 09:29 17 GM Potassium Chloride 100 ml @ 100 mls/hr AD PRN IV POTASSIUM PROTOCOL 01/13/25 15:30 02/12/25 15:29 Potassium Chloride (K-Dur/Klor-Con 20meq) 20 meq AD PRN PO POTASSIUM PROTOCOL 01/13/25 15:30 02/12/25 15:29 01/17/25 11:14 20 MEQ Potassium Chloride (KCl 10% Elixir 20meq/15ml) 20 meq AD PRN PO POTASSIUM PROTOCOL 01/13/25 15:30 02/12/25 15:29 Propafenone HCl (Rythmol) 75 mg Q8H PO 01/19/25 09:00 01/19/25 09:09 DC Propafenone HCl (Rythmol) 150 mg BID PO 01/19/25 09:30 02/18/25 08:59 01/20/25 09:04 150 MG Sodium Chloride 1,000 ml @ 50 mls/hr Q20H IV 01/13/25 14:30 02/12/25 14:29 01/20/25 06:12 50 MLS/HR Sucralfate (Carafate) 1 gm HS PO 01/13/25 21:00 02/12/25 20:59 01/19/25 21:32 1 GM Tiotropium Kent (Spiriva) 18 mcg DAILY IH 01/14/25 09:00 01/13/25 15:57 DC Trazodone HCl (DesyREL/OlepTRO) 50 mg HS PO 01/13/25 21:00 02/12/25 20:59 01/19/25 21:31 50 MG Trazodone HCl (DesyREL/OlepTRO) 75 mg HS PO 01/13/25 21:00 01/13/25 14:58 DC Venlafaxine HCl (EffEXOR 75 MG TAB) 75 mg DAILY PO 01/14/25 09:00 01/13/25 19:46 DC Venlafaxine HCl (EffEXOR 75 MG TAB) 150 mg DAILY PO 01/14/25 09:00 02/13/25 08:59 01/20/25 09:04 150 MG DIAGNOSTICS / RADIOLOGY: [ ] ASSESSMENT: Orthostatic hypotension, POA Recurrent syncopal episodes with fall, POA Frailty/debility, POA History of orthostasis, POA History of COPD, POA History of anxiety disorder/ Depression, POA History of mild dementia, POA Hyperlipidemia, POA History of insomnia, POA PLAN: patient remains admitted to the PCU, case discussed with the RN, patient is still with a episodes of orthostatic hypotension, DR Tracy discontinue pindolol started fludrocortisone 0.1 mg pop daily, and propafenone 150 mg po Q12. othrostatic blood pressure readings are pending. DR Gamboa is following no evidence of adrenal insufficiency,continue methimazole 5 mg p.o. daily. Disposition: [facility]: home resident. NEURO: Minimize central acting medications as possible. Fall Precautions. Well lighted room through the day and minimize interruptions through the night to prevent acute delirium. PULMONARY: Supplemental 02 as needed BiPAP as necessary, for respiratory distress Titrate Fio2 to keep Spo2 > or = 90% DuoNebs and CPT as needed IS hourly while awake for pulmonary hygiene prn Out of bed to chair as tolerated Maintain aspiration precautions at all times CARDIOVASCULAR: Follow hemodynamics. Vital signs per facility protocol GI & NUTRITION: Continue nutritional support Aspirations precautions Prokinetic agents and laxatives as needed KIDNEYS & ELECTROLYTES: Strict monitoring of intake and output Daily weights Avoid nephrotoxic agents Monitor electrolytes and replace as needed Goal urine output of 30mL/hr or 0.5mL/kg/hr Medications to be dosed according to renal function. Avoid contrast if possible ENDOCRINE: Maintain blood glucose between 100-180 at all times. Insulin sliding scale for blood glucose management Hypoglycemia and hyperglycemia protocol in place INFECTIOUS DISEASE: Trend temperature, WBC and procalcitonin level Follow cultures, deescalate antibiotics as soon as possible. Panculture if new onset fever HEMATOLOGY & COAGULATION: Monitor H&H. Keep Hgb > 7 Transfuse 1 unit of PRBC for Hgb < 7 Transfuse 1 pack of platelets of platelets < 20, 000 Watch for any signs and symptoms of bleeding SKIN: Pressure ulcer prevention per facility protocol Specialty mattress as needed ORTHO/REHAB Continue PT/OT PRN: MEDICATIONS Tylenol 650 mg po every 4 hrs for fever zofran 4 mg IV every 6 hrs for n/v Hydralazine 5 mg IV every 4 hrs systolic pressure > 160 bowel regiment: lactulose 20 gm PO BID PRN constipation Supportive measures: Continue GI and DVT prophylaxis Disposition: Pending improvement in clinical condition All questions answered time spent: > 35 min ATTESTATION BY PHYSICIAN I have seen and examined the patient. I reviewed the documentation, medical decision making, and treatment plan as noted by the mid-level provider above. I agree with the findings and plan of care. Katia Castañeda MD, ELIZABETH NP Jan 20, 2025 09:28
--- NOTE | 2025-01-20 12:19 | DS ---
Discharge Summary Hospital Course Summary: 01/14 patient is seen and examined at bedside, case discussed with the RN, no acute events overnight, blood pressure 125/62, afebrile, saturating normal on room air, patient alert, following commands. Ultrasound carotid artery showing mild intimal thickening bilateral carotid arteries and their branches, plaques as described, bilateral ICA/CCA ratio is more than two, suggesting 50 to 69% stenosis. Recommended CT/MR angiogram. Discussed with the patient. CT angio of the neck has been requested, we will follow. Cardiology input noted and appreciated, monitor orthostatic hypotension, continue IV fluids, echocardiogram, continue compression stockings, continue midodrine 2.5 mg p.o. daily. Follow a.m. cortisol, follow endocrinology input and recommendation. Discussed with the patient. 01/15 patient remains admitted to the PCU, alert oriented x3, no acute events overnight per discussion with the RN. Mildly tachycardic earlier this morning, 12 lead EKG reviewed, atrial tachycardia, heart rate of 104. Echocardiogram showing LVEF 55-60%, normal left ventricular wall motion. CT angio of the neck was done, pending report. Pending thyroid ultrasound report. Discussed with the patient, all questions answered. 01/16 patient remains admitted to the PCU, awake, following commands, denies dizziness, no blurry vision, no chest pain, shortness shortness for breath, no nausea, no vomiting. 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 Cardiology input noted and appreciated, midodrine increased to 2.5 mg p.o. q.8 hours. Endocrinology input noted and appreciated, clinically and biochemically euthyroid toxic despite mildly low TSH, patient reporting heat intolerance, p alpitations and 15 lb weight loss, a.m. cortisol is 21, no evidence of adrenal insufficiency, recommended to continue methimazole 5 mg p.o. daily, follow results of thyroid ultrasound. Repeat thyroid function testing one month. Discussed with the patient, in agreement. 01/17 patient remains admitted to the PCU, case discussed with the RN, no acute events overnight, the time of my visit patient comfortably in bed, awake, following commands. Per discussion with the RN, patient had some episodes of orthostasis yesterday, earlier this morning blood pressure 102/65, heart rate of 87, afebrile, saturating normal on room air. Results of thyroid ultrasound showing heterogeneous tissue echotexture of both lobes of the thyroid concern for thyroiditis, nodules in both lobes of the thyroid. Continue with orthostatic vital signs checked throughout the day. Continue with midodrine per Cardiology recommendation. Continue with the methimazole 5 mg p.o. daily per endocrinology consultation. 01/18 patient remains admitted to the PCU, case discussed with the RN, patient is still with a episodes of orthostatic hypotension, alternating with a episodes of sinus tachycardia with the SVTs in the 150s, evaluated by bag loader, placed on pindolol. If ongoing episodes of SVT and sinus tachycardia consider EP consultation. Results of thyroid ultrasound showing heterogeneous tissue echotexture of both lobes of the thyroid concern for thyroiditis, nodules in both lobes of the thyroid. Clinically and biochemically euthyroid toxic despite mildly low TSH, patient reporting heat intolerance, palpitations and 15 lb weight loss, a.m. cortisol is 21, no evidence of adrenal insufficiency,on methimazole 5 mg p.o. daily. Continue to follow endocrinology input and recommendation. 01/19/25 PATIENT IS LYING IN BED PATIENT CONTINUES TO WORK WITH PHYSICAL THERAPY. ELECTROLYTES WERE LOW THIS MORNING BEING CORRECTED PER PROTOCOL. CONTINUES ORTHOSTATIC HYPOTENSIVE IS BEING FOLLOWED BY EP SCRAPER OPERATOR'S WE WILL FOLLOW THE RECOMMENDATIONS. PATIENT WILL BE TRANSITIONED BACK TO [facility]. ONCE CLEARED BY SCRAPER OPERATOR'S AND ADVANCE AGENT. 2024 patient is hemodynamically stable. She has been cleared by EP we will follow their recommendations. See below patient has improved dizziness with ambulation. We will need to follow-up with EP in two weeks then we will be adjusting her new medication outpatient setting. She will return back to her residence [facility]. Junior Engineer(s): GENERAL APPEARANCE: The patient is awake, alert, appears frail and elderly NEUROLOGICAL: Cranial nerves II-XII grossly intact. Motor is 5/5 in bilateral upper and lower extremities proximal to distal. No sensory deficits. HEENT: Face is symmetric. Pupils are equal and reactive. Extraocular movements are intact. NECK: Supple. No JVD. No thyromegaly. No submental, submandibular, pre- /postauricular, occipital or supraclavicular lymphadenopathy. CHEST: Normal chest expansion. No Telemetry. LUNGS: Absence of any rales, rhonchi or any wheezing. CARDIOVASCULAR: Regular. S1 and S2 normal. No appreciable rubs, murmurs or gallops. ABDOMEN: Soft, nontender, and nondistended. There is no rebound, voluntary guarding, or rigidity. : Deferred. No Nioxn. EXTREMITIES: Non-edematous and not cyanotic. No clubbing. Good capillary refill. SKIN: Open wound noted to the right elbow with skin tear, multiple abrasions noted of the upper and lower extremity edges all approximated Procedure(s): REASON: thyrotoxicosis ORDERING PHYSICIAN: PRISCILA ULRICH MD PROCEDURE: THYROID - US THYROID/NECK EXAMINATION: ULTRASOUND OF THE THYROID. CLINICAL HISTORY: Thyrotoxicosis. COMPARISON: CTA head and neck with contrast dated 01/14/2025. TECHNIQUE: Transverse and longitudinal images were obtained through both lobes and the isthmus of the thyroid. FINDINGS: The thyroid gland is normal in caliber with heterogenous tissue echotexture. The right thyroid lobe measures 4.4 x 2.4 x 1.3 cm and the left thyroid lobe measures 5.0 x 1.6 x 1.5 cm in the craniocaudal, AP, and transverse dimensions respectively. The isthmus measures 0.40 cm in AP dimension. Right lobe: There is a cystic nodule that measures 1.0 x 1.0 x 1.0 cm at the upper pole (TR1). There is a hypoechoic solid nodule that measures 1.0 x 1.0 x 1.0 cm at the upper pole (TR4). There is a hypoechoic solid nodule that measures 1.0 x 0.3 x 1.0 cm at the upper pole (TR4). There is a hypoechoic solid nodule that measures 0.4 x 0.3 x 0.4 cm at the mid pole (TR4). There is a hypoechoic solid nodule that measures 0.6 x 0.3 x 0.6 cm at the mid pole (TR4). There is a hypoechoic solid nodule that measures 0.4 x 0.3 x 0.4 cm at the lower pole (TR4). There is a hypoechoic solid nodule that measures 1.4 x 1.4 x 1.1 cm at the lower pole (TR5). There is a hypoechoic solid nodule that measures 1.0 x 0.5 x 1.0 cm at the lower pole (TR4). Left lobe: There is a cystic nodule that measures 0.3 x 0.3 x 0.4 cm at the upper pole (TR1). There is a hypoechoic solid nodule that measures 1.0 x 1.1 x 1.0 cm at the upper pole (TR5). There is a hypoechoic solid nodule that measures 1.3 x 1.0 x 1.0 cm at the mid pole (TR4). There is a hypoechoic solid nodule that measures 1.0 x 0.3 x 0.4 cm at the mid pole (TR4). There is a cystic nodule that measures 1.0 x 0.3 x 1.0 cm at the lower pole (TR1). There is a hypoechoic solid nodule that measures 1.3 x 1.0 x 1.0 cm at the lower pole (TR4). No significantly enlarged lymph nodes. IMPRESSION: Heterogenous tissue echotexture of both the lobes of the thyroid, of concern for thyroiditis. Nodules in both lobes of the thyroid. TI-RADS follow up recommendations: TR1: no FNA required TR2: no FNA required TR3: more than or equal to 1.5 cm follow up, more than or equal to 2.5 cm FNA follow up: 1, 3 and 5 years TR4: more than or equal to 1.0 cm follow up, more than or equal to 1.5 cm FNA follow up: 1, 2, 3 and 5 years TR5: more than or equal to 0.5 cm follow up, more than or equal to 1.0 cm FNA annual follow up for up to 5 years REASON: recurrent syncope, r/o significant valvulopathy, stenosis ORDERING PHYSICIAN: BALDEMAR MANN MD PROCEDURE: ECHO CMP - ECHO 2-D COMPLETE APPROVED REPORT EXAM: Two-dimensional and M-mode echocardiogram with Doppler and color Doppler. INDICATION ICD: recurrent syncope, r/o significant valvulopathy, stenosis 2D Dimensions RVDd 2.3 cm LVEF(%) 57.0 (>50%) LVED Vol(simp.) 47.9 mL IVSd 0.7 (0.7-1.1cm) FS(%) 29 % LVES Vol(simp.) 21.3 mL LVDd 3.7 (3.8-5.6cm) LA (2D) 2.6 (1.6-4.0cm) LVEF(%, simp.) 56 % PWd 1.1 (0.7-1.1cm) Ao Root(2D) 2.6 (2.0-3.7cm) LA ESV INDEX (BP) 1 8.20 mL/m2 LVDs 2.6 (2.5-4.0cm) LVOT diam 1.8 (1.8-2.4cm) IVC diam 0.9 cm Deformation Strain Apical 4 -17.6 % Apical 2 -17.6 % Apical 3 -18.5 % Global Strain -17.9 % Aortic Valve AoV Vmax 1.0 m/s Ao Peak GR 4.2 mmHg LVOT Vmax 1.0 m/s AoV VTI 0.2 m Ao Mean GR 2.6 mmHg LVOT VTI 0.17 m GABINO (VMAX) 2.45 cm2 GABINO (VTI) 2.2 cm2 Mitral Valve MV E Vmax 54.6 cm/s DECEL Time 184 ms MV A Vmax 90.0 cm/s P 1/2 T 54 ms E/A ratio 0.6 MVA (PHT) 4.1 cm2 TDI E/E' Medial 12.7 E/E' Lateral 7.1 Medial E' Peak V 4.29 cm/s Lateral E' Peak V 7.68 cm/s Tricuspid Valve TR Vmax 2.0 m/s RVSP 16.7 mmHg TR Peak GR 16.7 mmHg Left Ventricle The left ventricle is normal size. There is normal LV segmental wall motion. There is normal left ventricular wall thickness. LVEF is 55-60%. The left ventricular diastolic function is normal. Right Ventricle The right ventricle is normal size. Right ventricular systolic function is mildly reduced. Atria The left atrium size is normal. The right atrium size is normal. Aortic Valve The aortic valve is mildly sclerotic, but opens normally. No aortic regurgitation is present. There is no aortic valvular stenosis. Mitral Valve The mitral valve is normal in structure. There is no mitral valve regurgitation noted. There is no mitral valve stenosis. Tricuspid Valve The tricuspid valve is normal in structure. There is trivial tricuspid valve regurgitation noted. Pulmonic Valve The pulmonary valve is normal in structure. There is no pulmonic valvular regurgitation. Great Vessels The aortic root is normal in size. The IVC is normal in size and collapses >50% with inspiration. Pericardium There is no pericardial effusion. Conclusion The left ventricle is normal size. There is normal left ventricular wall thickness. There is normal LV segmental wall motion. LVEF is 55-60%. The left ventricular diastolic function is normal. The aortic valve is mildly sclerotic, but opens normally. There is no aortic valvular stenosis. There is no mitral valve regurgitation noted. There is no pericardial effusion. REASON: bilateral carotid artery disease ORDERING PHYSICIAN: GIORGI DELEON MD PROCEDURE: CTA [facility] - CT ANGIO HEAD AND NECK EXAM: CTA Head and Neck with and without Intravenous Contrast. CLINICAL HISTORY: bilateral carotid artery disease TECHNIQUE: Axial CTA images of the head and neck performed with and without intravenous contrast in the arterial phase. Coronal and sagittal reformatted images were generated and reviewed. 3-D reformatted images generated on an independent workstation were also reviewed. NASCET criteria were used in assessment of stenosis. CONTRAST: Contrast injected without incident. COMPARISON: Doppler dated 01/13/25 FINDINGS: VASCULATURE: NECK: COMMON CAROTID ARTERIES Calcified plaques in the bilateral common carotid artery and carotid bulbs with 20-25% stenosis at the carotid bulbs. No significant stenosis. No dissection or occlusion. EXTERNAL CAROTID ARTERIES Patent. 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 No stenosis by NASCET criteria. No dissection or occlusion. VERTEBRAL ARTERIES No significant stenosis. No dissection or occlusion. HEAD: ANTERIOR CEREBRAL ARTERIES No significant stenosis. No occlusion. No aneurysm. MIDDLE CEREBRAL ARTERIES No significant stenosis. No occlusion. No aneurysm. POSTERIOR CEREBRAL ARTERIES No significant stenosis. No occlusion. No aneurysm. BASILAR ARTERY No significant stenosis. No occlusion. No aneurysm. OTHER: SOFT TISSUES No acute finding. Thyroid nodules may be further characterized with dedicated ultrasound imaging. BONES No acute osseous abnormality. IMPRESSION: 1. Calcified plaques in the bilateral common carotid artery and carotid bulbs with 20-25% stenosis at the carotid bulbs. 2. 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 REASON: elevated alkaline phosphatase ORDERING PHYSICIAN: BALDEMAR MANN MD PROCEDURE: ABDRUQLTD - US ABDOMINAL RUQ\LTD EXAMINATION: ULTRASOUND OF THE ABDOMEN (LIMITED) WITH COLOR DOPPLER. CLINICAL HISTORY: Elevated alkaline phosphatase. COMPARISON: None. TECHNIQUE: Real-time grayscale ultrasound images of the abdomen. In addition, color Doppler is medically necessary to perform in order to evaluate vascularity and blood flow. FINDINGS: Liver: Normal in caliber, the right hepatic lobe measures 12.0 cm in the craniocaudal dimension. There is increased echogenicity of the hepatic parenchyma. There is no intrahepatic biliary ductal dilatation. There is normal spectral Doppler of the main portal vein. There is a cyst that measures 1.0 x 1.0 x 1.0 cm in the left lobe. Gallbladder: Post cholecystectomy status. Common bile duct is normal in caliber, measuring 0.6 cm. Pancreas: Normal in caliber and echotexture. No calcification or dilated pancreatic duct. The right kidney is normal in caliber, the right kidney measures 9.6 x 4.3 x 4.4 cm in craniocaudal, AP, and transverse dimensions respectively. There is normal renal cortical thickness, and cortical echogenicity. There is no renal calculus or hydronephrosis. There is a simple cortical cyst that measures 3.0 x 4.3 x 4.6 cm in the right renal mid pole. IMPRESSION: Hepatic steatosis. Simple hepatic cyst. Post cholecystectomy status. Right renal simple cortical cyst. REASON: recurrent syncope, with falls, hit head with last episode ORDERING PHYSICIAN: BALDEMAR MANN MD PROCEDURE: HEAD WO - CT HEAD/BRAIN W/O CONTRAST EXAM: CT Head Without IV contrast. CLINICAL HISTORY: recurrent syncope, with falls, hit head with last episode TECHNIQUE: Axial computed tomography images of the head/brain without intravenous contrast. COMPARISON: None provided. FINDINGS: BRAIN: Age related atrophic changes in the form of prominence of cerebral sulci and ventricles. No evidence of acute hemorrhage. No mass lesion. No CT evidence for acute territorial infarct. No midline shift or extra-axial collections. VENTRICLES: No hydrocephalus. ORBITS: The orbits are unremarkable. SINUSES AND MASTOIDS: The paranasal sinuses and mastoid air cells are clear. BONES: No fracture. SOFT TISSUES: Unremarkable. REASON: recurrent syncope x 1 month, dizziness, assess for carotid artery stenosis ORDERING PHYSICIAN: BALDEMAR MANN MD PROCEDURE: CAROTID - US CAROTID DUPLEX EXAMINATION: DUPLEX ULTRASOUND EXAMINATION OF THE BILATERAL CAROTID AND VERTEBRAL ARTERIES. CLINICAL HISTORY: Recurrent syncope ??? 1 month, dizziness. COMPARISON: None provided. TECHNIQUE: Real-time ultrasound scan of the bilateral carotid and vertebral arteries, 2-D grayscale, with color Doppler flow and spectral waveform analysis. FINDINGS: Color and spectral Doppler interrogation of the carotid vessels on the right demonstrate peak systolic velocities as follows: CCA (Proximal and distal): 39 and 44 cm/s respectively. Bulb: 42 cm/s. ECA: 106 cm/s. ICA (Proximal, mid, and distal): 71, 94, and 120 cm/s respectively. Vertebral artery demonstrates antegrade flow: 49 cm/s. Right ICA/CCA ratio: 2.5 Peak systolic velocities on the left are as follows: CCA (Proximal and distal): 47 and 52 cm/s respectively. Bulb: 75 cm/s. ECA: 95 cm/s. ICA (Proximal, mid, and distal): 72, 122, and 95 cm/s respectively. Vertebral artery demonstrates antegrade flow: 98 cm/s. Left ICA/CCA ratio: 2.3 Both the common carotid arteries and their branches reveal mild intimal thickening. There are calcified plaques in the right bulb and common carotid, proximal internal, and external carotid arteries causing about 20% to 30% diameter stenosis. There are calcified plaques in the left bulb, common carotid, and proximal internal carotid arteries about 20% to 30% diameter stenosis. IMPRESSION: Mild intimal thickening in the bilateral carotid arteries and their branches. Plaques as described. Bilateral ICA/CCA ratio is more than 2, suggesting 50% to 69% stenosis. Recommend CT/MR angiogram. Assessment/Plan: Discharged dx's; Orthostatic hypotension, POA Recurrent syncopal episodes with fall, POA Frailty/debility, POA History of orthostasis, POA History of COPD, POA History of anxiety disorder/ Depression, POA History of mild dementia, POA Hyperlipidemia, POA History of insomnia, POA thyrotoxicosis no evidence of adrenal insufficiency Supraventricular tachycardia. Chronic obstructive pulmonary disease. PLAN: ADMISSION DATE: 01/13/2025 DISCHARGE DATE: 01/20/2025 DISPOSITION: Residence home [facility] CONDITION: Stable BUSINESS SYSTEMS CONSULTANT(S): [employer], EP perinatology physician FOLLOW UP APPOINTMENT(S): Dr. Tracy in two weeks. PROCEDURES: IMAGING (S) report attached to summary : MICROBIOLOGY: report attached to summary; ACTIVITY: ab kim with assistance HOME MEDICATIONS CHANGES ON HOME MEDICATIONS NEW MEDICATIONS DR Tracy started fludrocortisone 0.1 mg once daily for management of orthostatic hypotension She has symptomatic improvement with ambulation. she will continue fludrocortisone 0.1 mg once daily. Fludrocortisone can be further titrated as an outpatient if necessary. Regarding the atrial tachycardia,he willl have her continue with propafenone 150 mg twice daily and plan for outpatient cardiac specialist to assess her response to propafenone. Further adjustments will be made as an outpatient. Recommend physical therapy to focus on core and leg strengthening, as well as fall prevention. The head of her bed should be elevated to 30 at all times. We also recommend daily use of compression stockings, thigh-high preferred. and per DR Ulrich will continue with methimazole 5 mg daily. TEACHING: fall precaution Emergency instructions: The patient was instructed to present to the nearest Emergency Department or call 911 should their symptoms return or worsen. Home Medications: Reported Medications Sennosides (Senna) 8.6 Mg Tablet, 8.6 MG PO DAILY, TAB 01/13/25 Carboxymethylcellulose Sodium (Refresh Tears) 0.5 % Drops, 1 DROP OP TID for 30 Days, #15 ML 0 Refills 01/13/25 Loperamide HCl (Imodium A-D) 2 Mg Capsule, 2 MG PO Q6HPRN, CAP 01/13/25 Diphenhydramine HCl (Benadryl) 25 Mg Capsule, 1 CAP PO HS PRN for ITCHING for 30 Days, #30 CAP 0 Refills 01/13/25 Polyethylene Glycol 3350 (Miralax) 17 Gram Powd.pack, 17 GM PO DAILY 01/13/25 Alendronate Sodium (Alendronate Sodium) 70 Mg Tablet, 1 TAB PO QWEEK for 28 Days, #4 TAB 0 Refills in the morning, at least 30 minutes before the first food, beverage, or medication of the day 01/13/25 Ondansetron (Ondansetron Odt) 4 Mg Tab.rapdis, 1 TAB PO Q6HPRN PRN for nausea/vomiting for 4 Days, #16 TAB 0 Refills 01/13/25 Acetaminophen (Acetaminophen) 325 Mg Tablet, 325 MG PO Q6HPRN for pain, TAB 01/13/25 Cyanocobalamin (Vitamin B-12) (Cyanocobalamin Injection) 1,000 Mcg/Ml Vial, 1000 MCG IJ DAILY, VIAL 01/13/25 Tiotropium [place] (Spiriva Respimat) 2.5 Mcg/Actuation Mist.inhal, 4 GM IH DAILY 01/13/25 Lactobacillus Acidophilus (Acidophilus Lactobacilli) 500 Million Cell Capsule, 1 CAP PO DAILY for 30 Days, #30 CAP 0 Refills 01/13/25 Calcium Carbonate (Calcium) 600 Mg Calcium (1500 Mg) Tablet, 600 MG PO DAILY, TAB 01/13/25 Cholecalciferol (Vitamin D3) (Vitamin D3) 25 Mcg (1000 Unit) Capsule, 1 CAP PO DAILY for 30 Days, #30 CAP 0 Refills 01/13/25 Memantine HCl (Namenda) 5 Mg (28)-10 Mg (21) Tab.ds.pk, 1 TAB PO AD for 28 Days, #49 TAB 0 Refills 01/13/25 Ammonium Lactate (Lac-Hydrin 12% Lot) 12 % Lot, 1 APPL TP DAILY for arms, back, legs for 30 Days, #400 GM 0 Refills 01/13/25 Neomycin/Bacitracin/Polymyxinb (Triple Antibiotic Ointment Pkt) 3.5 Mg-400 Unit- 5,000 Unit/Gram Oint.pack, 1 EACH TP DAILY for Right elbow, PACK 01/13/25 Albuterol Sulfate (Ventolin Hfa/Proventil Hfa/Proair Hfa) 90 Mcg Puff, 2 PUFF IH Q4HPRN PRN for wheezing for 30 Days, #18 GM 0 Refills 01/13/25 Clonazepam (Clonazepam) 0.5 Mg Tab.rapdis, 1 TAB PO BID for 30 Days, #60 TAB 0 Refills 01/13/25 Sulfamethoxazole/Trimethoprim (Bactrim Ds Tablet) 800 Mg-160 Mg Tablet, 1 TAB PO BID for 7 Days, #14 TAB 0 Refills 01/13/25 Melatonin (Melatonin) 3 Mg Capsule, 4 CAP PO HS for 30 Days, #30 CAP 0 Refills 01/13/25 Sucralfate (Carafate) 1 Gram Tablet, 1 GM PO HS, TAB 01/13/25 Atorvastatin Calcium (LIPITOR) 40 Mg Tablet, 1 TAB PO HS for 30 Days, #30 TAB 0 Refills 01/13/25 Venlafaxine HCl (Venlafaxine HCl) 75 Mg Tablet, 2 TAB PO BID for 30 Days, #60 TAB 0 Refills 01/13/25 Trazodone HCl (Trazodone HCl) 50 Mg Tablet, 1.5 TAB PO HS for 30 Days, #30 TAB 0 Refills 01/13/25 Montelukast Sodium (Singulair 10Mg) 10 Mg Tab, 3 TAB PO DAILY for 30 Days, #30 TAB 0 Refills 01/13/25 New Medications: Fludrocortisone Acetate (Florinef) 0.1 Mg Tab 0.1 MG PO DAILY, #30 TAB 2 Refills Propafenone HCl (Propafenone HCl) 150 Mg Tablet 150 MG PO BID, #60 TAB 2 Refills Continued Medications: Atorvastatin Calcium (Lipitor) 40 Mg Tablet 1 TAB PO HS for 30 Days, #30 TAB 0 Refills Time spent arranging discharge: 31-60 minutes ATTESTATION BY PHYSICIAN I have seen and examined the patient. I reviewed the documentation, medical decision making, and treatment plan as noted by the mid-level provider above. I agree with the findings and plan of care. Katia Castañeda MD, ELIZABETH NP Jan 20, 2025 12:19
--- NOTE | 2025-01-20 14:06 | NUR ---
C Follow-up: Patient re-assessed by wound healing team. See wound assessment. Assessment and recommendations provided to primary nurse. Education provided. Addendum: 01/20/25 at 1550 by MIC FLOWER RN RN/TUNDE Amended: Links added.
--- NOTE | 2025-01-20 14:25 | NUR ---
DISCHARGE TO [facility] IV AND TELEPAK REMOVED. DISCHARGE INSTRUCTIONS AND CARDIOLOGY PRESCRIPTION GIVEN AND EXPLAINED. BELONGINGS TAKEN BY AGRICULTURAL TECHNICAL OFFICER. PATIENT WHEELED DOWN BY FACILITY AGRICULTURAL TECHNICAL OFFICER. SCAB PICTURE OBTAINED BY WOUND CARE NURSE MIC.
--- NOTE | 2025-01-20 15:01 | PN ---
PROGRESS NOTE Date of Service: Jan 20, 2025 Time of Service: 15:01 SUBJECTIVE: Patient is evaluated at the bedside in room 202 for wound care follow up . Patent is awake, alert, and oriented x 3. The right elbow wound and left hand wound noted improving with scab cap. No periwound erythema noted. No drainage noted. Patient has no complaints of pain or discomfort at this time. REVIEW OF SYSTEMS CONSTITUTIONAL: Denies fever, chills, or fatigue. HEAD/FACE: No signs of trauma. EENT: Denies eye pain, blurred vision, double vision, or light sensitivity. RESPIRATORY: Denies shortness of breath, cough, wheezing CARDIOVASCULAR: Denies chest pain, palpitation, syncope GASTROINTESTINAL/ABDOMINAL: Denies abdominal pain, constipation, diarrhea, nausea or vomiting GENITOURINARY: Denies dysuria or hematuria. MUSCULOSKELETAL: Denies joint pain, tenderness, or trauma. INTEGUMENTARY: Denies rash or itchiness NEUROLOGICAL/PSYCH: Denies anxiety, depression, heat or cold intolerance. PHYSICAL EXAM EYES: Anicteric. Pupils equal and reactive. HENT: No oral thrush seen, moist Oral mucosa NECK: Supple, no JVD or thyromegaly. LUNGS: Good air entry. No rales, no rhonchi. CARDIOVASCULAR: S1, S2 regular. No murmur heard. ABDOMEN: Soft, non tender, bowel sounds present, no organomegaly CENTRAL NERVOUS SYSTEM: Awake, alert, oriented x 3. No focal deficits. SKIN: The right elbow wound and left hand wound noted improving with scab cap. No periwound erythema noted. No drainage noted. Patient has no complaints of pain or discomfort at this time. LYMPHATICS: No peripheral lymphadenopathy MUSCULOSKELETAL: No joint swelling, erythema or tenderness. EXTREMITIES: No cyanosis or clubbing BACK: No deformity, no pressure ulcer. GENITOURINARY: No dysuria or hematuria Vital Signs (last 8hr) Date Time Temp Pulse Resp B/P (MAP) Pulse Ox O2 Delivery O2 Flow Rate FiO2 01/20/25 11:31 74 18 N/A Room Air 21 01/20/25 11:30 74 18 01/20/25 11:10 123 20 103/60 97 Room Air 01/20/25 11:07 68 20 92/70 98 Room Air 01/20/25 11:05 98.1 84 20 116/58 97 Room Air 01/20/25 08:36 50 20 10/52 95 Room Air 01/20/25 08:33 95 20 97/59 96 Room Air 01/20/25 08:32 98.6 79 16 118/57 97 Room Air 01/20/25 08:00 96 Room Air* 0 01/20/25 07:18 76 18 N/A Room Air 01/20/25 07:17 76 16 LABS: Laboratory: Test 01/20/25 04:21 01/19/25 12:07 01/19/25 03:52 Range/Units Sodium Level 142 136-145 mmol/L Potassium Level 4.7 3.5-5.1 mmol/L Chloride Level 105 101-111 mmol/L Carbon Dioxide Level 34 H 21-32 mmol/L Blood Urea Nitrogen 18 7-18 mg/dL Creatinine 0.7 0.5-1.0 mg/dL Glomerular Filtration Rate Calc 91 >90 mL/min Random Glucose 98 70-105 mg/dL Total Calcium 8.5 8.5-10.1 mg/dL Magnesium Level 2.10 1.80-2.40 mg/dL White Blood Count 6.7 4.8-10.8 K/uL Red Blood Count 3.98 L 4.00-5.50 MIL/uL Hemoglobin 12.0 12.0-16.0 g/dL Hematocrit 37.5 36-48 % Mean Corpuscular Volume 94.2 79-99 fL Mean Corpuscular Hemoglobin 30.2 27.0-33.0 pg Mean Corpuscular Hemoglobin Concent 32.0 32.0-36.0 g/dL Red Cell Distribution Width 14.2 11.0-15.5 % Platelet Count 248 130-400 K/uL Mean Platelet Volume 9.1 7.5-10.5 fL Immature Granulocyte % (Auto) 0.3 0-1 % Neutrophils (%) (Auto) 75.4 40.0-77.0 % Lymphocytes (%) (Auto) 12.3 L 21.0-51.0 % Monocytes (%) (Auto) 8.3 3.0-13.0 % Eosinophils (%) (Auto) 3.5 0.0-8.0 % Basophils (%) (Auto) 0.2 0.0-5.0 % Neutrophils # (Auto) 5.0 1.8-7.7 K/uL Lymphocytes # (Auto) 0.8 L 1.0-4.8 K/uL Monocytes # (Auto) 0.6 0.1-1.0 K/uL Eosinophils # (Auto) 0.23 0.00-0.70 K/uL Basophils # (Auto) 0.01 0.00-0.20 K/uL Absolute Immature Granulocyte (auto 0.02 0-1 K/uL Nucleated Red Blood Cells 0.0 0.0-0.19 % Total Bilirubin 0.1 L 0.2-1.0 mg/dL Aspartate Amino Transf (AST/SGOT) 18 10-37 U/L Alanine Aminotransferase (ALT/SGPT) 17 12-78 U/L Alkaline Phosphatase 180 H 50-136 U/L Total Protein 5.8 L 6.0-8.3 g/dL Albumin 2.7 L 3.5-5.0 g/dL PROBLEM LIST : Fall Unspecified open wound to right elbow Unspecified open wound to left hand PLAN: Wound care to Right elbow and left hand- [place] with betadine daily, leave open to air Keep wounds clean and dry Comorbidities per primary care team Further Management per hospital course. Thank You for the consult and allowing us to participate in the care of this patient. PAM RIVAS NP Jan 20, 2025 15:01
--- NOTE | 2025-01-20 21:30 | PN ---
endocrinology progress note Date of Service: Jan 20, 2025 subjective: she is started on methimazole 5 mg daily. cardiology following for arrhythmia and hypotension. TSH 0.15, t 3 free 2.87 and t 4 free 1.04 am cortisol is 21 and no evidence of adrenal insufficiency. 01/16/25: FINDINGS: The thyroid gland is normal in caliber with heterogenous tissue echotexture. The right thyroid lobe measures 4.4 x 2.4 x 1.3 cm and the left thyroid lobe measures 5.0 x 1.6 x 1.5 cm in the craniocaudal, AP, and transverse dimensions respectively. The isthmus measures 0.40 cm in AP dimension. Right lobe: There is a cystic nodule that measures 1.0 x 1.0 x 1.0 cm at the upper pole (TR1). There is a hypoechoic solid nodule that measures 1.0 x 1.0 x 1.0 cm at the upper pole (TR4). There is a hypoechoic solid nodule that measures 1.0 x 0.3 x 1.0 cm at the upper pole (TR4). There is a hypoechoic solid nodule that measures 0.4 x 0.3 x 0.4 cm at the mid pole (TR4). There is a hypoechoic solid nodule that measures 0.6 x 0.3 x 0.6 cm at the mid pole (TR4). There is a hypoechoic solid nodule that measures 0.4 x 0.3 x 0.4 cm at the lower pole (TR4). There is a hypoechoic solid nodule that measures 1.4 x 1.4 x 1.1 cm at the lower pole (TR5). There is a hypoechoic solid nodule that measures 1.0 x 0.5 x 1.0 cm at the lower pole (TR4). Left lobe: There is a cystic nodule that measures 0.3 x 0.3 x 0.4 cm at the upper pole (TR1). There is a hypoechoic solid nodule that measures 1.0 x 1.1 x 1.0 cm at the upper pole (TR5). There is a hypoechoic solid nodule that measures 1.3 x 1.0 x 1.0 cm at the mid pole (TR4). There is a hypoechoic solid nodule that measures 1.0 x 0.3 x 0.4 cm at the mid pole (TR4). There is a cystic nodule that measures 1.0 x 0.3 x 1.0 cm at the lower pole (TR1). There is a hypoechoic solid nodule that measures 1.3 x 1.0 x 1.0 cm at the lower pole (TR4). No significantly enlarged lymph nodes. IMPRESSION: Heterogenous tissue echotexture of both the lobes of the thyroid, of concern for thyroiditis. Nodules in both lobes of the thyroid. TI-RADS follow up recommendations: TR1: no FNA required TR2: no FNA required TR3: more than or equal to 1.5 cm follow up, more than or equal to 2.5 cm FNA follow up: 1, 3 and 5 years TR4: more than or equal to 1.0 cm follow up, more than or equal to 1.5 cm FNA follow up: 1, 2, 3 and 5 years TR5: more than or equal to 0.5 cm follow up, more than or equal to 1.0 cm FNA annual follow up for up to 5 years PAST MEDICAL HISTORY: History of COPD, dementia, anxiety, peripheral arterial disease, prior history of smoking PAST SURGICAL HISTORY: , history of surgery for abdominal aneurysm, cholecystectomy, prior history of lower extremity surgery for peripheral arterial disease PAST SOCIAL HISTORY: Patient is a resident of [facility] for the past five years, she has been using a wheelchair over the last one one due to recurrent syncopal episodes, needs assistance with IADLs FAMILY HISTORY: Denies major family history of medical conditions, denies any neurologic conditions Allergies: No known drug allergies Home medications: jail we will be sending list of medications to be reconciled and updated Coded Allergies: No Known Drug Allergies (Unverified Allergy, Unknown, 01/13/25) DIAGNOSTICS / RADIOLOGY: Chest x-ray and CT head without contrast is pending ASSESSMENT: thyrotoxicosis clinically and biochemically thyrotoxic despite mildly low tsh. reports heat intolerance, palpitations, 15 lbs weight loss. TSH 0.15, t 3 free 2.87 and t 4 free 1.04 am cortisol 21, so no evidence of adrenal insufficiency. thyroid nodules thyroid u/s show small thyroid nodules Orthostatic hypotension, POA Recurrent syncopal episodes with fall, POA Frailty/debility, POA History of orthostasis, POA History of COPD, POA History of anxiety disorder/ Depression, POA History of mild dementia, POA Hyperlipidemia, POA History of insomnia, POA PLAN: continue methimazole 5 mg daily and decrease to 2.5 mg as outpatient, if high TSH. repeat thyroid ultrasound in 1 year. follow on TSI. repeat thyroid function in 1 month. Vitals/Labs Vital Signs Date Time Temp Pulse Resp B/P (MAP) Pulse Ox O2 Delivery O2 Flow Rate FiO2 01/20/25 11:31 74 18 N/A Room Air 21 01/20/25 11:10 103/60 97 01/20/25 11:05 98.1 01/20/25 08:00 0 Laboratory Tests 01/20/25 04:21 Medications Current Medications Sodium Chloride 1,000 ml @ 50 mls/hr Q20H IV Last administered on 01/20/25at 06:12; Start 01/13/25 at 14:30; Stop 01/20/25 at 15:10; Status DC Acetaminophen 650 mg Q6H PRN PO Last administered on 01/18/25at 18:31; Start 01/13/25 at 14:30; Stop 01/20/25 at 15:10; Status DC Ondansetron HCl 4 mg Q6H PRN IVP; Start 01/13/25 at 14:30; Stop 01/20/25 at 15:10; Status DC Montelukast Sodium 10 mg HS PO Last administered on 01/19/25at 21:31; Start 01/13/25 at 21:00; Stop 01/20/25 at 15:10; Status DC Trazodone HCl 75 mg HS PO; Start 01/13/25 at 21:00; Stop 01/13/25 at 14:58; Status DC Venlafaxine HCl 75 mg DAILY PO; Start 01/14/25 at 09:00; Stop 01/13/25 at 19:46; Status DC Atorvastatin Calcium 40 mg HS PO Last administered on 01/19/25at 21:31; Start 01/13/25 at 21:00; Stop 01/20/25 at 15:10; Status DC Clonazepam 0.5 mg BID PRN PO; Start 01/13/25 at 14:30; Stop 01/20/25 at 15:10; Status DC Albuterol 1 udvial Q6H PRN IH; Start 01/13/25 at 14:30; Stop 01/14/25 at 03:42; Status DC Memantine 5 mg DAILY PO Last administered on 01/20/25at 09:04; Start 01/14/25 at 09:00; Stop 01/20/25 at 15:10; Status DC Tiotropium [place] 18 mcg DAILY IH; Start 01/14/25 at 09:00; Stop 01/13/25 at 15:57; Status DC Polyethylene Glycol 17 gm DAILY PRN PO Last administered on 01/18/25at 09:29; Start 01/13/25 at 14:30; Stop 01/20/25 at 15:10; Status DC Sodium Chloride 500 ml @ 0 mls/hr ONCE ONCE IV Last administered on 01/13/25at 15:57; Start 01/13/25 at 15:30; Stop 01/13/25 at 15:56; Status DC Potassium Chloride 100 ml @ 100 mls/hr AD PRN IV; Start 01/13/25 at 15:30; Stop 01/20/25 at 15:10; Status DC Potassium Chloride 20 meq AD PRN PO; Start 01/13/25 at 15:30; Stop 01/20/25 at 15:10; Status DC Potassium Chloride 20 meq AD PRN PO Last administered on 01/17/25at 11:14; Start 01/13/25 at 15:30; Stop 01/20/25 at 15:10; Status DC Magnesium Sulfate 50 ml @ 0 mls/hr PROTOCOL IV Last administered on 01/15/25at 06:08; Start 01/13/25 at 15:30; Stop 01/15/25 at 08:39; Status DC Midodrine 5 mg TID PRN PO Last administered on 01/18/25at 03:50; Start 01/13/25 at 16:00; Stop 01/18/25 at 12:02; Status DC Trazodone HCl 50 mg HS PO Last administered on 01/19/25at 21:31; Start 01/13/25 at 21:00; Stop 01/20/25 at 15:10; Status DC Folic Acid 1 mg Q24H IV Last administered on 01/18/25at 16:49; Start 01/13/25 at 16:30; Stop 01/18/25 at 16:30; Status DC Hydralazine HCl 10 mg Q6H PRN IV; Start 01/13/25 at 17:30; Stop 01/20/25 at 15:10; Status DC Lactic Acid 1 GRAM DAILY TP Last administered on 01/19/25at 09:24; Start 01/14/25 at 09:00; Stop 01/20/25 at 15:10; Status DC Neomycin/ Polymyxin/ Bacitracin 1 appl DAILY TP Last administered on 01/20/25at 09:04; Start 01/14/25 at 09:00; Stop 01/20/25 at 15:10; Status DC Sucralfate 1 gm HS PO Last administered on 01/19/25at 21:32; Start 01/13/25 at 21:00; Stop 01/20/25 at 15:10; Status DC Calcium Carbonate 500 mg DAILY PO Last administered on 01/20/25at 09:04; Start 01/14/25 at 09:00; Stop 01/20/25 at 15:10; Status DC Artificial Tears TID OP Last administered on 01/20/25at 09:05; Start 01/13/25 at 21:00; Stop 01/20/25 at 15:10; Status DC Home Med DAILY PO Last administered on 01/16/25at 09:33; Start 01/14/25 at 09:00; Stop 01/20/25 at 15:10; Status DC Diphenhydramine HCl 25 mg HS PRN PO; Start 01/13/25 at 19:30; Stop 01/20/25 at 15:10; Status DC Lactobacillus Rhamnosus 1 each DAILY PO Last administered on 01/19/25at 09:21; Start 01/14/25 at 09:00; Stop 01/20/25 at 15:10; Status DC Melatonin 5 mg HS PO Last administered on 01/19/25at 21:31; Start 01/13/25 at 21:00; Stop 01/20/25 at 15:10; Status DC Venlafaxine HCl 150 mg DAILY PO Last administered on 01/20/25at 09:04; Start 01/14/25 at 09:00; Stop 01/20/25 at 15:10; Status DC Albuterol Sulfate 2.5 mg Q6H PRN IH; Start 01/14/25 at 04:00; Stop 01/20/25 at 15:10; Status DC Ipratropium [place] 0.5 mg [id number] IH Last administered on 01/20/25at 11:29; Start 01/14/25 at 06:00; Stop 01/20/25 at 15:10; Status DC Midodrine 2.5 mg DAILY PO Last administered on 01/15/25at 08:41; Start 01/14/25 at 09:00; Stop 01/16/25 at 07:02; Status DC Methimazole 10 mg DAILY PO; Start 01/15/25 at 09:00; Stop 01/14/25 at 12:24; Status DC Methimazole 5 mg DAILY PO Last administered on 01/20/25at 09:04; Start 01/15/25 at 09:00; Stop 01/20/25 at 15:10; Status DC Iohexol 75 ml STK-MED ONCE IV; Start 01/14/25 at 13:19; Stop 01/14/25 at 13:20; Status DC Potassium Chloride 100 ml @ 50 mls/hr ONCE ONCE IV Last administered on 01/15/25at 11:33; Start 01/15/25 at 09:00; Stop 01/15/25 at 10:59; Status DC Magnesium Sulfate 50 ml @ 0 mls/hr PROTOCOL IV Last administered on 01/19/25at 12:29; Start 01/15/25 at 09:00; Stop 01/20/25 at 15:10; Status DC Midodrine 2.5 mg Q8H5 PO Last administered on 01/17/25at 20:59; Start 01/16/25 at 07:00; Stop 01/18/25 at 12:02; Status DC Pindolol 5 mg ONCE STAT PO Last administered on 01/17/25at 11:46; Start 01/17/25 at 11:29; Stop 01/17/25 at 11:42; Status DC Pindolol 5 mg BID PO Last administered on 01/18/25at 20:43; Start 01/17/25 at 21:00; Stop 01/19/25 at 08:44; Status DC Sodium Chloride 594 ml @ 198 mls/hr ONCE ONCE IV Last administered on 01/17/25at 11:44; Start 01/17/25 at 11:30; Stop 01/17/25 at 14:29; Status DC Potassium Chloride 40 meq ONCE ONCE PO Last administered on 01/17/25at 14:17; Start 01/17/25 at 14:00; Stop 01/17/25 at 14:01; Status DC Sodium Chloride 594 ml @ 198 mls/hr ONCE ONCE IV Last administered on 01/18/25at 13:22; Start 01/18/25 at 12:00; Stop 01/18/25 at 14:59; Status DC Propafenone HCl 75 mg Q8H PO; Start 01/19/25 at 09:00; Stop 01/19/25 at 09:09; Status DC Fludrocortisone Acetate 0.1 mg DAILY PO Last administered on 01/20/25at 09:04; Start 01/19/25 at 09:00; Stop 01/20/25 at 15:10; Status DC Enoxaparin Sodium 30 mg HS SQ Last administered on 01/19/25at 21:40; Start 01/19/25 at 21:00; Stop 01/20/25 at 15:10; Status DC Propafenone HCl 150 mg BID PO Last administered on 01/20/25at 09:04; Start 01/19/25 at 09:30; Stop 01/20/25 at 15:10; Status DC PRISCILA ULRICH MD Jan 20, 2025 21:30
== END 2025-01-20 14:25 | DRG 312 ==
LOC: EDH 13:30 → DIRECT 13:31 → 2AH 23:49
PROVIDERS: ADMIT Internal Medicine; ATTEND Internal Medicine
DX: I95.1 Orthostatic hypotension (principal); I47.10 Supraventricular tachycardia, unspecified; E44.1 Mild protein-calorie malnutrition; Z68.1 Body mass index [BMI] 19.9 or less, adult; I65.23 Occlusion and stenosis of bilateral carotid arteries; E05.20 Thyrotoxicosis with toxic multinodular goiter without thyrotoxic crisis or storm; F32.A Depression, unspecified; F41.9 Anxiety disorder, unspecified; G47.00 Insomnia, unspecified; E78.5 Hyperlipidemia, unspecified; S51.001A Unspecified open wound of right elbow, initial encounter; S61.402A Unspecified open wound of left hand, initial encounter; F03.A0 Unspecified dementia, mild, without behavioral disturbance, psychotic disturbance, mood disturbance, and anxiety; I73.9 Peripheral vascular disease, unspecified; J44.9 Chronic obstructive pulmonary disease, unspecified; Z66 Do not resuscitate; W18.39XA Other fall on same level, initial encounter; Z87.891 Personal history of nicotine dependence; Z79.899 Other long term (current) drug therapy; Y93.89 Activity, other specified; Y92.89 Other specified places as the place of occurrence of the external cause; Y99.8 Other external cause status; Z98.891 History of uterine scar from previous surgery; Z90.49 Acquired absence of other specified parts of digestive tract
CPT/HCPCS: 36415; 70450; 70496; 70498; 71045; 76536; 76705; 80048; 80053; 81003; 82533; 82550; 82607; 82746; 83615; 83735; 84145; 84439; 84443; 84445; 84481; 85025; 85027; 85610; 85730; 86140; 86850; 86900; 86901; 93005; 93306; 93356; 93880; 94640; G0378; J1650; J3475; J3480; J3490; Q9967